=== PATIENT | male | born 1955 | race Caucasian/White ===

== ENCOUNTER 2017-03-30 01:50 | Emergency (ER) | payer OTHER ==
[~2017-03-30] VITALS: Ht 175.3 cm; Wt 88.0 kg
[2017-03-30] VITALS (7 sets, daily range): BP systolic 188–231; BP diastolic 98–131; PULSE 62–83; RESP 16–19; TEMP 98.5–99.1; O2SAT 95–99
[~2017-03-30 01:50] MED LIST: CLON.1 PO; DIVA250T PO; GLIP1TAB18 PO; GLUCTES27 XX; HYDR-3580 PO; HYDRA25 PO; LISI40TA PO; Z.0.WALKERFOLD
[2017-03-30] MEDS ORDERED: HYDR-3799 PO (02:14)
[2017-03-30] MEDS ORDERED: DIVA250T PO (02:14)
[2017-03-30] MEDS ORDERED: GLIP5TAB8 PO (02:14)
[2017-03-30] MEDS ORDERED: CLON0.1T PO (02:14)
[2017-03-30] MEDS ORDERED: LOSA100T PO (02:14)
[2017-03-30] MEDS ORDERED: METF850T PO (02:14)
[2017-03-30] MEDS ORDERED: SODIUM CHLORIDE 0.9% FLUSH 10 ML FLUSH IVF PRN (02:15)
[2017-03-30] MEDS ORDERED: PROCHLORPERAZINE INJ 10 MG/2 ML VIAL IVP ONE (02:15)
[2017-03-30] MEDS ORDERED: diphenhydrAMINE HCL 50 MG/ML VIAL IVP ONE (02:15)
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
[2017-03-30] MEDS ORDERED: KETOROLAC TROMETHAMINE 30 MG/ML (IVP) VIAL IVP ONE (03:45)
[2017-03-30] MEDS: METOPROLOL TARTRATE 5 MG/5 ML VIAL IV PUSH PRN ×2 (03:53→04:09)
[2017-03-30 04:07] LABS: AUTOMATED NEUTROPHIL # 5.3 TH/MM3 (1.8-7.7); BASOPHIL % 0.5 % (0.0-2.0); EOSINOPHIL # 0.6 TH/MM3 (0-0.4); EOSINOPHIL % 7.2 % (0.0-4.0); HEMATOCRIT 32.4 % (39.0-51.0); HEMO FLAGS DIFF FINAL; LYMPH % 18.2 % (9.0-44.0); LYMPHOCYTE # 1.4 TH/MM3 (1.0-4.8); MEAN CELL VOLUME 87.9 FL (80.0-100.0); MEAN CORPUSCULAR HEMOGLOBIN 29.5 PG (27.0-34.0); MEAN CORPUSCULAR HGB CONC 33.6 % (32.0-36.0); NEUT % 66.1 % (16.0-70.0); PLATELET COUNT 162 TH/MM3 (150-450); RED BLOOD COUNT 3.68 MIL/MM3 (4.50-5.90); RED CELL DISTRIBUTION WIDTH 15.6 % (11.6-17.2)
[2017-03-30 04:11] LABS: BICARBONATE 28.1 MEQ/L (21.0-32.0)
--- NOTE | 2017-03-30 05:25 | RADRPT ---
EXAM DATE/TIME: 03/30/2017 04:47 [place] COMPARISON: No previous studies available for comparison. INDICATIONS : Headaches with high blood pressure. RADIATION DOSE: 38.02 CTDIvol (mGy) MEDICAL HISTORY : Hypertension. Diabetes mellitus type 2. SURGICAL HISTORY : Nephrectomy, right. ENCOUNTER: Initial ACUITY: 1 day PAIN SCALE: 8/10 LOCATION: Bilateral cranial TECHNIQUE: Multiple contiguous axial images were obtained of the head. Using automated exposure control and adj ustment of the mA and/or kV according to patient size, radiation dose was kept as low as reasonably a chievable to obtain optimal diagnostic quality images. DICOM format image data is available electro nically for review and comparison. FINDINGS: There is a 1.6 cm low-attenuation lesion left parietal lobe with calcification similar to prior CT fr om March 06, 2016. No mass effect or shift. No hydrocephalus. No new brain lesions identified. Sinus es are clear.. CONCLUSION: 1. Stable 1.6 cm lesion left parietal lobe with calcification. This was previously evaluated on MRI. No new findings. Wilmar Velazco MD on March 30, 2017 at 5:20 Board Certified Radiologist. This report was verified electronically.
--- NOTE | 2017-03-30 14:00 | EKG ---
Date Performed: 03/30/2017 Time Performed: 03:58:44 PTAGE: 61 years EKG: Sinus rhythm RIGHT BUNDLE BRANCH BLOCK Compared to prior tracing no significant change ABNORMAL ECG PREVIOUS TRACING : 06/03/2016 16.43 DOCTOR: Ellen Lanza Interpretating Date/Time 03/30/2017 13:55:35
== END 2017-03-30 06:05 | disposition home or self-care (01) ==
LOC: NEPC 01:50
DX: G44.209 Tension-type headache, unspecified, not intractable (principal); I10 Essential (primary) hypertension; E11.9 Type 2 diabetes mellitus without complications; Z79.84 Long term (current) use of oral hypoglycemic drugs; I45.10 Unspecified right bundle-branch block; R07.9 Chest pain, unspecified
CPT/HCPCS: 70450; 80048; 84484; 85025; 93005; 96374; 96375; 99285; J0780; J1200; J1885

== ENCOUNTER 2017-04-01 20:37 | Emergency (ER) | payer OTHER ==
[~2017-04-01] VITALS: Ht 175.3 cm; Wt 91.5 kg
[~2017-04-01 20:37] MED LIST changes: -CLON.1 PO; +CLON0.1T PO; -GLIP1TAB18 PO; +GLIP5TAB8 PO; -GLUCTES27 XX; -HYDR-3580 PO; +HYDR-3799 PO; -HYDRA25 PO; -LISI40TA PO; +LOSA100T PO; +METF850T PO; -Z.0.WALKERFOLD
[2017-04-01 20:39] VITALS: BP 249/122; PULSE 83; RESP 18; TEMP 97.6; O2SAT 98
[2017-04-01 20:40] VITALS: BP 244/120
[2017-04-01] MEDS ORDERED: KETOROLAC TROMETHAMINE 30 MG/ML (IVP) VIAL IVP ONE (21:30)
[2017-04-01] MEDS ORDERED: diphenhydrAMINE HCL 50 MG/ML VIAL IVP ONE (21:30)
[2017-04-01] MEDS ORDERED: PROCHLORPERAZINE INJ 10 MG/2 ML VIAL IVP ONE (21:30)
[2017-04-01 22:09] VITALS: BP 225/114; PULSE 78; RESP 16; O2SAT 97
--- NOTE | 2017-04-02 05:57 | PD ---
Data Data Last Documented VS Vital Signs Date Time Temp Pulse Resp B/P (MAP) Pulse Ox O2 Delivery O2 Flow Rate FiO2 04/01/17 22:09 78 16 225/114 (151) 97 Room Air 04/01/17 20:39 97.6 Orders Orders Iv Access Insert/Monitor (04/01/17 21:21) Ketorolac Inj (Toradol Inj) (04/01/17 21:30) Prochlorperazine Inj (Compazine Inj) (04/01/17 21:30) Diphenhydramine Inj (Benadryl Inj) (04/01/17 21:30) MDM Supervised Visit with EMMA: Yes Narrative Course Patient care assumed from Heather [facility] at 2300. This is a 61 male presents emergency department for the second time this week for evaluation of headache. Patient is feeling better after medications administered, his blood pressure is elevated but she did have a CAT scan of his head and basic lab work already this week. No focalized weakness. I did discuss the risks benefits competitions and alternatives have a lumbar puncture to exclude subarachnoid hemorrhage and discussed risks of missing a subarachnoid hemorrhage. Patient verbalized understanding and wishes to forego lumbar puncture at this time except and risks of missed subarachnoid hemorrhage. At this point I discussed with him management of long-term blood pressure need follow-up with his primary care physician Dr. Almaguer. At this time there is no indication to acutely lower his blood pressure he is not apparently having any and organ failure from his blood pressure at this time. Diagnosis Primary Impression: Headache Disposition: 01 DISCHARGE HOME Condition: Stable Cruz Feliciano MD Apr 02, 2017 05:57
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
== END 2017-04-02 05:57 | disposition home or self-care (01) ==
LOC: NEPC 20:37
DX: R51 Headache (principal); R42 Dizziness and giddiness; E11.9 Type 2 diabetes mellitus without complications; I10 Essential (primary) hypertension; R56.9 Unspecified convulsions; Z87.820 Personal history of traumatic brain injury; Z86.73 Personal history of transient ischemic attack (TIA), and cerebral infarction without residual deficits; Z79.899 Other long term (current) drug therapy; Z88.0 Allergy status to penicillin
CPT/HCPCS: 96374; 96375; 99284; J0780; J1200; J1885

== ENCOUNTER 2017-08-16 22:05 | Inpatient (IN) | payer OTHER ==
[~2017-08-16] VITALS: Ht 175.3 cm; Wt 83.3 kg
[2017-08-16 22:06] VITALS: BP 220/110; PULSE 80; RESP 16; TEMP 98.6; O2SAT 98
[2017-08-17] VITALS (16 sets, daily range): BP systolic 161–204; BP diastolic 88–101; PULSE 72–90; RESP 16–20; TEMP 96–97.9; O2SAT 97–100
[2017-08-17] MEDS ORDERED: hydrALAZINE HCL 20 MG/ML VIAL IV PUSH ONE ×2 (00:30→02:15)
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
[2017-08-17 00:56] LABS: AUTOMATED NEUTROPHIL # 5.8 TH/MM3 (1.8-7.7); BASOPHIL # 0.1 TH/MM3 (0-0.2); BASOPHIL % 0.8 % (0.0-2.0); EOSINOPHIL # 0.4 TH/MM3 (0-0.4); EOSINOPHIL % 4.1 % (0.0-4.0); HEMATOCRIT 33.7 % (39.0-51.0); HEMOGLOBIN 11.6 GM/DL (13.0-17.0); LYMPH % 22.4 % (9.0-44.0); LYMPHOCYTE # 2.1 TH/MM3 (1.0-4.8); MEAN CELL VOLUME 85.9 FL (80.0-100.0); MEAN CORPUSCULAR HEMOGLOBIN 29.6 PG (27.0-34.0); MEAN CORPUSCULAR HGB CONC 34.4 % (32.0-36.0); MEAN PLATELET VOLUME 8.3 FL (7.0-11.0); MONO % 8.8 % (0.0-8.0); MONOCYTE # 0.8 TH/MM3 (0-0.9); NEUT % 63.9 % (16.0-70.0); PLATELET COUNT 161 TH/MM3 (150-450); RED BLOOD COUNT 3.93 MIL/MM3 (4.50-5.90); RED CELL DISTRIBUTION WIDTH 14.9 % (11.6-17.2); WHITE BLOOD COUNT 9.2 TH/MM3 (4.0-11.0)
[2017-08-17 01:07] LABS: PROTHROMBIN TIME - PATIENT 10.1 SEC (9.8-11.6)
--- NOTE | 2017-08-17 01:14 | RADRPT ---
EXAM DATE/TIME: 08/17/2017 00:49 [facility] COMPARISON: CHEST SINGLE AP, March 25, 2015, 0:03. INDICATIONS : Short of breath, chest pain. MEDICAL HISTORY : None. SURGICAL HISTORY : None. ENCOUNTER: Initial ACUITY: 1 day PAIN SCORE: 4/10 LOCATION: Bilateral chest FINDINGS: A single view of the chest demonstrates no focal consolidation or effusion. No pneumothorax. Heart si ze within normal limits and mildly tortuous aorta. CONCLUSION: 1. No active disease. Wilmar Velazco MD on August 17, 2017 at 1:11 Board Certified Radiologist. This report was verified electronically.
--- NOTE | 2017-08-17 01:39 | RADRPT ---
EXAM DATE/TIME: 08/17/2017 01:00 [facility] COMPARISON: MRI BRAIN W/O CONTRAST, March 06, 2016, 17:19. INDICATIONS : Cephalgia. RADIATION DOSE: 38.83 CTDIvol (mGy) MEDICAL HISTORY : Seizures. Cardiovascular disease TBI SURGICAL HISTORY : None. ENCOUNTER: Initial ACUITY: 1 day PAIN SCALE: 5/10 LOCATION: cranial TECHNIQUE: Multiple contiguous axial images were obtained of the head. Using automated exposure control and adj ustment of the mA and/or kV according to patient size, radiation dose was kept as low as reasonably a chievable to obtain optimal diagnostic quality images. DICOM format image data is available electro nically for review and comparison. FINDINGS: There is a focal area of low attenuation left parietal lobe with a patient, no significant change fro m February 2016. Prior MRI brain reveal an area of gliosis. No new mass or shift. No hydrocephalus. No evidence for recent infarction. No acute bony abnormalities. CONCLUSION: 1. Stable area of presumed gliosis and calcification in the left parietal lobe compared with multiple prior CTs. No acute intracranial abnormalities. Wilmar Velazco MD on August 17, 2017 at 1:33 Board Certified Radiologist. This report was verified electronically.
[2017-08-17 02:16] LABS: BICARBONATE 29.9 MEQ/L (21.0-32.0); BLOOD UREA NITROGEN 39 MG/DL (7-18); CALCIUM 8.9 MG/DL (8.5-10.1); CHLORIDE 101 MEQ/L (98-107); CREATININE 2.01 MG/DL (0.60-1.30); GLOMERULAR FILTRATION RATE 34 ML/MIN (>89); GLUCOSE,RANDOM 188 MG/DL (74-106); MAGNESIUM 2.2 MG/DL (1.5-2.5); SODIUM (NA) 136 MEQ/L (136-145)
[2017-08-17 02:19] LABS: TROPONIN I LESS THAN 0.02 NG/ML (0.02-0.05)
[2017-08-17] MEDS ORDERED: ASPIRIN 81 MG CHEW TAB CHEW ONE (02:45)
[2017-08-17] MEDS ORDERED: NITROGLYCERIN 2% OINT 1 GM PACKET TOPICAL ONE (02:45)
[2017-08-17] MEDS: SODIUM CHLORIDE 0.9% FLUSH 10 ML FLUSH IVF PRN ×2 (03:18→21:34)
[2017-08-17] MEDS: cloNIDine HCL 0.1 MG TAB PO PRN ×4 (05:44→22:48)
[2017-08-17] MEDS: DIVALPROEX SODIUM DELAYED RELEASE 250 MG TAB PO SCH ×3 (08:17→17:34)
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
[2017-08-17] MEDS ORDERED: DEXTROSE 50% IN WATER 50 ML VIAL(D50) IV PUSH PRN (10:00)
[2017-08-17] MEDS ORDERED: GLUCAGON 1 MG/ML VIAL OTHER PRN (10:00)
[2017-08-17] MEDS: NIFEdipine 60 MG SUSTAINED RELEASE TAB PO SCH ×2 (10:25→21:34)
[2017-08-17] MEDS ORDERED: ONDANSETRON HCL 4 MG/2 ML VIAL IV PRN (11:45)
[2017-08-17 12:04] LABS: BICARBONATE 31.1 MEQ/L (21.0-32.0); BLOOD UREA NITROGEN 34 MG/DL (7-18); CALCIUM 9.3 MG/DL (8.5-10.1); CHLORIDE 100 MEQ/L (98-107); CREATININE 1.86 MG/DL (0.60-1.30); GLOMERULAR FILTRATION RATE 37 ML/MIN (>89); GLUCOSE,RANDOM 243 MG/DL (74-106); SODIUM (NA) 135 MEQ/L (136-145)
[2017-08-17] MEDS: INSULIN ASPART SUPPLEMENTAL SCALE SQ SCH ×3 (12:21→21:37)
[2017-08-17 16:24] LABS: HEMOGLOBIN A1C 7.5 % (4.3-6.0)
[2017-08-17] MEDS: ACETAMINOPHEN 325 MG TAB PO PRN ×2 (17:41→22:48)
[2017-08-18] VITALS (22 sets, daily range): BP systolic 151–188; BP diastolic 76–92; PULSE 70–99; RESP 18–20; TEMP 98.2–99.1; O2SAT 97–100
--- NOTE | 2017-08-18 00:37 | EKG ---
Date Performed: 08/17/2017 Time Performed: 02:18:24 PTAGE: 61 years EKG: Sinus rhythm RIGHT BUNDLE BRANCH BLOCK ABNORMAL ECG PREVIOUS TRACING : 03/30/2017 03.58 Since the prior tracing, there has been no significant feliz DOCTOR: Farzad Perez Interpretating Date/Time 08/18/2017 00:36:07
[2017-08-18 06:40] LABS: AUTOMATED NEUTROPHIL # 8.3 TH/MM3 (1.8-7.7); BASOPHIL # 0.1 TH/MM3 (0-0.2); BASOPHIL % 0.5 % (0.0-2.0); EOSINOPHIL # 0.3 TH/MM3 (0-0.4); EOSINOPHIL % 2.9 % (0.0-4.0); HEMATOCRIT 40.1 % (39.0-51.0); LYMPH % 14.2 % (9.0-44.0); LYMPHOCYTE # 1.5 TH/MM3 (1.0-4.8); MEAN CELL VOLUME 86.5 FL (80.0-100.0); MEAN CORPUSCULAR HEMOGLOBIN 30.1 PG (27.0-34.0); MEAN CORPUSCULAR HGB CONC 34.8 % (32.0-36.0); MEAN PLATELET VOLUME 8.5 FL (7.0-11.0); MONO % 6.2 % (0.0-8.0); MONOCYTE # 0.7 TH/MM3 (0-0.9); NEUT % 76.2 % (16.0-70.0); PLATELET COUNT 240 TH/MM3 (150-450); RED BLOOD COUNT 4.63 MIL/MM3 (4.50-5.90); RED CELL DISTRIBUTION WIDTH 15.4 % (11.6-17.2); WHITE BLOOD COUNT 10.9 TH/MM3 (4.0-11.0)
[2017-08-18 07:03] LABS: BICARBONATE 24.2 MEQ/L (21.0-32.0); CALCIUM 9.5 MG/DL (8.5-10.1); CREATININE 1.88 MG/DL (0.60-1.30); MAGNESIUM 2.2 MG/DL (1.5-2.5)
[2017-08-18] MEDS: ACETAMINOPHEN 325 MG TAB PO PRN ×3 (08:55→19:51)
[2017-08-18] MEDS: DIVALPROEX SODIUM DELAYED RELEASE 250 MG TAB PO SCH ×3 (08:55→17:17)
[2017-08-18] MEDS: NIFEdipine 60 MG SUSTAINED RELEASE TAB PO SCH ×2 (08:56→19:50)
[2017-08-18] MEDS: ASPIRIN EC 81 MG TABEC PO SCH (08:56)
[2017-08-18] MEDS: cloNIDine HCL 0.1 MG TAB PO PRN ×2 (08:56→23:16)
[2017-08-18] MEDS: INSULIN ASPART SUPPLEMENTAL SCALE SQ SCH ×4 (09:04→19:51)
[2017-08-18] MEDS ORDERED: NIFE60TA8 PO (15:49)
--- NOTE | 2017-08-18 16:20 | ECHRPT ---
Indication: HEART FAILURE CONCLUSIONS Normal left ventricular size. Mild concentric left ventricular hypertrophy. The left ventricular systolic function is hyperdynamic with an estimated ejection fraction in the ra nge of 65- 70%. There is trace tricuspid valve regurgitation. BP: 180 / 101 HR: 86 Rhythm: MEASUREMENTS (Male / Female) Normal Values Technical Quality:Good 2D ECHO LV Diastolic Diameter PLAX 4.3 cm 4.2 - 5.9 / 3.9 - 5.3 cm LV Systolic Diameter PLAX 3.3 cm IVS Diastolic Thickness 1.5 cm 0.6 - 1.0 / 0.6 - 0.9 cm LVPW Diastolic Thickness 1.0 cm 0.6 - 1.0 / 0.6 - 0.9 cm LV Relative Wall Thickness 0.6 RV Internal Dim ED PLAX 2.1 cm LA Systolic Diameter LX 3.8 cm 3.0 - 4.0 / 2.7 - 3.8 cm M-MODE Aortic Root Diameter MM 3.4 cm AV Cusp Separation MM 2.4 cm DOPPLER Mitral E Point Velocity 81.2 cm/s Mitral A Point Velocity 116.0 cm/s Mitral E to A Ratio 0.7 TR Peak Velocity 305.0 cm/s TR Peak Gradient 37.2 mmHg FINDINGS LEFT VENTRICLE Normal left ventricular size. Mild concentric left ventricular hypertrophy. The left ventricular systolic function is hyperdynamic with an estimated ejection fraction in the ra nge of 65- 70%. RIGHT VENTRICLE Normal right ventricular size and systolic function. LEFT ATRIUM The left atrial size is normal. RIGHT ATRIUM The right atrial size is normal. ATRIAL SEPTUM Normal atrial septal thickness without atrial level shunting by limited color doppler interrogation. AORTA The aortic root and proximal ascending aorta are normal in size on limited imaging. MITRAL VALVE Trace mitral valve regurgitation. AORTIC VALVE Trileaflet aortic valve. No aortic valve stenosis or regurgitation. TRICUSPID VALVE There is trace tricuspid valve regurgitation. PULMONARY VALVE The pulmonary valve is not well visualized. VESSELS The inferior vena cava is normal in size. PERICARDIUM No pericardial effusion. Christopher Dallas MD (Electronically Signed) Final Date:18 August 2017 16:19
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
[2017-08-18] MEDS: glipiZIDE 5 MG TAB PO SCH (17:17)
[2017-08-18] MEDS: METOPROLOL TARTRATE 25 MG TAB PO SCH (19:50)
[2017-08-19] VITALS (30 sets, daily range): BP systolic 149–186; BP diastolic 81–100; PULSE 67–94; RESP 16–18; TEMP 97.8–98.8; O2SAT 95–98
[2017-08-19] MEDS: ACETAMINOPHEN 325 MG TAB PO PRN (05:27)
[2017-08-19 06:37] LABS: BICARBONATE 24.6 MEQ/L (21.0-32.0); CALCIUM 9.8 MG/DL (8.5-10.1); CREATININE 2.03 MG/DL (0.60-1.30)
[2017-08-19] MEDS: INSULIN ASPART SUPPLEMENTAL SCALE SQ SCH ×4 (08:00→20:05)
[2017-08-19] MEDS: glipiZIDE 5 MG TAB PO SCH ×2 (08:42→18:14)
[2017-08-19] MEDS: NIFEdipine 60 MG SUSTAINED RELEASE TAB PO SCH ×2 (08:42→20:05)
[2017-08-19] MEDS: ASPIRIN EC 81 MG TABEC PO SCH (08:43)
[2017-08-19] MEDS: METOPROLOL TARTRATE 25 MG TAB PO SCH ×2 (08:43→20:05)
[2017-08-19] MEDS ORDERED: METO25TA3 PO (08:43)
[2017-08-19] MEDS: DIVALPROEX SODIUM DELAYED RELEASE 250 MG TAB PO SCH ×3 (08:43→18:14)
[2017-08-19] MEDS ORDERED: METOPROLOL TARTRATE 25 MG TAB PO ONE (10:15)
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
--- NOTE | 2017-08-19 17:29 | RADRPT ---
EXAM DATE/TIME: 08/19/2017 16:13 [facility] COMPARISON: No previous studies available for comparison. INDICATIONS : Accelerated hypertension. Elevated CK-MB. MEDICAL HISTORY : Hypertension. Seizures. Head trauma. Headaches. Numbness. Diabetes. HEENT problems. Eye problems. H earing problems. TIA. SURGICAL HISTORY : Tonsillectomy. Nephrectomy, right. Appendectomy. Abdominal Exploratory laparotomy. ENCOUNTER: Initial ACUITY: 1 day PAIN SCORE: 0/10 LOCATION: Bilateral flank PEAK FLOW VELOCITIES (cm/sec): aorta PROXIMAL: UTO MID: UTO DISTAL: 100.0 RIGHT RENAL ARTERY: PROXIMAL: UTO MID: UTO DISTAL: UTO RENAL ARTERY RATIO: --- Upper: Mid: Lower: LEFT RENAL ARTERY: PROXIMAL: 151.0 MID: 182.5 DISTAL: 206.2 RENAL ARTERY RATIO: 2.0 ARCUATE ARTERY RESISTIVE INDEX: Upper: 0.8 Mid: 0.7 Lower: 0.7 FINDINGS: Bowel gas obscures the proximal and mid aorta. The patient has undergone prior right nephrectomy. Nor mal low resistance waveform is seen on the left. Left renal vein is patent. Mild pelvocaliectasis wit hout hydronephrosis. CONCLUSION: 1. Prior right nephrectomy. 2. No appreciable renal artery stenosis on the left. 3. Mild pelvocaliectasis on the left without anton hydronephrosis. Remington Brady Jr., MD on August 19, 2017 at 17:17 Board Certified Radiologist. This report was verified electronically.
[2017-08-19] MEDS: traMADol HCL 50 MG TAB PO PRN (18:18)
[2017-08-20] VITALS (20 sets, daily range): BP systolic 145–182; BP diastolic 86–95; PULSE 70–97; RESP 16–18; TEMP 97.7–98.5; O2SAT 95–98
[2017-08-20] MEDS: traMADol HCL 50 MG TAB PO PRN ×2 (02:39→16:47)
[2017-08-20] MEDS: METOPROLOL TARTRATE 25 MG TAB PO SCH ×2 (08:03→21:24)
[2017-08-20] MEDS: DIVALPROEX SODIUM DELAYED RELEASE 250 MG TAB PO SCH ×3 (08:03→16:34)
[2017-08-20] MEDS: INSULIN ASPART SUPPLEMENTAL SCALE SQ SCH ×4 (08:03→21:00)
[2017-08-20] MEDS: NIFEdipine 60 MG SUSTAINED RELEASE TAB PO SCH ×2 (08:04→21:24)
[2017-08-20] MEDS: ASPIRIN EC 81 MG TABEC PO SCH (08:04)
[2017-08-20] MEDS: glipiZIDE 5 MG TAB PO SCH ×2 (08:04→16:34)
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
[2017-08-20 17:12] LABS: BILIRUBIN, URINE NEG (NEG); BLOOD, URINE SMALL (NEG); GLUCOSE,URINE 300 mg/dL (NEG); KETONE, URINE NEG (NEG); NITRITE,URINE NEG (NEG); PH, URINE 6.5 (5.0-8.5); SQUAMOUS EPITHELIAL CELL URINE <1 /hpf (0-5); URINE COLOR YELLOW (YELLW/STRAW); URINE LEUKOCYTE ESTERASE NEG (NEG)
[2017-08-20 20:44] LABS: ALBUMIN 3.3 GM/DL (3.4-5.0); ALKALINE PHOSPHATASE 84 U/L (45-117); ALT (GPT) 40 U/L (12-78); AST (GOT) 21 U/L (15-37); BICARBONATE 27.9 MEQ/L (21.0-32.0); BLOOD UREA NITROGEN 53 MG/DL (7-18); CALCIUM 9.8 MG/DL (8.5-10.1); CHLORIDE 97 MEQ/L (98-107); GLOMERULAR FILTRATION RATE 29 ML/MIN (>89); GLUCOSE,RANDOM 144 MG/DL (74-106); SODIUM (NA) 133 MEQ/L (136-145); TOTAL BILIRUBIN ADULT 0.4 MG/DL (0.2-1.0); TOTAL PROTEIN 8.4 GM/DL (6.4-8.2)
[2017-08-20] MEDS: SODIUM CHLORIDE 0.9% FLUSH 10 ML FLUSH IVF PRN (21:24)
[2017-08-20] MEDS: hydrALAZINE HCL 25 MG TAB PO SCH (21:24)
[2017-08-20] MEDS: LATANOPROST 0.005% OPHT SOLN 2.5 ML BTL EACH EYE SCH (21:25)
[2017-08-20 21:58] LABS: COMPLEMENT C3 135 MG/DL (90-180); COMPLEMENT C4 36 MG/DL (10-40)
[2017-08-21] VITALS (26 sets, daily range): BP systolic 152–192; BP diastolic 81–95; PULSE 62–94; RESP 16–18; TEMP 98–98.3; O2SAT 98–100
[2017-08-21] MEDS: ACETAMINOPHEN 325 MG TAB PO PRN (03:24)
[2017-08-21 07:25] LABS: AUTOMATED NEUTROPHIL # 7.3 TH/MM3 (1.8-7.7); BASOPHIL # 0.1 TH/MM3 (0-0.2); BASOPHIL % 0.5 % (0.0-2.0); EOSINOPHIL # 0.5 TH/MM3 (0-0.4); EOSINOPHIL % 4.9 % (0.0-4.0); HEMATOCRIT 40.4 % (39.0-51.0); HEMOGLOBIN 13.7 GM/DL (13.0-17.0); LYMPH % 17.3 % (9.0-44.0); LYMPHOCYTE # 1.8 TH/MM3 (1.0-4.8); MEAN CELL VOLUME 87.1 FL (80.0-100.0); MEAN CORPUSCULAR HEMOGLOBIN 29.6 PG (27.0-34.0); MONO % 7.3 % (0.0-8.0); MONOCYTE # 0.8 TH/MM3 (0-0.9); PLATELET COUNT 214 TH/MM3 (150-450); RED BLOOD COUNT 4.64 MIL/MM3 (4.50-5.90); RED CELL DISTRIBUTION WIDTH 15.3 % (11.6-17.2); WHITE BLOOD COUNT 10.5 TH/MM3 (4.0-11.0)
[2017-08-21 07:35] LABS: BICARBONATE 25.9 MEQ/L (21.0-32.0); CALCIUM 9.1 MG/DL (8.5-10.1); CREATININE 2.05 MG/DL (0.60-1.30); MAGNESIUM 2.7 MG/DL (1.5-2.5)
[2017-08-21] MEDS: hydrALAZINE HCL 25 MG TAB PO SCH (08:35)
[2017-08-21] MEDS: TIMOLOL MALEATE 0.5% OPHT SOLN 5 ML BTL EACH EYE SCH (08:35)
[2017-08-21] MEDS: NIFEdipine 60 MG SUSTAINED RELEASE TAB PO SCH ×2 (08:35→20:54)
[2017-08-21] MEDS: DIVALPROEX SODIUM DELAYED RELEASE 250 MG TAB PO SCH ×3 (08:35→16:52)
[2017-08-21] MEDS: glipiZIDE 10 MG TAB PO SCH (08:36)
[2017-08-21] MEDS: METOPROLOL TARTRATE 25 MG TAB PO SCH ×2 (08:36→20:54)
[2017-08-21] MEDS: ASPIRIN EC 81 MG TABEC PO SCH (08:36)
[2017-08-21] MEDS: INSULIN ASPART SUPPLEMENTAL SCALE SQ SCH ×4 (08:37→20:55)
[2017-08-21] MEDS ORDERED: SODIUM POLYSTYRENE SULFONATE SUSP 15 GM/60 ML CUP PO ONE (09:15)
[2017-08-21] MEDS ORDERED: GADOBENATE DIM PF 529 MG/ML 10ML VIAL (for RAD MRI) IV ONE (09:37)
--- NOTE | 2017-08-21 09:57 | RADRPT ---
EXAM DATE/TIME: 08/21/2017 09:14 [facility] COMPARISON: US RENAL ART & VEINS DOPPLER, August 19, 2017, 16:13. INDICATIONS : Left renal artery stenosis. CONTRAST: 8 cc Multihance (gadobenate) IV MEDICAL HISTORY : Hypertension. Diabetes mellitus type 2. SURGICAL HISTORY : Nephrectomy, right. ENCOUNTER: Initial ACUITY: 1 day PAIN SCORE: 0/10 LOCATION: Abdomen. TECHNIQUE: Bolus infused MR angiography was performed. The data was postprocessed with a variety of visualizati on algorithms including full-volume maximum-intensity projection, multiplanar sliding thin slab refor mation, and curved planar reformation. FINDINGS: ABDOMINAL AORTA: The lumen is smooth without significant narrowing or aneurysmal dilatation. The proximal celiac and s uperior mesenteric arteries are patent and normal in diameter. RENAL ARTERIES: There is a solitary left renal artery. No evidence of ostial or segmental stenosis. KIDNEYS: There is symmetric renal size. There is homogeneous enhancement in the parenchyma. Right kidney surg ically absent. There are some cysts in the left kidney parapelvic region. BIFURCATION: Normal. RIGHT PELVIS: The right common iliac, internal iliac, and external iliac vessels are patent without luminal irregul arity. LEFT PELVIS: The left common iliac, internal iliac, and external iliac vessels are patent and without luminal irre gularity. RETROPERITONEUM: The adrenal glands are unremarkable. No adenopathy seen. CONCLUSION: 1. Normal appearing left renal artery. 2. Right nephrectomy. 3. Parapelvic left renal cysts. Kee Gregorio MD on August 21, 2017 at 9:50 Board Certified Radiologist. This report was verified electronically.
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
[2017-08-21] MEDS ORDERED: hydrALAZINE HCL 25 MG TAB PO ONE (12:30)
--- NOTE | 2017-08-21 12:32 | HHI.NPPN ---
Subjective History of Present Illness 61 Year old male with Diabetes, HTN and Proteinuria 12 grams Review of Systems General Constitutional: Fatigue Objective Data Data Vital Signs Date Time Temp Pulse Resp B/P (MAP) Pulse Ox O2 Delivery O2 Flow Rate FiO2 08/21/17 11:58 98.0 87 16 174/91 (118) 98 08/21/17 09:00 78 08/21/17 08:00 82 08/21/17 07:44 99 Room Air 08/21/17 07:44 98.0 80 18 163/86 (111) 99 08/21/17 07:00 76 08/21/17 06:00 78 08/21/17 05:00 78 08/21/17 04:00 86 08/21/17 03:24 82 16 162/81 (108) 98 08/21/17 03:00 75 08/21/17 02:00 78 08/21/17 01:00 72 08/21/17 00:00 70 08/20/17 23:36 71 16 145/95 (112) 95 08/20/17 23:00 75 08/20/17 22:00 86 08/20/17 21:00 86 08/20/17 20:00 84 08/20/17 19:45 98 Room Air 08/20/17 19:45 98.5 84 16 182/86 (118) 98 08/20/17 19:00 82 08/20/17 15:52 97.8 83 17 158/87 (110) 98 08/20/17 15:00 80 -: 08/21/17 0638 08/21/17 0638 Physical Exam General Appearance: Well Developed, Well Nourished Eyes Eye Exam: Pupils Equal Neck Neck Exam: Neck Supple Pulmonary Resp Exam: Clear Bilaterally, Breath Sounds Equal Cardiology CV Exam: Regular, Normal Sinus Rhythm, Good Perfusion Gastrointestinal/Abdomen GI Exam: Soft, Non-Tender, Bowel Sounds Present Extremeties Extremities Exam: Moderate Edema Assessment/Plan Problem List: (1) Protein in urine ICD Codes: R80.9 - Proteinuria, unspecified Plan: He could have a hyperfiltration injury like FSGS Other possibility is underlying diabetic kidney disease along with hypertensive nephrosclerosis We'll check SCOTT, C3-C4 ANCA hepatitis screen Discussed Biopsy he has single kidney bleeding associated with biopsy explained, it is rare to develop kidney failure patient on ASA stopped today may need to check platelet function may need to arrange this as out patient (2) Acute renal failure superimposed on stage 3 chronic kidney disease ICD Codes: N17.9 - Acute kidney failure, unspecified; N18.3 - Chronic kidney disease, stage 3 (moderate) Status: Chronic Plan: 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 his urine output is 3.2 L and protein losses 12 g other possibility like diabetic Kidney disease is also consider although duration of diabetes in his only 5 years other Significant findings he has Doppler of abdomen which did not detect any abnormal signals indicating renal artery stenosis however we will get MRA for definite diagnosis Check lipid panel MRA abdomen negative K 5.6 given Kayexalate Biopsy can be done as out patient Continue to monitor (3) Accelerated hypertension ICD Codes: I10 - Essential (primary) hypertension Status: Acute Plan: today he has hyperkalemia BP still labile Immanuel Kapoor MD Aug 21, 2017 12:32
[2017-08-21] MEDS: cloNIDine HCL 0.1 MG TAB PO PRN (16:34)
[2017-08-21] MEDS: glipiZIDE 5 MG TAB PO SCH (16:52)
[2017-08-21] MEDS: hydrALAZINE HCL 50 MG TAB PO SCH (20:54)
[2017-08-21] MEDS: SODIUM CHLORIDE 0.9% FLUSH 10 ML FLUSH IVF PRN (20:55)
[2017-08-21] MEDS: LATANOPROST 0.005% OPHT SOLN 2.5 ML BTL EACH EYE SCH (20:57)
[2017-08-22] VITALS (31 sets, daily range): BP systolic 142–187; BP diastolic 79–102; PULSE 70–98; RESP 16–18; TEMP 98–98.4; O2SAT 77–99
[2017-08-22] MEDS: INSULIN ASPART SUPPLEMENTAL SCALE SQ SCH ×4 (08:00→21:09)
[2017-08-22] MEDS: TIMOLOL MALEATE 0.5% OPHT SOLN 5 ML BTL EACH EYE SCH (08:04)
[2017-08-22] MEDS: glipiZIDE 10 MG TAB PO SCH (08:05)
[2017-08-22] MEDS: DIVALPROEX SODIUM DELAYED RELEASE 250 MG TAB PO SCH ×3 (08:05→17:42)
[2017-08-22] MEDS: NIFEdipine 60 MG SUSTAINED RELEASE TAB PO SCH ×2 (08:05→21:07)
[2017-08-22] MEDS: METOPROLOL TARTRATE 25 MG TAB PO SCH ×2 (08:05→21:07)
[2017-08-22] MEDS: hydrALAZINE HCL 50 MG TAB PO SCH ×3 (08:05→17:43)
[2017-08-22 08:33] LABS: BICARBONATE 28.4 MEQ/L (21.0-32.0); CALCIUM 8.6 MG/DL (8.5-10.1); CREATININE 1.89 MG/DL (0.60-1.30)
[2017-08-22 08:40] LABS: PLATELET FUNCTION TEST/EPI 157 SECONDS (103-176)
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
[2017-08-22 11:41] LABS: PROTHROMBIN TIME - PATIENT 10.1 SEC (9.8-11.6)
--- NOTE | 2017-08-22 12:33 | HHI.NPPN ---
Subjective History of Present Illness 61 Year old male with Diabetes, HTN and Proteinuria 12 grams Review of Systems General Constitutional: Fatigue Objective Data Data Vital Signs Date Time Temp Pulse Resp B/P (MAP) Pulse Ox O2 Delivery O2 Flow Rate FiO2 08/22/17 10:00 74 08/22/17 09:55 76 162/79 (106) 77 08/22/17 09:00 76 08/22/17 08:00 84 08/22/17 07:34 98.4 78 18 187/102 (130) 97 08/22/17 07:34 97 Room Air 08/22/17 07:00 83 08/22/17 06:00 88 08/22/17 05:00 80 08/22/17 04:28 82 16 164/87 (112) 97 08/22/17 04:00 76 08/22/17 03:00 77 08/22/17 02:00 80 08/22/17 01:00 76 08/22/17 00:00 74 08/21/17 23:50 76 16 152/87 (108) 98 08/21/17 23:00 75 08/21/17 22:00 72 08/21/17 21:00 90 08/21/17 20:00 94 08/21/17 19:50 98.3 86 16 159/94 (115) 98 08/21/17 19:50 Room Air 08/21/17 19:00 84 08/21/17 18:02 81 08/21/17 17:54 167/85 (112) 08/21/17 17:00 86 08/21/17 16:24 98.3 89 18 192/95 (127) 100 08/21/17 16:00 88 08/21/17 15:00 87 -: 08/21/17 0638 08/22/17 0730 Physical Exam General Appearance: Well Developed, Well Nourished Eyes Eye Exam: Pupils Equal Neck Neck Exam: Neck Supple Pulmonary Resp Exam: Clear Bilaterally, Breath Sounds Equal Cardiology CV Exam: Regular, Normal Sinus Rhythm, Good Perfusion Gastrointestinal/Abdomen GI Exam: Soft, Non-Tender, Bowel Sounds Present Extremeties Extremities Exam: Moderate Edema Assessment/Plan Problem List: (1) Protein in urine ICD Codes: R80.9 - Proteinuria, unspecified Plan: He could have a hyperfiltration injury like FSGS Other possibility is underlying diabetic kidney disease along with hypertensive nephrosclerosis SCOTT, C3-C4 normal . pending ANCA hepatitis screen check for SPEP Discussed Biopsy he has single kidney bleeding associated with biopsy explained, it is rare to develop kidney failure patient on ASA stopped yesterday Platelet functions normal d/w Dr. Larkin will try for tomorrow (2) Acute renal failure superimposed on stage 3 chronic kidney disease ICD Codes: N17.9 - Acute kidney failure, unspecified; N18.3 - Chronic kidney disease, stage 3 (moderate) Status: Acute Plan: 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 his urine output is 3.2 L and protein losses 12 g other possibility like diabetic Kidney disease is also consider although duration of diabetes in his only 5 years other Significant findings he has Doppler of abdomen which did not detect any abnormal signals indicating renal artery stenosis Check lipid panel MRA abdomen negative Continue to monitor (3) Accelerated hypertension ICD Codes: I10 - Essential (primary) hypertension Status: Acute Plan: today he has hyperkalemia BP still labile Immanuel Kapoor MD Aug 22, 2017 12:33
[2017-08-22] MEDS: traMADol HCL 50 MG TAB PO PRN (15:18)
[2017-08-22] MEDS: glipiZIDE 5 MG TAB PO SCH (17:43)
[2017-08-22] MEDS: LATANOPROST 0.005% OPHT SOLN 2.5 ML BTL EACH EYE SCH (21:00)
[2017-08-22] MEDS: SODIUM CHLORIDE 0.9% FLUSH 10 ML FLUSH IVF PRN (21:09)
[2017-08-23] VITALS (30 sets, daily range): BP systolic 151–195; BP diastolic 75–94; PULSE 62–94; RESP 16–18; TEMP 97.6–99; O2SAT 96–99
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
[2017-08-23] MEDS: INSULIN ASPART SUPPLEMENTAL SCALE SQ SCH ×4 (08:00→20:49)
[2017-08-23] MEDS: glipiZIDE 10 MG TAB PO SCH (08:00)
[2017-08-23 08:06] LABS: AUTOMATED NEUTROPHIL # 6.5 TH/MM3 (1.8-7.7); BASOPHIL # 0.1 TH/MM3 (0-0.2); BASOPHIL % 0.7 % (0.0-2.0); EOSINOPHIL # 0.3 TH/MM3 (0-0.4); EOSINOPHIL % 2.9 % (0.0-4.0); HEMATOCRIT 39.7 % (39.0-51.0); HEMOGLOBIN 13.6 GM/DL (13.0-17.0); LYMPH % 14.2 % (9.0-44.0); LYMPHOCYTE # 1.2 TH/MM3 (1.0-4.8); MEAN CELL VOLUME 87.1 FL (80.0-100.0); MEAN CORPUSCULAR HEMOGLOBIN 29.7 PG (27.0-34.0); MEAN CORPUSCULAR HGB CONC 34.2 % (32.0-36.0); MONO % 6.7 % (0.0-8.0); MONOCYTE # 0.6 TH/MM3 (0-0.9); NEUT % 75.5 % (16.0-70.0); PLATELET COUNT 192 TH/MM3 (150-450); RED BLOOD COUNT 4.56 MIL/MM3 (4.50-5.90); RED CELL DISTRIBUTION WIDTH 15.3 % (11.6-17.2); WHITE BLOOD COUNT 8.6 TH/MM3 (4.0-11.0)
[2017-08-23] MEDS: TIMOLOL MALEATE 0.5% OPHT SOLN 5 ML BTL EACH EYE SCH (08:12)
[2017-08-23] MEDS: NIFEdipine 60 MG SUSTAINED RELEASE TAB PO SCH ×2 (08:12→20:40)
[2017-08-23] MEDS: hydrALAZINE HCL 50 MG TAB PO SCH ×4 (08:13→18:00)
[2017-08-23] MEDS: METOPROLOL TARTRATE 25 MG TAB PO SCH ×2 (08:13→20:39)
[2017-08-23] MEDS: DIVALPROEX SODIUM DELAYED RELEASE 250 MG TAB PO SCH ×5 (08:14→18:50)
[2017-08-23 08:22] LABS: BICARBONATE 30.3 MEQ/L (21.0-32.0); CALCIUM 8.7 MG/DL (8.5-10.1); CREATININE 1.74 MG/DL (0.60-1.30)
[2017-08-23 08:24] LABS: CHOLESTEROL/ HDL RATIO 5.74 RATIO; HDL CHOLESTEROL 36.9 MG/DL (40.0-60.0)
--- NOTE | 2017-08-23 10:29 | HHI.NPPN ---
Subjective History of Present Illness 61 Year old male with Diabetes, HTN and Proteinuria 12 grams Review of Systems General Constitutional: Fatigue Objective Data Data Vital Signs Date Time Temp Pulse Resp B/P (MAP) Pulse Ox O2 Delivery O2 Flow Rate FiO2 08/23/17 09:00 69 08/23/17 08:00 62 08/23/17 07:54 98.2 85 18 176/86 (116) 99 08/23/17 07:54 Room Air 99 08/23/17 07:00 85 08/23/17 06:00 78 08/23/17 05:00 80 08/23/17 04:00 94 08/23/17 03:46 77 16 152/75 (100) 99 08/23/17 03:00 73 08/23/17 02:00 70 08/23/17 01:00 72 08/23/17 00:00 72 08/22/17 23:33 72 16 142/83 (102) 98 08/22/17 23:00 70 08/22/17 22:00 72 08/22/17 21:55 98 Room Air 08/22/17 21:00 88 08/22/17 20:00 86 08/22/17 19:30 98.0 90 16 175/82 (113) 98 08/22/17 19:00 89 08/22/17 18:00 98 08/22/17 17:00 82 08/22/17 16:58 88 08/22/17 16:00 88 08/22/17 15:08 98.2 89 18 174/92 (119) 99 08/22/17 15:00 88 08/22/17 14:00 86 08/22/17 13:00 88 08/22/17 12:00 80 08/22/17 11:00 80 08/22/17 11:00 98.0 82 18 170/86 (114) 98 -: 08/23/17 0645 08/23/17 0645 Physical Exam General Appearance: Well Developed, Well Nourished Eyes Eye Exam: Pupils Equal Neck Neck Exam: Neck Supple Pulmonary Resp Exam: Clear Bilaterally, Breath Sounds Equal Cardiology CV Exam: Regular, Normal Sinus Rhythm, Good Perfusion Gastrointestinal/Abdomen GI Exam: Soft, Non-Tender, Bowel Sounds Present Extremeties Extremities Exam: Moderate Edema Assessment/Plan Problem List: (1) Protein in urine ICD Codes: R80.9 - Proteinuria, unspecified Plan: He could have a hyperfiltration injury like FSGS Other possibility is underlying diabetic kidney disease along with hypertensive nephrosclerosis SCOTT, C3-C4 normal . 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
[2017-08-23] MEDS ORDERED: LIDOCAINE HCL 1% 20 ML VIAL ONE (11:20)
[2017-08-23] MEDS ORDERED: MIDAZOLAM HCL 2 MG/2 ML VIAL ONE (11:37)
[2017-08-23 13:09] LABS: HEMATOCRIT 37.3 % (39.0-51.0)
[2017-08-23 14:18] LABS: AUTOMATED NEUTROPHIL # 7.2 TH/MM3 (1.8-7.7); BASOPHIL # 0.1 TH/MM3 (0-0.2); BASOPHIL % 0.7 % (0.0-2.0); EOSINOPHIL # 0.3 TH/MM3 (0-0.4); EOSINOPHIL % 2.7 % (0.0-4.0); LYMPH % 14.2 % (9.0-44.0); LYMPHOCYTE # 1.3 TH/MM3 (1.0-4.8); MEAN CELL VOLUME 86.7 FL (80.0-100.0); MEAN CORPUSCULAR HEMOGLOBIN 29.9 PG (27.0-34.0); MEAN CORPUSCULAR HGB CONC 34.4 % (32.0-36.0); MEAN PLATELET VOLUME 8.6 FL (7.0-11.0); MONO % 5.9 % (0.0-8.0); MONOCYTE # 0.6 TH/MM3 (0-0.9); NEUT % 76.5 % (16.0-70.0); PLATELET COUNT 215 TH/MM3 (150-450); RED BLOOD COUNT 4.33 MIL/MM3 (4.50-5.90); RED CELL DISTRIBUTION WIDTH 15.2 % (11.6-17.2); WHITE BLOOD COUNT 9.4 TH/MM3 (4.0-11.0)
[2017-08-23 14:19] LABS: HEMATOCRIT 37.3 % (39.0-51.0)
[2017-08-23 14:54] LABS: AUTOMATED NEUTROPHIL # 6.3 TH/MM3 (1.8-7.7); BASOPHIL # 0.1 TH/MM3 (0-0.2); BASOPHIL % 0.7 % (0.0-2.0); EOSINOPHIL # 0.2 TH/MM3 (0-0.4); EOSINOPHIL % 2.6 % (0.0-4.0); HEMATOCRIT 35.9 % (39.0-51.0); HEMOGLOBIN 12.3 GM/DL (13.0-17.0); LYMPH % 14.5 % (9.0-44.0); LYMPHOCYTE # 1.2 TH/MM3 (1.0-4.8); MEAN CELL VOLUME 86.8 FL (80.0-100.0); MEAN CORPUSCULAR HEMOGLOBIN 29.7 PG (27.0-34.0); MEAN CORPUSCULAR HGB CONC 34.2 % (32.0-36.0); MEAN PLATELET VOLUME 8.3 FL (7.0-11.0); MONO % 5.1 % (0.0-8.0); MONOCYTE # 0.4 TH/MM3 (0-0.9); NEUT % 77.1 % (16.0-70.0); PLATELET COUNT 202 TH/MM3 (150-450); RED BLOOD COUNT 4.14 MIL/MM3 (4.50-5.90); RED CELL DISTRIBUTION WIDTH 15.4 % (11.6-17.2); WHITE BLOOD COUNT 8.2 TH/MM3 (4.0-11.0)
[2017-08-23 16:02] LABS: HEPATITIS A AB IGM NEGATIVE (NEGATIVE); HEPATITIS B CORE AB IGM NEGATIVE (NEGATIVE); HEPATITIS B SURFACE ANTIGEN NEGATIVE (NEGATIVE); HEPATITIS C AB IgG NEGATIVE (NEGATIVE)
--- NOTE | 2017-08-23 16:27 | RADRPT ---
EXAM DATE/TIME: 08/23/2017 11:50 [facility] COMPARISON: No previous studies available for comparison. INDICATIONS : Proteinuria. SEDATION TIME: 20 minutes BIOPSY SITE: Left MEDICATION(S): 1.) 2 mg midazolam (Versed) IV 2.) 100 mcg fentanyl (Sublimaze) IV DEVICE(S): 1.) 18 gauge Temno core biopsy needle MEDICAL HISTORY : Hypertension. Diabetes mellitus type 2. SURGICAL HISTORY : None. ENCOUNTER: Initial ACUITY: 1 day PAIN SCORE: 0/10 LOCATION: Left kidney A total of two core specimen(s) were obtained and sent to the laboratory for pathologic evaluation. PROCEDURE: 1. CT guided renal biopsy. 2. Conscious sedation with continuous EKG and oximetry monitoring. 3. EKG and oximetry remained stable throughout the procedure. Prior to the procedure informed consent was obtained. Any appropriate prior imaging studies were rev iewed. Using automated exposure control and adjustment of the mA and/or kV according to patient size, radiat ion dose was kept as low as reasonably achievable to obtain optimal diagnostic quality images. DICOM format image data is available electronically for review and comparison. The site was prepped in a sterile fashion. Full sterile technique was used, including cap, mask, frank rile gloves and gown and a large sterile sheet. Hand hygiene and 2% chlorhexidine and/or betadine/al cohol prep was utilized per protocol for cutaneous antisepsis. The skin and subcutaneous tissues wer e infiltrated with local anesthetic solution. With CT guidance the previously identified target was localized. Biopsy was performed using the presc ribed needle as above. Adequate hemostasis was obtained with compression at the puncture site. Follow-up CT scan reveals no hemorrhage. The patient tolerated the procedure well and there were no complications. The patient was returned to the Radiology Outpatient Unit in stable condition. CONCLUSION: Uncomplicated CT guided biopsy. Cruz Kraft MD on August 23, 2017 at 16:24 Board Certified Radiologist. This report was verified electronically.
[2017-08-23 17:09] LABS: ANA SCREEN NEG (NEG)
[2017-08-23] MEDS: glipiZIDE 5 MG TAB PO SCH (18:48)
[2017-08-23] MEDS: LATANOPROST 0.005% OPHT SOLN 2.5 ML BTL EACH EYE SCH (20:37)
[2017-08-23 21:55] LABS: ALB/GLOB RATIO (SPE) 0.98 (1.39-2.23)
[2017-08-24] VITALS (29 sets, daily range): BP systolic 144–177; BP diastolic 77–94; PULSE 65–94; RESP 16–18; TEMP 97.5–98.7; O2SAT 96–99
[2017-08-24 07:05] LABS: BICARBONATE 23.8 MEQ/L (21.0-32.0); CALCIUM 9.2 MG/DL (8.5-10.1); CREATININE 1.94 MG/DL (0.60-1.30)
[2017-08-24] MEDS: INSULIN ASPART SUPPLEMENTAL SCALE SQ SCH ×4 (08:00→20:22)
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
[2017-08-24] MEDS: TIMOLOL MALEATE 0.5% OPHT SOLN 5 ML BTL EACH EYE SCH (09:00)
[2017-08-24] MEDS: hydrALAZINE HCL 50 MG TAB PO SCH ×3 (09:16→17:30)
[2017-08-24] MEDS: METOPROLOL TARTRATE 25 MG TAB PO SCH ×2 (09:16→20:26)
[2017-08-24] MEDS: NIFEdipine 60 MG SUSTAINED RELEASE TAB PO SCH ×2 (09:16→20:25)
[2017-08-24] MEDS: glipiZIDE 10 MG TAB PO SCH (09:16)
[2017-08-24] MEDS: DIVALPROEX SODIUM DELAYED RELEASE 250 MG TAB PO SCH ×3 (09:16→17:30)
--- NOTE | 2017-08-24 12:35 | HHI.NPPN ---
Subjective History of Present Illness 61 Year old male with Diabetes, HTN and Proteinuria 12 grams Review of Systems General Constitutional: Fatigue Objective Data Data Vital Signs Date Time Temp Pulse Resp B/P (MAP) Pulse Ox O2 Delivery O2 Flow Rate FiO2 08/24/17 08:38 94 08/24/17 08:00 98.4 92 18 170/94 (119) 99 08/24/17 08:00 Room Air 08/24/17 06:00 94 08/24/17 05:01 94 08/24/17 04:57 98.6 91 18 177/90 (119) 97 08/24/17 04:07 88 08/24/17 02:04 84 08/24/17 01:01 80 08/24/17 00:43 98.7 79 16 170/83 (112) 96 08/24/17 00:01 78 08/23/17 23:04 81 08/23/17 22:02 81 08/23/17 21:48 159/85 (109) 08/23/17 21:04 87 08/23/17 20:36 94 184/87 (119) 08/23/17 20:32 99.0 94 18 195/90 (125) 97 08/23/17 20:03 91 08/23/17 19:02 91 08/23/17 19:00 Room Air 08/23/17 15:18 98.4 81 16 164/91 (115) 98 08/23/17 14:50 73 18 163/87 (112) 98 08/23/17 14:20 75 18 167/92 (117) 98 08/23/17 13:50 77 18 151/86 (107) 99 08/23/17 13:20 73 18 157/86 (109) 98 08/23/17 12:50 73 18 163/86 (111) 98 08/23/17 12:35 97.6 71 18 159/88 (111) 98 -: 08/23/17 1430 08/24/17 0557 Physical Exam General Appearance: Well Developed, Well Nourished Eyes Eye Exam: Pupils Equal Neck Neck Exam: Neck Supple Pulmonary Resp Exam: Clear Bilaterally, Breath Sounds Equal Cardiology CV Exam: Regular, Normal Sinus Rhythm, Good Perfusion Gastrointestinal/Abdomen GI Exam: Soft, Non-Tender, Bowel Sounds Present Extremeties Extremities Exam: Moderate Edema Assessment/Plan Problem List: (1) Protein in urine ICD Codes: R80.9 - Proteinuria, unspecified Plan: He could have a hyperfiltration injury like FSGS Other possibility is underlying diabetic kidney disease along with hypertensive nephrosclerosis SCOTT, C3-C4 normal . pending ANCA hepatitis screen check for SPEP Biopsy done he has single kidney await results can be followed as our pt d/w Dr. 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
[2017-08-24] MEDS: cloNIDine HCL 0.2 MG TAB PO SCH ×2 (13:33→22:05)
[2017-08-24 17:27] LABS: METANEPHRINE 24 154 mcg/24 h; METANEPHRINE 24 COLLECTION DUR 24 h; NORMETANEPHRINE 24 819 mcg/24 h; TOTAL METANEPHRINE 973 mcg/24 h; URINE TOTAL VOLUME 3200 mL
[2017-08-24] MEDS: glipiZIDE 5 MG TAB PO SCH (17:30)
[2017-08-24] MEDS: LATANOPROST 0.005% OPHT SOLN 2.5 ML BTL EACH EYE SCH (20:25)
[2017-08-24] MEDS: traMADol HCL 50 MG TAB PO PRN (22:05)
[2017-08-25] VITALS (10 sets, daily range): BP systolic 119–150; BP diastolic 66–80; PULSE 65–79; RESP 16–18; TEMP 97.7–98; O2SAT 95–99
[2017-08-25] MEDS: cloNIDine HCL 0.2 MG TAB PO SCH (05:07)
[2017-08-25] MEDS: INSULIN ASPART SUPPLEMENTAL SCALE SQ SCH (08:00)
[2017-08-25] MEDS: DIVALPROEX SODIUM DELAYED RELEASE 250 MG TAB PO SCH (08:22)
[2017-08-25] MEDS: glipiZIDE 10 MG TAB PO SCH (08:22)
[2017-08-25] MEDS: NIFEdipine 60 MG SUSTAINED RELEASE TAB PO SCH (08:22)
[2017-08-25] MEDS: hydrALAZINE HCL 50 MG TAB PO SCH (08:22)
[2017-08-25] MEDS: METOPROLOL TARTRATE 25 MG TAB PO SCH (08:23)
[2017-08-25] MEDS: TIMOLOL MALEATE 0.5% OPHT SOLN 5 ML BTL EACH EYE SCH (08:23)
[2017-08-25] MEDS ORDERED: CLON.2 PO (08:31)
[2017-08-25] MEDS ORDERED: METO25TA3 PO (08:31)
[2017-08-25] MEDS ORDERED: HYDR-3800 PO (08:31)
--- NOTE | 2017-08-25 08:32 | HHI.DCPOC ---
Discharge Care Plan Diagnosis: (1) Hypertension (2) Acute renal failure superimposed on stage 3 chronic kidney disease (3) Protein in urine Goals to Promote Your Health * To prevent worsening of your condition and complications * To maintain your health at the optimal level Directions to Meet Your Goals Take your medications as prescribed Follow your dietary instruction Follow activity as directed Keep your appointments as scheduled Take your immunizations and boosters as scheduled If your symptoms worsen call your PCP, if no PCP go to Urgent Care Center or Emergency Room Smoking is Dangerous to Your Health. Avoid second hand smoke Call the 24-hour hour crisis hotline for domestic abuse at Lincoln Lopez MD Aug 25, 2017 08:32
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
[2017-08-25 23:51] LABS: ALDOSTERONE URINE 2.6 (2.3-21.0); CREATININE ALDOSTERONE 24HR 1.94 g/24 h (0.63-2.50)
== END 2017-08-25 10:25 | disposition home or self-care (01) | DRG 683 ==
LOC: NEPC 22:05 → NEDA 08-17 03:15 → HCIS 08-17 04:32 → OBSVTOIN 08-19 10:04 → HCIN 08-23 11:15
PROVIDERS: ADMIT Hospitalist; ATTEND Hospitalist
PROC: 0TB43ZX Excision of Left Kidney Pelvis, Percutaneous Approach, Diagnostic (ICD-10-PCS; principal; 2017-08-23)
DX: I12.9 Hypertensive chronic kidney disease with stage 1 through stage 4 chronic kidney disease, or unspecified chronic kidney disease (principal); N17.9 Acute kidney failure, unspecified; E11.21 Type 2 diabetes mellitus with diabetic nephropathy; N18.3 Chronic kidney disease, stage 3 (moderate); E87.5 Hyperkalemia; E11.22 Type 2 diabetes mellitus with diabetic chronic kidney disease; I45.10 Unspecified right bundle-branch block; H40.9 Unspecified glaucoma; G40.909 Epilepsy, unspecified, not intractable, without status epilepticus; E78.5 Hyperlipidemia, unspecified; D63.8 Anemia in other chronic diseases classified elsewhere; Z90.5 Acquired absence of kidney; Z87.820 Personal history of traumatic brain injury
CPT/HCPCS: 50200; 70450; 71045; 77012; 80048; 80053; 80061; 80074; 80164; 81001; 82088; 82384; 82550; 82552; 82948; 83036; 83735; 83835; 84157; 84165; 84244; 84484; 85014; 85018; 85025; 85576; 85610; 85730; 86021; 86038; 86160; 93005; 93306; 93975; 96372; 96374; 99285; A9577; C8900; G0378; G8987-GP; G8988-GP; J0360; J1815; J2250; J3010

== ENCOUNTER 2017-09-15 09:34 | Emergency (ER) | payer OTHER ==
[~2017-09-15] VITALS: Ht 175.3 cm; Wt 90.5 kg
[~2017-09-15 09:34] MED LIST changes: +CLON.2 PO; -CLON0.1T PO; -HYDR-3799 PO; +HYDR-3800 PO; -LOSA100T PO; -METF850T PO; +METO25TA3 PO; +NIFE60TA8 PO
[2017-09-15 09:37] VITALS: BP 164/88; PULSE 73; RESP 18; TEMP 98.6; O2SAT 95
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
[2017-09-15] MEDS ORDERED: TRAM50TA PO (09:57)
[2017-09-15] MEDS ORDERED: CEPH-460 PO (09:57)
[2017-09-15] MEDS ORDERED: MAGICADU2 SWISH-SPIT (09:57)
[2017-09-15] MEDS ORDERED: traMADol HCL 50 MG TAB PO ONE (10:00)
[2017-09-15] MEDS ORDERED: CEPHALEXIN MONOHYDRATE 500 MG CAP PO ONE (10:00)
== END 2017-09-15 10:42 | disposition home or self-care (01) ==
LOC: NEPD 09:34
DX: K04.7 Periapical abscess without sinus (principal); R68.84 Jaw pain; I10 Essential (primary) hypertension; E11.9 Type 2 diabetes mellitus without complications
CPT/HCPCS: 99283

== ENCOUNTER 2017-09-16 22:23 | Inpatient (IN) | payer OTHER ==
[~2017-09-16] VITALS: Ht 175.3 cm; Wt 81.7 kg
[~2017-09-16 22:23] MED LIST changes: +CEPH-460 PO; +MAGICADU2 SWISH-SPIT; +TRAM50TA PO
[2017-09-16 22:30] VITALS: O2SAT 98
[2017-09-16 22:32] VITALS: BP 194/89; PULSE 90; RESP 28; TEMP 99.5; O2SAT 93
[2017-09-16 22:37] VITALS: BP 175/81; PULSE 88; RESP 22; O2SAT 92
[2017-09-16] MEDS ORDERED: FUROSEMIDE 40 MG/4 ML VIAL IV PUSH ONE (22:45)
[2017-09-16] MEDS ORDERED: NITROGLYCERIN-D5W 50 MG/250 ML 250 ML IV PRN ×2 (22:45)
[2017-09-16] MEDS ORDERED: NITROGLYCERIN 0.4 MG SL 25 TABS/BTL SL ONE (22:45)
[2017-09-16 22:53] VITALS: O2SAT 98
[2017-09-16 23:06] LABS: AUTOMATED NEUTROPHIL # 12.7 TH/MM3 (1.8-7.7); BASOPHIL # 0.1 TH/MM3 (0-0.2); BASOPHIL % 0.4 % (0.0-2.0); EOSINOPHIL # 0.1 TH/MM3 (0-0.4); HEMATOCRIT 29.3 % (39.0-51.0); HEMOGLOBIN 9.8 GM/DL (13.0-17.0); LYMPH % 5.9 % (9.0-44.0); LYMPHOCYTE # 0.9 TH/MM3 (1.0-4.8); MEAN CELL VOLUME 86.6 FL (80.0-100.0); MEAN CORPUSCULAR HEMOGLOBIN 29.1 PG (27.0-34.0); MEAN CORPUSCULAR HGB CONC 33.6 % (32.0-36.0); MEAN PLATELET VOLUME 8.4 FL (7.0-11.0); MONOCYTE # 1.2 TH/MM3 (0-0.9); NEUT % 84.7 % (16.0-70.0); PLATELET COUNT 184 TH/MM3 (150-450); RED BLOOD COUNT 3.38 MIL/MM3 (4.50-5.90); RED CELL DISTRIBUTION WIDTH 15.3 % (11.6-17.2); WHITE BLOOD COUNT 14.9 TH/MM3 (4.0-11.0)
[2017-09-16 23:22] LABS: ALBUMIN 2.7 GM/DL (3.4-5.0); AST (GOT) 22 U/L (15-37); BICARBONATE 23.4 MEQ/L (21.0-32.0); BLOOD UREA NITROGEN 37 MG/DL (7-18); CALCIUM 9.4 MG/DL (8.5-10.1); CHLORIDE 101 MEQ/L (98-107); CREATININE 2.24 MG/DL (0.60-1.30); GLOMERULAR FILTRATION RATE 30 ML/MIN (>89); GLUCOSE,RANDOM 270 MG/DL (74-106); SODIUM (NA) 136 MEQ/L (136-145)
[2017-09-16 23:23] LABS: ALT (GPT) 38 U/L (12-78)
[2017-09-16 23:27] LABS: ALKALINE PHOSPHATASE 87 U/L (45-117); TOTAL BILIRUBIN ADULT 0.5 MG/DL (0.2-1.0); TROPONIN I LESS THAN 0.02 NG/ML (0.02-0.05)
--- NOTE | 2017-09-16 23:27 | RADRPT ---
EXAM DATE/TIME: 09/16/2017 23:16 [facility] COMPARISON: CHEST SINGLE AP, August 17, 2017, 0:49. INDICATIONS : Shortness of breath MEDICAL HISTORY : None. SURGICAL HISTORY : None. ENCOUNTER: Initial ACUITY: 1 day PAIN SCORE: 7/10 LOCATION: Bilateral chest FINDINGS: There are patchy infiltrates in the right infrahilar and left lower lung and hazy opacity which obscu res the right costophrenic angle. The heart is normal in size. Moderate tortuosity thoracic aorta s imilar to prior. CONCLUSION: Bilateral partially consolidated lower lung infiltrates and probable right effusion. These findings are new when compared to 08/17/17. Remington Harding MD on September 16, 2017 at 23:26 Board Certified Radiologist. This report was verified electronically.
[2017-09-16] MEDS ORDERED: cefTRIAXone INJ 1,000 MG in SODIUM CHLORIDE 0.9% INJ 100 ML IV ONE (23:45)
[2017-09-16] MEDS ORDERED: LEVOFLOXACIN 750 MG PREMIX INJ 150 ML IV ONE (23:45)
[2017-09-16] MEDS ORDERED: AZITHROMYCIN INJ 500 MG in SODIUM CHLOR 0.9% 250 ML INJ 250 ML IV ONE (23:45)
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
[2017-09-16 23:47] VITALS: BP 169/79; PULSE 84; RESP 18; O2SAT 95
[2017-09-17] VITALS (25 sets, daily range): BP systolic 143–183; BP diastolic 71–90; PULSE 74–97; RESP 18–26; TEMP 98–100; O2SAT 92–100
[2017-09-17] MEDS ORDERED: CLINDAMYCIN 600 MG/NS PREMIX 50 ML IV ONE (00:15)
[2017-09-17] MEDS ORDERED: DEXTROSE 50% IN WATER 50 ML VIAL(D50) IV PUSH PRN (00:30)
[2017-09-17] MEDS ORDERED: traMADol HCL 50 MG TAB PO PRN (00:30)
[2017-09-17] MEDS ORDERED: ENOXAPARIN SODIUM 30 MG/0.3 ML SYRINGE SQ SCH (00:30)
[2017-09-17] MEDS ORDERED: GLUCAGON 1 MG/ML VIAL OTHER PRN (00:30)
[2017-09-17] MEDS: cefTRIAXone INJ 1,000 MG in SODIUM CHLORIDE 0.9% INJ 100 ML IV SCH (02:23)
[2017-09-17 07:32] LABS: AUTOMATED NEUTROPHIL # 7.5 TH/MM3 (1.8-7.7); BASOPHIL % 0.5 % (0.0-2.0); EOSINOPHIL # 0.1 TH/MM3 (0-0.4); EOSINOPHIL % 1.2 % (0.0-4.0); HEMATOCRIT 27.1 % (39.0-51.0); HEMOGLOBIN 9.5 GM/DL (13.0-17.0); LYMPH % 9.7 % (9.0-44.0); LYMPHOCYTE # 0.9 TH/MM3 (1.0-4.8); MEAN CELL VOLUME 86.9 FL (80.0-100.0); MEAN CORPUSCULAR HEMOGLOBIN 30.4 PG (27.0-34.0); MEAN CORPUSCULAR HGB CONC 34.9 % (32.0-36.0); MEAN PLATELET VOLUME 8.5 FL (7.0-11.0); MONO % 10.8 % (0.0-8.0); NEUT % 77.8 % (16.0-70.0); PLATELET COUNT 151 TH/MM3 (150-450); RED BLOOD COUNT 3.12 MIL/MM3 (4.50-5.90); WHITE BLOOD COUNT 9.7 TH/MM3 (4.0-11.0)
[2017-09-17 07:46] LABS: BICARBONATE 26.7 MEQ/L (21.0-32.0); BLOOD UREA NITROGEN 34 MG/DL (7-18); CALCIUM 9.5 MG/DL (8.5-10.1); CHLORIDE 101 MEQ/L (98-107); CREATININE 1.98 MG/DL (0.60-1.30); GLOMERULAR FILTRATION RATE 34 ML/MIN (>89); GLUCOSE,RANDOM 173 MG/DL (74-106); SODIUM (NA) 137 MEQ/L (136-145)
[2017-09-17 07:51] LABS: TROPONIN I LESS THAN 0.02 NG/ML (0.02-0.05)
[2017-09-17] MEDS: METOPROLOL TARTRATE 50 MG TAB PO SCH ×2 (08:26→21:16)
[2017-09-17] MEDS: hydrALAZINE HCL 50 MG TAB PO SCH ×3 (08:26→21:17)
[2017-09-17] MEDS: INSULIN ASPART SUPPLEMENTAL SCALE SQ SCH ×4 (08:38→23:17)
[2017-09-17] MEDS: DIVALPROEX SODIUM DELAYED RELEASE 250 MG TAB PO SCH ×3 (08:57→15:36)
[2017-09-17] MEDS ORDERED: FUROSEMIDE 40 MG/4 ML VIAL IV PUSH SCH ×2 (09:00→18:00)
[2017-09-17] MEDS ORDERED: NIFEdipine 60 MG SUSTAINED RELEASE TAB PO SCH (09:00)
--- NOTE | 2017-09-17 09:33 | RADRPT ---
EXAM DATE/TIME: 09/17/2017 09:11 [facility] COMPARISON: CHEST SINGLE AP, September 16, 2017, 23:16. INDICATIONS : Short of breath. MEDICAL HISTORY : Hypertension. Diabetes mellitus type II. SURGICAL HISTORY : None. ENCOUNTER: Initial ACUITY: 2 days PAIN SCORE: 0/10 LOCATION: Bilateral chest FINDINGS: Improvement in the appearance of the chest with less airspace disease in both lungs. Heart is minima lly enlarged. The vascularity is normal. CONCLUSION: Improvement with less airspace disease. No significant failure. Ryan Goodman MD FACR on September 17, 2017 at 9:32 Board Certified Radiologist. This report was verified electronically.
[2017-09-17] MEDS ORDERED: FUROSEMIDE 100 MG/10 ML VIAL IV PUSH SCH (10:00)
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
[2017-09-17] MEDS: LISINOPRIL 20 MG TAB PO SCH (13:15)
[2017-09-17] MEDS: NIFEdipine 90 MG SUSTAINED RELEASE TAB PO SCH ×2 (13:16→21:16)
[2017-09-17] MEDS ORDERED: cloNIDine HCL 0.2 MG TAB PO SCH (14:00)
--- NOTE | 2017-09-17 14:26 | ECHRPT ---
Indication: HEART FAILURE CONCLUSIONS The left ventricular systolic function is hyperdynamic with an estimated ejection fraction in the ra nge of 65- 70%. Normal left ventricular size. Wall thickness is measured at the upper limits of normal. No regional wall motion abnormalities are present. Trace mitral valve regurgitation. There is trace tricuspid valve regurgitation. The estimated pulmonary arterial pressure is 35.4 mmHg. Trivial pulmonary valve regurgitation. BP: 180 / 79 HR: 63 Rhythm: Sinus MEASUREMENTS (Male / Female) Normal Values Technical Quality:Fair 2D ECHO LV Diastolic Diameter PLAX 4.4 cm 4.2 - 5.9 / 3.9 - 5.3 cm LV Systolic Diameter PLAX 2.9 cm IVS Diastolic Thickness 1.1 cm 0.6 - 1.0 / 0.6 - 0.9 cm LVPW Diastolic Thickness 1.2 cm 0.6 - 1.0 / 0.6 - 0.9 cm LV Relative Wall Thickness 0.5 RV Internal Dim ED PLAX 2.9 cm LVOT Diameter 2.2 cm M-MODE Aortic Root Diameter MM 3.6 cm LA Systolic Diameter MM 3.3 cm LA Ao Ratio MM 0.9 AV Cusp Separation MM 2.1 cm DOPPLER AV Peak Velocity 186.0 cm/s AV Peak Gradient 13.8 mmHg LVOT Peak Velocity 147.0 cm/s LVOT Peak Gradient 8.6 mmHg AV Area Cont Eq pk 3.0 cm MV Area PHT 4.7 cm Mitral E Point Velocity 125.0 cm/s Mitral A Point Velocity 116.0 cm/s Mitral E to A Ratio 1.1 LV E' Lateral Velocity 9.8 cm/s Mitral E to LV E' Lateral Ratio 12.7 LV E' Septal Velocity 6.1 cm/s Mitral E to LV E' Septal Ratio 20.4 TR Peak Velocity 252.0 cm/s TR Peak Gradient 25.4 mmHg Right Atrial Pressure 10.0 mmHg Pulmonary Artery Systolic Pressu 35.4 mmHg Right Ventricular Systolic Press 35.4 mmHg PV Peak Velocity 103.0 cm/s PV Peak Gradient 4.2 mmHg FINDINGS LEFT VENTRICLE The left ventricular systolic function is hyperdynamic with an estimated ejection fraction in the ra nge of 65- 70%. Normal left ventricular size. Wall thickness is measured at the upper limits of normal. No regional wall motion abnormalities are present. RIGHT VENTRICLE Normal right ventricular size and systolic function. LEFT ATRIUM The left atrial size is normal. RIGHT ATRIUM The right atrial size is normal. ATRIAL SEPTUM Normal atrial septal thickness without atrial level shunting by limited color doppler interrogation. AORTA The aortic root and proximal ascending aorta are normal in size on limited imaging. MITRAL VALVE Structurally normal mitral valve. Trace mitral valve regurgitation. AORTIC VALVE Trileaflet aortic valve. No aortic valve stenosis or regurgitation. TRICUSPID VALVE Structurally normal tricuspid valve. There is trace tricuspid valve regurgitation. The estimated pulmonary arterial pressure is 35.4 mmHg. PULMONARY VALVE Trivial pulmonary valve regurgitation. VESSELS The inferior vena cava is normal in size. PERICARDIUM No pericardial effusion. Armaan Gonzalez MD, FACC, FSCAI (Electronically Signed) Final Date:17 September 2017 14:25
[2017-09-17] MEDS ORDERED: FUROSEMIDE 40 MG/4 ML VIAL ONE (15:27)
--- NOTE | 2017-09-17 18:00 | EKG ---
Date Performed: 09/16/2017 Time Performed: 22:31:24 PTAGE: 61 years EKG: Sinus rhythm POSSIBLE LEFT ATRIAL ENLARGEMENT RIGHT BUNDLE BRANCH BLOCK ABNORMAL ECG INTERPRETATION BASED ON A DE FAULT AGE OF 40 YEARS PREVIOUS TRACING : 08/17/2017 02.18 Since the prior tracing, there has been no significan t change DOCTOR: Nereu Shelton Interpretating Date/Time 09/17/2017 17:58:46
[2017-09-17] MEDS: ENOXAPARIN SODIUM 40 MG/0.4 ML SYRINGE SQ SCH (21:18)
[2017-09-18] VITALS (29 sets, daily range): BP systolic 132–173; BP diastolic 63–79; PULSE 74–93; RESP 18–20; TEMP 99.2–101.4; O2SAT 94–96
[2017-09-18] MEDS: cefTRIAXone INJ 1,000 MG in SODIUM CHLORIDE 0.9% INJ 100 ML IV SCH (01:57)
[2017-09-18 07:17] LABS: AUTOMATED NEUTROPHIL # 7.4 TH/MM3 (1.8-7.7); BASOPHIL % 0.5 % (0.0-2.0); EOSINOPHIL # 0.2 TH/MM3 (0-0.4); EOSINOPHIL % 2.3 % (0.0-4.0); HEMATOCRIT 28.2 % (39.0-51.0); HEMOGLOBIN 9.8 GM/DL (13.0-17.0); LYMPHOCYTE # 1.3 TH/MM3 (1.0-4.8); MEAN CELL VOLUME 86.2 FL (80.0-100.0); MEAN CORPUSCULAR HEMOGLOBIN 29.9 PG (27.0-34.0); MEAN CORPUSCULAR HGB CONC 34.7 % (32.0-36.0); MEAN PLATELET VOLUME 8.4 FL (7.0-11.0); MONO % 10.2 % (0.0-8.0); PLATELET COUNT 171 TH/MM3 (150-450); RED BLOOD COUNT 3.27 MIL/MM3 (4.50-5.90)
[2017-09-18 07:40] LABS: BICARBONATE 27.7 MEQ/L (21.0-32.0); CALCIUM 8.9 MG/DL (8.5-10.1); CREATININE 2.05 MG/DL (0.60-1.30)
[2017-09-18] MEDS: INSULIN ASPART SUPPLEMENTAL SCALE SQ SCH ×4 (08:00→21:26)
[2017-09-18] MEDS: hydrALAZINE HCL 50 MG TAB PO SCH ×3 (09:03→21:24)
[2017-09-18] MEDS: METOPROLOL TARTRATE 50 MG TAB PO SCH ×2 (09:03→21:24)
[2017-09-18] MEDS: DIVALPROEX SODIUM DELAYED RELEASE 250 MG TAB PO SCH ×3 (09:03→17:48)
[2017-09-18] MEDS: NIFEdipine 90 MG SUSTAINED RELEASE TAB PO SCH (09:03)
[2017-09-18] MEDS: LISINOPRIL 20 MG TAB PO SCH (09:04)
--- NOTE | 2017-09-18 09:34 | RADRPT ---
EXAM DATE/TIME: 09/18/2017 09:14 [facility] COMPARISON: CHEST SINGLE AP, September 17, 2017, 9:11. INDICATIONS : Shortness of breath. MEDICAL HISTORY : Hypertension. Diabetes mellitus type II. SURGICAL HISTORY : None. ENCOUNTER: Subsequent ACUITY: 3 days PAIN SCORE: 0/10 LOCATION: Bilateral chest FINDINGS: PA and lateral views of the chest demonstrate a small infiltrate the right lung base and blunting of the right costophrenic angle a combination of atelectasis and a small effusion. Difficult to rule out a small right lower lobe pneumonia The cardiomediastinal contours are unremarkable. Osseous structu res are intact. CONCLUSION: Area of consolidation in the right lung base with blunting of the costophrenic angle a possible pleur al effusion and atelectasis or small right lower lobe pneumonia. Diego Castillo MD on September 18, 2017 at 9:32 Board Certified Radiologist. This report was verified electronically.
--- NOTE | 2017-09-18 09:57 | PD.CARD.PN ---
Subjective Subjective Remarks feels better. Dyspnea resolved Objective Medications Current Medications Medications (Trade) Dose Ordered Sig/Jay Route Start Time Stop Time Status Last Admin Ceftriaxone Sodium 1000 mg/ Sodium Chloride 100 ml @ 200 mls/hr Q24H IV 09/17/17 01:00 09/18/17 01:57 (D50w (Vial) Inj) 50 ml UNSCH PRN IV PUSH 09/17/17 00:30 (Glucagon Inj) 1 mg UNSCH PRN OTHER 09/17/17 00:30 (NovoLOG SUPPLEMENTAL SCALE) 1 ACHS SLIDING SCALE SQ 09/17/17 08:00 09/17/17 23:17 (Depak[address] Dr) 250 mg TID PO 09/17/17 09:00 09/18/17 09:03 (Apresoline) 100 mg DAILY@0900,1400,2100 PO 09/17/17 09:00 09/18/17 09:03 (Lopressor) 50 mg Q12HR PO 09/17/17 09:00 09/18/17 09:03 (Ultram) 50 mg Q6H PRN PO 09/17/17 00:30 09/17/17 15:39 (Procardia Xl) 90 mg Q12HR PO 09/17/17 10:00 09/18/17 09:03 (Prinivil) 20 mg DAILY PO 09/17/17 09:00 09/18/17 09:04 (Lasix Inj) 40 mg BID@09,18 IV PUSH 09/17/17 18:00 09/17/17 15:32 (Lovenox Inj) 40 mg Q24H SQ 09/17/17 22:00 09/17/17 21:18 Vital Signs / I&O Vital Signs Date Time Temp Pulse Resp B/P (MAP) Pulse Ox O2 Delivery O2 Flow Rate FiO2 09/18/17 08:54 99.2 93 19 173/76 (108) 95 09/18/17 06:00 83 09/18/17 05:02 82 09/18/17 04:03 83 09/18/17 03:00 94 Nasal Cannula 4.00 09/18/17 03:00 99.9 81 18 132/69 (90) 94 09/18/17 03:00 82 09/18/17 02:04 80 09/18/17 01:00 78 09/18/17 00:00 78 09/17/17 23:22 100.0 78 20 143/71 (95) 94 09/17/17 23:00 94 Nasal Cannula 4.00 09/17/17 23:00 77 09/17/17 22:00 80 09/17/17 21:00 88 09/17/17 20:00 94 09/17/17 19:15 93 Nasal Cannula 4.00 09/17/17 19:00 98.4 92 20 170/83 (112) 95 09/17/17 19:00 90 09/17/17 17:58 170/82 09/17/17 16:39 18 09/17/17 16:09 92 09/17/17 16:00 92 Nasal Cannula 4.00 09/17/17 15:41 98.0 97 20 183/90 (121) 92 09/17/17 13:02 09/17/17 12:59 81 18 165/79 (107) 92 09/17/17 10:54 167/88 (114) I/O 09/17/17 09/17/17 09/17/17 09/18/17 09/18/17 09/18/17 07:00 15:00 23:00 07:00 15:00 23:00 Intake Total 340 ml 480 ml Output Total 851 ml 1675 ml Balance -511 ml -1195 ml Intake Oral 240 ml 480 ml IV Total 100 ml Output Urine Total 850 ml 1675 ml Stool Total 1 ml # Voids 1 Physical Exam RRR no murmur lungs clear Laboratory Laboratory Tests Test 09/17/17 10:12 09/18/17 06:27 Blood Gas Puncture Site RT RADIAL Blood Gas Patient Temperature 98.6 Blood Gas HCO3 27 mmol/L Blood Gas Base Excess 3.0 mmol/L Blood Gas Oxygen Saturation 91 % Arterial Blood pH 7.45 Arterial Blood Partial Pressure CO2 39 mmHg Arterial Blood Partial Pressure O2 69 mmHg Arterial Blood Oxygen Content 15.3 Vol % Arterial Blood Carboxyhemoglobin 1.0 % Arterial Blood Methemoglobin 1.6 % Blood Gas Hemoglobin 12.0 G/DL Oxygen Delivery Device NASAL CANNULA Blood Gas Liter Flow 4 L/M White Blood Count 10.0 TH/MM3 Red Blood Count 3.27 MIL/MM3 Hemoglobin 9.8 GM/DL Hematocrit 28.2 % Mean Corpuscular Volume 86.2 FL Mean Corpuscular Hemoglobin 29.9 PG Mean Corpuscular Hemoglobin Concent 34.7 % Red Cell Distribution Width 15.0 % Platelet Count 171 TH/MM3 Mean Platelet Volume 8.4 FL Neutrophils (%) (Auto) 74.0 % Lymphocytes (%) (Auto) 13.0 % Monocytes (%) (Auto) 10.2 % Eosinophils (%) (Auto) 2.3 % Basophils (%) (Auto) 0.5 % Neutrophils # (Auto) 7.4 TH/MM3 Lymphocytes # (Auto) 1.3 TH/MM3 Monocytes # (Auto) 1.0 TH/MM3 Eosinophils # (Auto) 0.2 TH/MM3 Basophils # (Auto) 0.0 TH/MM3 CBC Comment DIFF FINAL Differential Comment Blood Urea Nitrogen 38 MG/DL Creatinine 2.05 MG/DL Random Glucose 147 MG/DL Calcium Level 8.9 MG/DL Magnesium Level 2.0 MG/DL Sodium Level 141 MEQ/L Potassium Level 3.6 MEQ/L Chloride Level 105 MEQ/L Carbon Dioxide Level 27.7 MEQ/L Anion Gap 8 MEQ/L Estimat Glomerular Filtration Rate 33 ML/MIN B-Type Natriuretic Peptide 222 PG/ML Imaging Last 24 hours Impressions Chest X-Ray 09/18/17 0600 Signed Impressions: Service Date/Time: Monday, September 18, 2017 09:14 - CONCLUSION: Area of consolidation in the right lung base with blunting of the costophrenic angle a possible pleural effusion and atelectasis or small right lower lobe pneumonia. Diego Castillo MD Assessment and Plan Assessment and Plan Will decrease lasix. BMP in AM. Increase activity Joaquim Mckeon MD Sep 18, 2017 09:57
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
[2017-09-18] MEDS: ACETAMINOPHEN 325 MG TAB PO PRN (17:48)
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
[2017-09-18] MEDS: DILTIAZEM-CD 240 MG CAP ER PO SCH (21:24)
[2017-09-18] MEDS: ENOXAPARIN SODIUM 40 MG/0.4 ML SYRINGE SQ SCH (21:26)
[2017-09-19] VITALS (31 sets, daily range): BP systolic 138–168; BP diastolic 68–77; PULSE 71–100; RESP 16–19; TEMP 98.5–99.9; O2SAT 92–93
[2017-09-19 00:52] LABS: BACTERIA, URINE OCC /hpf; BILIRUBIN, URINE NEG (NEG); BLOOD, URINE TRACE (NEG); GLUCOSE,URINE 1000 mg/dL (NEG); HYALINE CAST, URINE 3 /lpf (RARE); KETONE, URINE NEG (NEG); NITRITE,URINE NEG (NEG); SQUAMOUS EPITHELIAL CELL URINE <1 /hpf (0-5); URINE COLOR YELLOW (YELLW/STRAW); URINE LEUKOCYTE ESTERASE NEG (NEG)
[2017-09-19] MEDS: cefTRIAXone INJ 1,000 MG in SODIUM CHLORIDE 0.9% INJ 100 ML IV SCH (01:07)
[2017-09-19] MEDS: ACETAMINOPHEN 325 MG TAB PO PRN ×2 (04:02→17:47)
--- NOTE | 2017-09-19 08:40 | HHI.NPPN ---
Subjective Interval History Renal function is pending. Medication changes were noted. Non oliguric. Review of Systems General Constitutional: Fatigue Cardiovascular Cardiac: Edema Objective Data Data Vital Signs Date Time Temp Pulse Resp B/P (MAP) Pulse Ox O2 Delivery O2 Flow Rate FiO2 09/19/17 07:54 98.9 89 19 168/75 (106) 93 09/19/17 06:00 82 09/19/17 05:00 82 09/19/17 04:00 84 09/19/17 03:56 99.1 72 16 147/68 (94) 93 09/19/17 03:56 93 Nasal Cannula 3.00 09/19/17 03:00 83 09/19/17 02:00 80 09/19/17 01:00 76 09/19/17 00:05 98.5 78 16 144/77 (99) 93 09/19/17 00:05 93 Nasal Cannula 3.00 09/19/17 00:00 78 09/18/17 23:00 80 09/18/17 22:00 86 09/18/17 21:00 88 09/18/17 20:03 21 09/18/17 20:00 92 09/18/17 19:30 94 Nasal Cannula 4.00 09/18/17 19:30 99.5 90 20 143/63 (89) 94 09/18/17 19:00 91 09/18/17 17:26 101.4 09/18/17 17:07 92 09/18/17 16:00 92 09/18/17 15:40 94 Room Air 09/18/17 15:38 100.5 92 19 166/78 (107) 94 09/18/17 15:00 90 09/18/17 14:33 169/76 (107) 09/18/17 14:30 93 Room Air 09/18/17 14:00 86 09/18/17 13:00 84 09/18/17 12:15 Nasal Cannula 2.00 09/18/17 12:00 74 09/18/17 11:30 99.2 75 19 157/79 (105) 96 09/18/17 11:00 82 09/18/17 10:00 80 09/18/17 09:00 90 09/18/17 08:54 99.2 93 19 173/76 (108) 95 09/18/17 08:45 96 4.00 -: 3/3/18 0627 09/18/17 06 Physical Exam General Appearance: Well Developed, No Acute Distress Pulmonary Resp Exam: Crackles, Rhonchi Cardiology CV Exam: Regular Gastrointestinal/Abdomen GI Exam: Soft, Non-Tender, Bowel Sounds Present Musculoskeletal MS Exam: Joints Intact Extremeties Extremities Exam: Moderate Edema, Pitting Edema Neurologic Neuro Exam: Alert, Awake, Moving All Extremities Assessment/Plan Problem List: (1) Acute renal failure superimposed on stage 3 chronic kidney disease ICD Codes: N17.9 - Acute kidney failure, unspecified; N18.3 - Chronic kidney disease, stage 3 (moderate) Status: Acute Plan: He has biopsy proven diabetic nephropathy. No further workup is necessary. He should be on WENDY inhibitor/ARB. He is already on Lisinopril, but reports that it causes cough. Changed to ARB now on Losartan. If renal function is stable, increase the dose. Continue Lasix. (2) CHF (congestive heart failure) ICD Codes: I50.9 - Heart failure, unspecified Status: Acute Plan: Cardiology following. Likely has diastolic heart failure. (3) Diabetes mellitus ICD Codes: E11.9 - Diabetes mellitus Status: Chronic Plan: continue insulin coverage. (4) Hypertension ICD Codes: I10 - Hypertension Status: Chronic Plan: Increase dose of Losartan as tolerated. Problem Qualifiers (1) CHF (congestive heart failure): Qualified Codes: I50.9 - Heart failure, unspecified Frank Mandujano MD Sep 19, 2017 08:40
[2017-09-19] MEDS: DIVALPROEX SODIUM DELAYED RELEASE 250 MG TAB PO SCH ×3 (08:48→17:48)
[2017-09-19] MEDS: METOPROLOL TARTRATE 50 MG TAB PO SCH ×2 (08:48→21:26)
[2017-09-19] MEDS: DILTIAZEM-CD 240 MG CAP ER PO SCH ×2 (08:48→21:25)
[2017-09-19] MEDS: INSULIN ASPART SUPPLEMENTAL SCALE SQ SCH ×4 (08:49→21:31)
[2017-09-19] MEDS: hydrALAZINE HCL 50 MG TAB PO SCH ×3 (08:53→21:30)
[2017-09-19 08:58] LABS: BICARBONATE 25.3 MEQ/L (21.0-32.0); CREATININE 2.5 MG/DL (0.60-1.30)
[2017-09-19] MEDS ORDERED: LOSARTAN 50 MG TAB PO SCH (09:00)
[2017-09-19] MEDS ORDERED: FUROSEMIDE 40 MG TAB PO SCH (09:00)
--- NOTE | 2017-09-19 09:27 | PD.CARD.PN ---
Subjective Subjective Remarks feels better. Dyspnea resolved Objective Medications Current Medications Medications (Trade) Dose Ordered Sig/Jay Route Start Time Stop Time Status Last Admin Ceftriaxone Sodium 1000 mg/ Sodium Chloride 100 ml @ 200 mls/hr Q24H IV 09/17/17 01:00 09/19/17 01:07 (D50w (Vial) Inj) 50 ml UNSCH PRN IV PUSH 09/17/17 00:30 (Glucagon Inj) 1 mg UNSCH PRN OTHER 09/17/17 00:30 (NovoLOG SUPPLEMENTAL SCALE) 1 ACHS SLIDING SCALE SQ 09/17/17 08:00 09/19/17 08:49 (Depakote Dr) 250 mg TID PO 09/17/17 09:00 09/19/17 08:48 (Apresoline) 100 mg DAILY@0900,1400,2100 PO 09/17/17 09:00 09/19/17 08:53 (Lopressor) 50 mg Q12HR PO 09/17/17 09:00 09/19/17 08:48 (Ultram) 50 mg Q6H PRN PO 09/17/17 00:30 09/17/17 15:39 (Lovenox Inj) 40 mg Q24H SQ 09/17/17 22:00 09/18/17 21:26 (Lasix) 40 mg DAILY PO 09/19/17 09:00 09/19/17 08:48 (Tylenol) 650 mg Q4H PRN PO 09/18/17 17:30 09/19/17 04:02 (Cardizem Cd) 240 mg BID PO 09/18/17 21:00 09/19/17 08:48 (Cozaar) 50 mg DAILY PO 09/19/17 09:00 09/19/17 08:49 Vital Signs / I&O Vital Signs Date Time Temp Pulse Resp B/P (MAP) Pulse Ox O2 Delivery O2 Flow Rate FiO2 09/19/17 07:54 98.9 89 19 168/75 (106) 93 09/19/17 06:00 82 09/19/17 05:00 82 09/19/17 04:00 84 09/19/17 03:56 99.1 72 16 147/68 (94) 93 09/19/17 03:56 93 Nasal Cannula 3.00 09/19/17 03:00 83 09/19/17 02:00 80 3/4/18 01:00 76 09/19/17 00:05 98.5 78 16 144/77 (99) 93 09/19/17 00:05 93 Nasal Cannula 3.00 09/19/17 00:00 78 09/18/17 23:00 80 09/18/17 22:00 86 09/18/17 21:00 88 09/18/17 20:03 21 09/18/17 20:00 92 09/18/17 19:30 94 Nasal Cannula 4.00 09/18/17 19:30 99.5 90 20 143/63 (89) 94 09/18/17 19:00 91 09/18/17 17:26 101.4 09/18/17 17:07 92 09/18/17 16:00 92 09/18/17 15:40 94 Room Air 09/18/17 15:38 100.5 92 19 166/78 (107) 94 09/18/17 15:00 90 09/18/17 14:33 169/76 (107) 09/18/17 14:30 93 Room Air 09/18/17 14:00 86 09/18/17 13:00 84 09/18/17 12:15 Nasal Cannula 2.00 09/18/17 12:00 74 09/18/17 11:30 99.2 75 19 157/79 (105) 96 09/18/17 11:00 82 09/18/17 10:00 80 I/O 09/18/17 09/18/17 09/18/17 09/19/17 09/19/17 09/19/17 07:00 15:00 23:00 07:00 15:00 23:00 Intake Total 480 ml 721 ml 240 ml Output Total 1675 ml 650 ml 400 ml Balance -1195 ml 71 ml -160 ml Intake Oral 480 ml 721 ml 240 ml Output Urine Total 1675 ml 650 ml 400 ml # Bowel Movements 1 0 Physical Exam RRR no murmur lungs clear Laboratory Laboratory Tests Test 09/18/17 23:00 09/19/17 07:23 Urine Color YELLOW Urine Turbidity CLEAR Urine pH 6.0 Urine Specific [place] 1.015 Urine Protein 300 mg/dL Urine Glucose (UA) 1000 mg/dL Urine Ketones NEG mg/dL Urine Occult Blood TRACE Urine Nitrite NEG Urine Bilirubin NEG Urine Urobilinogen LESS THAN 2.0 MG/DL Urine Leukocyte Esterase NEG Urine RBC 3 /hpf Urine WBC 1 /hpf Urine Squamous Epithelial Cells <1 /hpf Urine Bacteria OCC /hpf Urine Hyaline Casts 3 /lpf Microscopic Urinalysis Comment CULT NOT INDICATED Blood Urea Nitrogen 48 MG/DL Creatinine 2.50 MG/DL Random Glucose 247 MG/DL Calcium Level 9.0 MG/DL Sodium Level 140 MEQ/L Potassium Level 4.1 MEQ/L Chloride Level 103 MEQ/L Carbon Dioxide Level 25.3 MEQ/L Anion Gap 12 MEQ/L Estimat Glomerular Filtration Rate 26 ML/MIN Assessment and Plan Assessment and Plan Will decrease lasix. BMP in AM. Increase activity Joaquim Mckeon MD Sep 19, 2017 09:27
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
[2017-09-19] MEDS ORDERED: glipiZIDE 5 MG TAB PO ONE (12:15)
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
[2017-09-19] MEDS: DOXYCYCLINE HYCLATE 100 MG TAB PO SCH ×2 (13:03→21:29)
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
[2017-09-19] MEDS: glipiZIDE 5 MG TAB PO SCH (21:26)
[2017-09-19] MEDS: ENOXAPARIN SODIUM 40 MG/0.4 ML SYRINGE SQ SCH (21:31)
[2017-09-20] VITALS (21 sets, daily range): BP systolic 145–170; BP diastolic 70–76; PULSE 68–90; RESP 16–20; TEMP 98.1–99.3; O2SAT 92–93
[2017-09-20] MEDS: cefTRIAXone INJ 1,000 MG in SODIUM CHLORIDE 0.9% INJ 100 ML IV SCH (00:50)
[2017-09-20 07:57] LABS: BICARBONATE 23.7 MEQ/L (21.0-32.0); CALCIUM 9.1 MG/DL (8.5-10.1); CREATININE 2.71 MG/DL (0.60-1.30)
[2017-09-20] MEDS: INSULIN ASPART SUPPLEMENTAL SCALE SQ SCH ×4 (08:00→21:00)
[2017-09-20] MEDS: LOSARTAN 50 MG TAB PO SCH (08:19)
[2017-09-20] MEDS: METOPROLOL TARTRATE 50 MG TAB PO SCH ×2 (08:19→21:21)
[2017-09-20] MEDS: DILTIAZEM-CD 240 MG CAP ER PO SCH ×2 (08:19→21:21)
[2017-09-20] MEDS: glipiZIDE 5 MG TAB PO SCH (08:19)
[2017-09-20] MEDS: FUROSEMIDE 20 MG TAB PO SCH (08:19)
[2017-09-20] MEDS: DOXYCYCLINE HYCLATE 100 MG TAB PO SCH ×2 (08:19→21:21)
[2017-09-20] MEDS: DIVALPROEX SODIUM DELAYED RELEASE 250 MG TAB PO SCH ×3 (08:44→17:23)
[2017-09-20] MEDS: hydrALAZINE HCL 50 MG TAB PO SCH ×3 (08:44→21:23)
--- NOTE | 2017-09-20 08:49 | PD.CARD.PN ---
Subjective Subjective Remarks No chest pain, shortness of breath, palpitations. Leg swelling is improving. Has been diuresing well. Objective Medications Current Medications Medications (Trade) Dose Ordered Sig/Jay Route Start Time Stop Time Status Last Admin Ceftriaxone Sodium 1000 mg/ Sodium Chloride 100 ml @ 200 mls/hr Q24H IV 09/17/17 01:00 09/20/17 00:50 (D50w (Vial) Inj) 50 ml UNSCH PRN IV PUSH 09/17/17 00:30 (Glucagon Inj) 1 mg UNSCH PRN OTHER 09/17/17 00:30 (NovoLOG SUPPLEMENTAL SCALE) 1 ACHS SLIDING SCALE SQ 09/17/17 08:00 09/20/17 08:00 (Depakote Dr) 250 mg TID PO 09/17/17 09:00 09/19/17 17:48 (Apresoline) 100 mg DAILY@0900,1400,2100 PO 09/17/17 09:00 09/19/17 21:30 (Lopressor) 50 mg Q12HR PO 09/17/17 09:00 09/20/17 08:19 (Ultram) 50 mg Q6H PRN PO 09/17/17 00:30 09/17/17 15:39 (Lovenox Inj) 40 mg Q24H SQ 09/17/17 22:00 09/19/17 21:31 (Tylenol) 650 mg Q4H PRN PO 09/18/17 17:30 09/19/17 17:47 (Cardizem Cd) 240 mg BID PO 09/18/17 21:00 09/20/17 08:19 (Lasix) 20 mg DAILY PO 09/20/17 09:00 09/20/17 08:19 (Cozaar) 100 mg DAILY PO 09/20/17 09:00 09/20/17 08:19 (Vibratab) 100 mg Q12HR PO 09/19/17 10:15 09/20/17 08:19 (Glucotrol) 5 mg BID PO 09/19/17 21:00 09/20/17 08:19 Vital Signs / I&O Vital Signs Date Time Temp Pulse Resp B/P (MAP) Pulse Ox O2 Delivery O2 Flow Rate FiO2 09/20/17 04:56 99.0 76 20 145/70 (95) 93 09/20/17 04:56 93 Nasal Cannula 4.00 09/20/17 03:00 71 09/20/17 02:00 72 09/20/17 01:00 68 09/20/17 00:00 68 09/19/17 23:25 92 Nasal Cannula 3.00 09/19/17 23:25 99.9 71 16 138/69 (92) 92 09/19/17 23:00 72 09/19/17 22:00 82 09/19/17 21:00 100 09/19/17 20:00 86 09/19/17 19:25 98.5 88 16 163/72 (102) 93 09/19/17 19:25 93 Nasal Cannula 3.00 09/19/17 19:00 89 09/19/17 18:00 90 09/19/17 17:00 88 09/19/17 16:05 93 Room Air 09/19/17 16:00 91 09/19/17 15:21 99.2 83 19 150/70 (96) 93 09/19/17 15:00 80 09/19/17 14:00 78 09/19/17 13:00 78 09/19/17 12:05 99.4 78 19 164/77 (106) 92 09/19/17 12:00 92 Room Air 09/19/17 12:00 74 09/19/17 11:00 77 09/19/17 10:00 80 09/19/17 09:00 90 I/O 09/19/17 09/19/17 09/19/17 09/20/17 09/20/17 09/20/17 07:00 15:00 23:00 07:00 15:00 23:00 Intake Total 240 ml 1200 ml 240 ml Output Total 400 ml 1000 ml Balance -160 ml 200 ml 240 ml Intake Oral 240 ml 1200 ml 240 ml Output Urine Total 400 ml 1000 ml # Voids 3 # Bowel Movements 0 0 2 Physical Exam GENERAL: Well-developed well-nourished. In no acute distress. NECK: No carotid bruits. No JVD. CARDIOVASCULAR: Regular rate and rhythm. No murmur appreciated. RESPIRATORY: No accessory muscle use. Clear to auscultation. Mild expiratory wheeze. No crackles. MUSCULOSKELETAL: No clubbing or cyanosis. Trace edema. NEUROLOGICAL: Awake and alert. Normal speech. Laboratory Laboratory Tests Test 09/19/17 13:27 09/20/17 06:28 Procalcitonin 0.43 ng/mL Blood Urea Nitrogen 56 MG/DL Creatinine 2.71 MG/DL Random Glucose 256 MG/DL Calcium Level 9.1 MG/DL Sodium Level 139 MEQ/L Potassium Level 4.0 MEQ/L Chloride Level 102 MEQ/L Carbon Dioxide Level 23.7 MEQ/L Anion Gap 13 MEQ/L Estimat Glomerular Filtration Rate 24 ML/MIN Imaging Last Impressions Lower Extremity Ultrasound 09/19/17 0000 Signed Impressions: Service Date/Time: Tuesday, September 19, 2017 16:06 - CONCLUSION: Normal examination. Juan Calix MD Chest X-Ray 09/18/17 0600 Signed Impressions: Service Date/Time: Monday, September 18, 2017 09:14 - CONCLUSION: Area of consolidation in the right lung base with blunting of the costophrenic angle a possible pleural effusion and atelectasis or small right lower lobe pneumonia. Diego Castillo MD Assessment and Plan Assessment and Plan 61-year-old male with a past medical history of hypertension and type 2 diabetes who presented for shortness of breath and evidence of congestive failure CHF: Diastolic. Echocardiogram with hyperdynamic systolic function, EF 65-70 % , mild valve disease. Creatinine trending up, Lasix decreased to 20 mg daily. Pneumonia/COPD exacerbation, management per primary team. Lewis Love Sep 20, 2017 08:49
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
--- NOTE | 2017-09-20 14:53 | HHI.NPPN ---
Subjective History of Present Illness Mr. Dixon has solitary kidney. He has heavy, nephrotic range proteinuria ( estimated at 12 grams in August). On 08/23/17 he had a renal biopsy which revealed nodular diabetic glomerulopathy, severe interstitial fibrosis and tubular fibrosis. Review of Systems General Constitutional: Fatigue Cardiovascular Cardiac: Edema Objective Data Data Vital Signs Date Time Temp Pulse Resp B/P (MAP) Pulse Ox O2 Delivery O2 Flow Rate FiO2 09/20/17 14:18 70 09/20/17 13:03 72 09/20/17 11:23 95 Room Air 09/20/17 11:23 98.1 75 18 152/76 (101) 09/20/17 11:23 75 09/20/17 10:03 77 09/20/17 09:59 73 09/20/17 08:25 78 09/20/17 07:36 98.9 84 18 153/70 (97) 09/20/17 07:36 82 09/20/17 07:36 94 Room Air 09/20/17 04:56 99.0 76 20 145/70 (95) 93 09/20/17 04:56 93 Nasal Cannula 4.00 09/20/17 03:00 71 09/20/17 02:00 72 09/20/17 01:00 68 09/20/17 00:00 68 09/19/17 23:25 92 Nasal Cannula 3.00 09/19/17 23:25 99.9 71 16 138/69 (92) 92 09/19/17 23:00 72 09/19/17 22:00 82 09/19/17 21:00 100 09/19/17 20:00 86 09/19/17 19:25 98.5 88 16 163/72 (102) 93 09/19/17 19:25 93 Nasal Cannula 3.00 09/19/17 19:00 89 09/19/17 18:00 90 09/19/17 17:00 88 09/19/17 16:05 93 Room Air 09/19/17 16:00 91 09/19/17 15:21 99.2 83 19 150/70 (96) 93 09/19/17 15:00 80 -: 09/18/17 0627 09/20/17 0628 Physical Exam General Appearance: Well Developed, No Acute Distress Pulmonary Resp Exam: Clear Bilaterally Cardiology CV Exam: Regular Gastrointestinal/Abdomen GI Exam: Soft, Non-Tender, Bowel Sounds Present Musculoskeletal MS Exam: Joints Intact Extremeties Extremities Exam: Moderate Edema, Pitting Edema Neurologic Neuro Exam: Alert, Awake, Moving All Extremities Assessment/Plan Problem List: (1) Acute renal failure superimposed on stage 3 chronic kidney disease ICD Codes: N17.9 - Acute kidney failure, unspecified; N18.3 - Chronic kidney disease, stage 3 (moderate) Status: Acute Plan: He has biopsy proven diabetic nephropathy. No further workup is necessary. Cr 2.71 Lasix 20 mg daily follow BMP He is on ARB now on Losartan. If renal function is stable Continue Lasix. (2) CHF (congestive heart failure) ICD Codes: I50.9 - Heart failure, unspecified Status: Acute Plan: Cardiology following. Likely has diastolic heart failure. (3) Diabetes mellitus ICD Codes: E11.9 - Diabetes mellitus Status: Chronic Plan: continue insulin coverage. (4) Hypertension ICD Codes: I10 - Hypertension Status: Chronic Plan: on Losartan as tolerated. Problem Qualifiers (1) CHF (congestive heart failure): Qualified Codes: I50.9 - Heart failure, unspecified Immanuel Kapoor MD Sep 20, 2017 14:53
[2017-09-20] MEDS: glipiZIDE 10 MG TAB PO SCH (17:23)
[2017-09-20] MEDS: ENOXAPARIN SODIUM 30 MG/0.3 ML SYRINGE SQ SCH (21:24)
[2017-09-21] VITALS (22 sets, daily range): BP systolic 143–187; BP diastolic 71–91; PULSE 70–100; RESP 16–20; TEMP 98.4–99.5; O2SAT 92–95
[2017-09-21] MEDS: cefTRIAXone INJ 1,000 MG in SODIUM CHLORIDE 0.9% INJ 100 ML IV SCH (01:08)
[2017-09-21] MEDS ORDERED: methylPREDNISolone SOD SUCC 40 MG/1 ML VIAL IV PUSH SCH (05:00)
[2017-09-21] MEDS ORDERED: RESP: ALBUTEROL 2.5 MG/IPRATROPIUM 0.5 MG NEB (PRN) NEB (05:00)
[2017-09-21 07:09] LABS: BICARBONATE 25.7 MEQ/L (21.0-32.0); CALCIUM 8.8 MG/DL (8.5-10.1); CREATININE 2.34 MG/DL (0.60-1.30)
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
[2017-09-21] MEDS: glipiZIDE 10 MG TAB PO SCH ×2 (08:12→17:40)
[2017-09-21] MEDS: FUROSEMIDE 20 MG TAB PO SCH (08:12)
[2017-09-21] MEDS: DOXYCYCLINE HYCLATE 100 MG TAB PO SCH ×2 (08:12→20:24)
[2017-09-21] MEDS: DILTIAZEM-CD 240 MG CAP ER PO SCH ×2 (08:12→20:24)
[2017-09-21] MEDS: DIVALPROEX SODIUM DELAYED RELEASE 250 MG TAB PO SCH ×3 (08:12→17:40)
[2017-09-21] MEDS: LOSARTAN 50 MG TAB PO SCH (08:13)
[2017-09-21] MEDS: METOPROLOL TARTRATE 50 MG TAB PO SCH ×2 (08:13→20:24)
[2017-09-21] MEDS: INSULIN ASPART SUPPLEMENTAL SCALE SQ SCH ×4 (08:14→21:00)
[2017-09-21] MEDS: hydrALAZINE HCL 50 MG TAB PO SCH ×3 (08:17→20:24)
[2017-09-21] MEDS: RESP: ALBUTEROL 2.5 MG/IPRATROPIUM 0.5 MG NEB (SCH) NEB ×4 (09:40→19:48)
--- NOTE | 2017-09-21 12:02 | HHI.NPPN ---
Subjective History of Present Illness Mr. Dixon has solitary kidney. He has heavy, nephrotic range proteinuria ( estimated at 12 grams in August). On 08/23/17 he had a renal biopsy which revealed nodular diabetic glomerulopathy, severe interstitial fibrosis and tubular fibrosis. Review of Systems General Constitutional: Fatigue Cardiovascular Cardiac: Edema Objective Data Data Vital Signs Date Time Temp Pulse Resp B/P (MAP) Pulse Ox O2 Delivery O2 Flow Rate FiO2 09/21/17 09:35 93 21 09/21/17 08:00 98.8 89 18 169/85 (113) 93 09/21/17 08:00 93 Nasal Cannula 4.00 09/21/17 06:00 85 09/21/17 05:26 95 Nasal Cannula 4.00 09/21/17 05:00 81 09/21/17 04:00 78 09/21/17 03:00 74 09/21/17 03:00 92 Nasal Cannula 4.00 09/21/17 03:00 98.7 74 16 160/77 (104) 92 09/21/17 02:00 77 09/21/17 01:00 75 09/21/17 00:00 70 09/21/17 00:00 99.5 72 16 143/71 (95) 93 09/21/17 00:00 93 Nasal Cannula 3.00 09/20/17 23:00 74 09/20/17 22:00 76 09/20/17 21:00 90 09/20/17 20:00 99.3 88 16 170/74 (106) 92 09/20/17 20:00 86 09/20/17 20:00 92 Room Air 09/20/17 19:00 84 09/20/17 18:23 85 09/20/17 17:13 75 09/20/17 16:00 78 09/20/17 15:59 98.6 79 18 164/76 (105) 09/20/17 15:59 95 Room Air 09/20/17 15:59 79 09/20/17 14:18 70 09/20/17 13:03 72 -: 09/18/17 0627 09/21/17 0511 Physical Exam General Appearance: Well Developed, No Acute Distress Pulmonary Resp Exam: Clear Bilaterally Cardiology CV Exam: Regular Gastrointestinal/Abdomen GI Exam: Soft, Non-Tender, Bowel Sounds Present Musculoskeletal MS Exam: Joints Intact Extremeties Extremities Exam: Moderate Edema, Pitting Edema Neurologic Neuro Exam: Alert, Awake, Moving All Extremities Assessment/Plan Problem List: (1) Acute renal failure superimposed on stage 3 chronic kidney disease ICD Codes: N17.9 - Acute kidney failure, unspecified; N18.3 - Chronic kidney disease, stage 3 (moderate) Status: Acute Plan: He has biopsy proven diabetic nephropathy. No further workup is necessary. Cr 2.34 Lasix 20 mg daily follow BMP He is on ARB now on Losartan. If renal function is stable Continue Lasix. stable (2) CHF (congestive heart failure) ICD Codes: I50.9 - Heart failure, unspecified Status: Acute Plan: Cardiology following. Likely has diastolic heart failure. (3) Diabetes mellitus ICD Codes: E11.9 - Diabetes mellitus Status: Chronic Plan: continue insulin coverage. (4) Hypertension ICD Codes: I10 - Hypertension Status: Chronic Plan: on Losartan as tolerated. Problem Qualifiers (1) CHF (congestive heart failure): Qualified Codes: I50.9 - Heart failure, unspecified Immanuel Kapoor MD Sep 21, 2017 12:01
[2017-09-21] MEDS ORDERED: INSULIN DETEMIR 100 UNITS/ML VIAL SQ SCH (21:00)
[2017-09-21] MEDS: ENOXAPARIN SODIUM 30 MG/0.3 ML SYRINGE SQ SCH (22:00)
[2017-09-22] VITALS (29 sets, daily range): BP systolic 154–188; BP diastolic 76–106; PULSE 58–94; RESP 16–18; TEMP 98.4–99.4; O2SAT 94–96
[2017-09-22] MEDS: cefTRIAXone INJ 1,000 MG in SODIUM CHLORIDE 0.9% INJ 100 ML IV SCH (01:05)
[2017-09-22] MEDS: RESP: ALBUTEROL 2.5 MG/IPRATROPIUM 0.5 MG NEB (SCH) NEB ×4 (07:17→20:32)
[2017-09-22] MEDS: INSULIN ASPART SUPPLEMENTAL SCALE SQ SCH ×4 (08:00→20:50)
[2017-09-22] MEDS: glipiZIDE 10 MG TAB PO SCH ×2 (09:01→15:02)
[2017-09-22] MEDS: FUROSEMIDE 20 MG TAB PO SCH (09:01)
[2017-09-22] MEDS: DOXYCYCLINE HYCLATE 100 MG TAB PO SCH ×2 (09:01→20:50)
[2017-09-22] MEDS: METOPROLOL TARTRATE 50 MG TAB PO SCH ×2 (09:02→20:50)
[2017-09-22] MEDS: DIVALPROEX SODIUM DELAYED RELEASE 250 MG TAB PO SCH ×3 (09:02→17:30)
[2017-09-22] MEDS: DILTIAZEM-CD 240 MG CAP ER PO SCH ×2 (09:02→20:50)
[2017-09-22] MEDS: LOSARTAN 50 MG TAB PO SCH (09:02)
[2017-09-22] MEDS: hydrALAZINE HCL 50 MG TAB PO SCH ×3 (09:09→20:56)
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
[2017-09-22] MEDS: cloNIDine HCL 0.1 MG TAB PO PRN ×2 (11:50)
[2017-09-22 12:11] LABS: BICARBONATE 27.8 MEQ/L (21.0-32.0); BLOOD UREA NITROGEN 47 MG/DL (7-18); CALCIUM 9.2 MG/DL (8.5-10.1); CHLORIDE 105 MEQ/L (98-107); CREATININE 1.88 MG/DL (0.60-1.30); GLOMERULAR FILTRATION RATE 37 ML/MIN (>89); GLUCOSE,RANDOM 138 MG/DL (74-106); SODIUM (NA) 141 MEQ/L (136-145)
--- NOTE | 2017-09-22 14:12 | HHI.NPPN ---
Subjective History of Present Illness Mr. Dixon has solitary kidney. He has heavy, nephrotic range proteinuria ( estimated at 12 grams in August). On 08/23/17 he had a renal biopsy which revealed nodular diabetic glomerulopathy, severe interstitial fibrosis and tubular fibrosis. Review of Systems General Constitutional: Fatigue Cardiovascular Cardiac: Edema Objective Data Data Vital Signs Date Time Temp Pulse Resp B/P (MAP) Pulse Ox O2 Delivery O2 Flow Rate FiO2 09/22/17 13:11 72 09/22/17 13:05 72 09/22/17 12:31 58 09/22/17 11:54 75 09/22/17 11:53 98.5 75 16 174/95 (121) 94 09/22/17 11:53 94 Room Air 09/22/17 10:00 74 09/22/17 08:23 94 Room Air 09/22/17 08:02 84 09/22/17 08:00 98.5 82 16 188/106 (133) 94 09/22/17 07:43 94 09/22/17 07:17 96 21 09/22/17 06:00 71 09/22/17 05:00 70 09/22/17 04:00 72 09/22/17 03:30 98.9 72 16 154/76 (102) 95 09/22/17 03:30 95 Room Air 09/22/17 03:00 72 09/22/17 02:00 69 09/22/17 01:00 77 09/22/17 00:50 154/82 (106) 09/22/17 00:00 99.4 83 16 173/81 (111) 94 09/22/17 00:00 94 Room Air 09/22/17 00:00 81 09/21/17 23:00 84 09/21/17 22:00 84 09/21/17 21:00 90 09/21/17 20:00 99.0 94 16 187/91 (123) 95 09/21/17 20:00 100 09/21/17 20:00 95 Room Air 09/21/17 19:50 94 21 09/21/17 19:00 86 09/21/17 18:00 92 09/21/17 17:59 100 09/21/17 16:00 98.6 100 20 181/81 (114) 94 09/21/17 15:00 90 09/21/17 15:00 95 Nasal Cannula 4.00 -: 09/18/17 0627 09/22/17 1123 Physical Exam General Appearance: Well Developed, No Acute Distress Pulmonary Resp Exam: Clear Bilaterally Cardiology CV Exam: Regular Gastrointestinal/Abdomen GI Exam: Soft, Non-Tender, Bowel Sounds Present Musculoskeletal MS Exam: Joints Intact Extremeties Extremities Exam: Moderate Edema, Pitting Edema Neurologic Neuro Exam: Alert, Awake, Moving All Extremities Assessment/Plan Problem List: (1) Acute renal failure superimposed on stage 3 chronic kidney disease ICD Codes: N17.9 - Acute kidney failure, unspecified; N18.3 - Chronic kidney disease, stage 3 (moderate) Status: Acute Plan: He has biopsy proven diabetic nephropathy. No further workup is necessary. Cr 2.34 Lasix 20 mg daily follow BMP He is on ARB now on Losartan. his renal function is stable Continue Lasix. stable BP high on Diltiazem 240 bid clonidine 0.1 mg tid Losartan 100 mg daily Metoprolol 50 mg bid (2) CHF (congestive heart failure) ICD Codes: I50.9 - Heart failure, unspecified Status: Acute Plan: Cardiology following. Likely has diastolic heart failure. (3) Diabetes mellitus ICD Codes: E11.9 - Diabetes mellitus Status: Chronic Plan: continue insulin coverage. (4) Hypertension ICD Codes: I10 - Hypertension Status: Chronic Plan: on Losartan as tolerated. Problem Qualifiers (1) CHF (congestive heart failure): Qualified Codes: I50.9 - Heart failure, unspecified Immanuel Kapoor MD Sep 22, 2017 14:12
[2017-09-22] MEDS: cloNIDine HCL 0.1 MG TAB PO SCH ×2 (15:03→20:49)
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
[2017-09-22 16:37] LABS: HEMOGLOBIN A1C 7.3 % (4.3-6.0)
[2017-09-22] MEDS: ENOXAPARIN SODIUM 30 MG/0.3 ML SYRINGE SQ SCH (20:49)
[2017-09-23] VITALS (13 sets, daily range): BP systolic 139–153; BP diastolic 76–83; PULSE 53–68; RESP 18–20; TEMP 98.2–98.6; O2SAT 95–97
[2017-09-23] MEDS: cefTRIAXone INJ 1,000 MG in SODIUM CHLORIDE 0.9% INJ 100 ML IV SCH (00:19)
[2017-09-23] MEDS: cloNIDine HCL 0.1 MG TAB PO SCH (06:05)
[2017-09-23] MEDS: glipiZIDE 10 MG TAB PO SCH (06:05)
[2017-09-23] MEDS: INSULIN ASPART SUPPLEMENTAL SCALE SQ SCH (08:00)
[2017-09-23] MEDS: RESP: ALBUTEROL 2.5 MG/IPRATROPIUM 0.5 MG NEB (SCH) NEB (08:14)
[2017-09-23] MEDS: DILTIAZEM-CD 240 MG CAP ER PO SCH (09:03)
[2017-09-23] MEDS: METOPROLOL TARTRATE 50 MG TAB PO SCH (09:03)
[2017-09-23] MEDS: LOSARTAN 50 MG TAB PO SCH (09:04)
[2017-09-23] MEDS: DIVALPROEX SODIUM DELAYED RELEASE 250 MG TAB PO SCH (09:04)
[2017-09-23] MEDS: FUROSEMIDE 20 MG TAB PO SCH (09:04)
[2017-09-23] MEDS: hydrALAZINE HCL 50 MG TAB PO SCH (09:07)
[2017-09-23] MEDS ORDERED: COZA50TA PO (09:10)
[2017-09-23] MEDS ORDERED: CEPH-460 PO (09:10)
[2017-09-23] MEDS ORDERED: DOXY100C PO (09:10)
[2017-09-23] MEDS ORDERED: CLON.1 PO (09:10)
[2017-09-23] MEDS ORDERED: FURO20TA PO (09:10)
[2017-09-23] MEDS ORDERED: DILT240C44 PO (09:10)
--- NOTE | 2017-09-23 09:11 | HHI.DCPOC ---
Discharge Care Plan Diagnosis: (1) CHF (congestive heart failure) (2) Hypertension (3) PNA (pneumonia) (4) Acute renal failure superimposed on stage 3 chronic kidney disease Goals to Promote Your Health * To prevent worsening of your condition and complications * To maintain your health at the optimal level Directions to Meet Your Goals Take your medications as prescribed Follow your dietary instruction Follow activity as directed Keep your appointments as scheduled Take your immunizations and boosters as scheduled If your symptoms worsen call your PCP, if no PCP go to Urgent Care Center or Emergency Room Smoking is Dangerous to Your Health. Avoid second hand smoke Call the 24-hour hour crisis hotline for domestic abuse at Lincoln Lopez MD Sep 23, 2017 09:11
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
[2017-09-23] MEDS ORDERED: VENTAER INH (09:19)
--- NOTE | 2017-09-23 11:12 | HHI.PR ---
Addendum to Inpatient Note Addendum Reason: Additional Documentation Additional Information CXR reviewed no infiltrate Procalcitonin improved No other ID needs DC antibiotics. alida Carter. Will sign off please call back if any change in clinical condition or questions. Jeny Perez MD Sep 23, 2017 11:12
== END 2017-09-23 11:36 | disposition home or self-care (01) | DRG 291 ==
LOC: NEPC 22:23 → NEDA 09-17 00:15 → HCIS 09-17 01:11
PROVIDERS: ADMIT Hospitalist; ATTEND Hospitalist
PROC: 5A09357 Assistance with Respiratory Ventilation, Less than 24 Consecutive Hours, Continuous Positive Airway Pressure (ICD-10-PCS; principal; 2017-09-16)
DX: I13.0 Hypertensive heart and chronic kidney disease with heart failure and stage 1 through stage 4 chronic kidney disease, or unspecified chronic kidney disease (principal); J18.9 Pneumonia, unspecified organism; N17.9 Acute kidney failure, unspecified; N18.3 Chronic kidney disease, stage 3 (moderate); I50.33 Acute on chronic diastolic (congestive) heart failure; E11.40 Type 2 diabetes mellitus with diabetic neuropathy, unspecified; E11.21 Type 2 diabetes mellitus with diabetic nephropathy; E11.22 Type 2 diabetes mellitus with diabetic chronic kidney disease; E11.65 Type 2 diabetes mellitus with hyperglycemia; Z79.84 Long term (current) use of oral hypoglycemic drugs; I16.0 Hypertensive urgency; Z90.5 Acquired absence of kidney; R09.02 Hypoxemia; Z88.1 Allergy status to other antibiotic agents; G31.84 Mild cognitive impairment of uncertain or unknown etiology; D63.8 Anemia in other chronic diseases classified elsewhere; G40.909 Epilepsy, unspecified, not intractable, without status epilepticus
CPT/HCPCS: 36600; 71045; 71046; 80048; 80053; 81001; 82805; 82948; 83036; 83605; 83735; 83880; 84145; 84484; 85025; 87040; 87449; 87804; 93005; 93306; 93970; 94002; 94618; 94640; 94664; 96365; 96375; J0696; J1650; J1815; J1940; J2920

== ENCOUNTER 2018-04-19 16:50 | Inpatient (IN) ==
[2018-04-19] MEDS ORDERED: Sod Chloride 0.9% Inj 1,000 ML IV.CONT SCH (17:15)
--- NOTE | 2018-04-19 17:23 | ED ---
HPI General Chief Complaint: Arrhythmia / Palpitations Stated Complaint: Cardiac Time Seen by Provider: 04/19/18 16:59 History of Present Illness HPI narrative: Patient 62-year-old male with history of high blood pressure, intracranial hemorrhage(?), CHF(?), operated shoulder melanoma 1 week ago brought to the hospital by ambulance. Patient was feeling weak earlier today called the ambulance, heart rate was 24, systolic blood pressure 90. Patient was very weak responsive. Patient did not respond to atropine, was placed on external pacemaker. In the emergency room she is on the external pacemaker, underlying systolic bradycardia at rate 29. Patient denies dyspnea, fever, significant pain. [facility] Dr. Nick Moss called. Related Data Home Medications Medication Instructions Recorded Confirmed albuterol sulfate [Ventolin HFA] 1 puff INHALATION Q4-6H PRN 04/11/18 04/20/18 cholecalciferol (vitamin D3) 5,000 unit PO DAILY 04/11/18 04/20/18 [Vitamin D3] clonidine HCl 0.1 mg PO BID 04/11/18 04/20/18 diltiazem HCl 480 mg PO DAILY 04/11/18 04/20/18 divalproex 250 mg PO TID 04/11/18 04/20/18 furosemide 20 mg PO DAILY 04/11/18 04/20/18 glipizide 10 mg PO BID 04/11/18 04/20/18 hydralazine 100 mg PO TID 04/11/18 04/20/18 latanoprost 1 drp RIGHT EYE QPM 04/11/18 04/20/18 losartan 100 mg PO DAILY 04/11/18 04/20/18 metoprolol succinate 100 mg PO DAILY 04/11/18 04/20/18 timolol maleate 1 drp EACH EYE DAILY 04/11/18 04/20/18 Allergies Allergy/AdvReac Type Severity Reaction Status Date / Time levofloxacin Allergy Severe Rash Verified 04/12/18 09:36 penicillin G Allergy Severe blistery Verified 04/12/18 09:36 rash metformin Allergy Intermediate Diarrhea Verified 04/12/18 09:36 azithromycin Allergy Mild Itching Verified 04/12/18 09:36 all antibiotics except keflex Allergy Severe Hives Uncoded 04/12/18 09:36 Review of Systems ROS: all other systems reviewed are negative Cardiovascular Comments: Symptomatic bradycardia PMFSH Social History Social History Substance History: No History of Abuse Second Hand Smoke Exposure: No Smoking Status: Never smoker How Often Do You Have a Drink Containing Alcohol: Never Recent Travel in [facility] within the Last 8 Weeks: No Recent Out of Country Travel within the Last 8 Weeks: No Immunization History Tetanus Immunization: >5 Years Exam Narrative Exam Narrative: GENERAL: [-62-year-old male, sedated, weak.] SKIN: Focused skin assessment warm/dry. HEAD: Atraumatic. Normocephalic. EYES: Pupils equal and round. No scleral icterus. No injection or drainage. ENT: No nasal bleeding or discharge. Mucous membranes pink and moist. NECK: Trachea midline. No JVD. CARDIOVASCULAR: Slow heart rate. No murmur appreciated. RESPIRATORY: No accessory muscle use. Clear to auscultation. Breath sounds equal bilaterally. GASTROINTESTINAL: Abdomen soft, non-tender, nondistended. Hepatic and splenic margins not palpable. MUSCULOSKELETAL: No obvious deformities. No clubbing. No cyanosis. No edema. NEUROLOGICAL: Awake and alert. No obvious cranial nerve deficits. Motor grossly within normal limits. Normal speech. PSYCHIATRIC: Appropriate mood and affect; insight and judgment normal. Course Initial Documented Vital Signs Temperature 97.8 F 04/19/18 17:05 Pulse Rate 59 L 04/19/18 17:05 Respiratory Rate 24 04/19/18 17:05 Blood Pressure 103/58 L 04/19/18 17:05 Pulse Oximetry 96 04/19/18 17:05 Last Documented Vital Signs Temperature 97.4 F L 04/20/18 15:00 Pulse Rate 97 H 04/20/18 16:03 Respiratory Rate 17 04/20/18 16:03 Blood Pressure 152/73 H 04/20/18 15:00 Pulse Oximetry 98 04/20/18 15:00 Critical Care Time Critical Care Time: Yes Total Critical Care Time: 60 Attestation: Patient has severe symptomatic bradyarrhythmia, treated with pacemaker fluids and dopamine drip Acute hyperkalemia, treated with multiple medications. Patient was taken to [facility] Operator for pacemaker placement. Case discussed with cotton bag clipper, ICU physician, direct marketing executive. Medical Decision Making MDM Narrative Medical decision making narrative: 62-year-old male with severe symptomatic bradyarrhythmia placed on external pacemaker. Blood work ordered, patient will need permanent pacemaker placement. 1730: [facility] at bedside evaluated the patient. 0: Patient is stabilized on external pacemaker. Dopamin started as per cotton bag clipper order. Hyperkalemia 6.8 treated, first set of troponin is negative. As per Dr. Moss patient needs emergently internal pacemaker placed, patient was was transferred to the [facility], and will be admitted to ICU. ICU attending phone call is pending. 2029: Case discussed with Dr. Gruber direct marketing executive for possible emergent hemodialysis of the patient. 2024: I was unable to reach Dr. Fregoso direct marketing executive personally. I was told that he already discussed the case with ICU attending. 1919: Case discussed with Dr. Bullock who requested nephrology consult for emergent dialysis. 2023: I was unable to reach Dr. Fregoso direct marketing executive personally. I was told that he already discussed the case with ICU attending. 2024: I spoke with Dr. Gruber., He will be on the case as a direct marketing executive. Medical Screen Exam Complete: Yes Emergency Medical Condition: Yes Differential Diagnosis Differential Diagnosis: Symptomatic bradycardia Rule out SD Lab Data Result diagrams: 04/20/18 04:07 04/20/18 04:07 Lab Results 04/19/18 04/19/18 04/19/18 Range/Units 17:08 17:08 17:08 WBC 9.4 (4.0-11.0) th/mm3 RBC 3.35 L (4.50-5.90) mil/mm3 Hgb 10.2 L (13.0-17.0) gm/dL POC Hgb (Calc) Hct 30.7 L (39.0-51.0) % POC Hct MCV 91.5 (80.0-100.0) fL MCH 30.6 (27.0-34.0) pg MCHC 33.4 (32.0-36.0) % RDW 15.7 (11.6-17.2) % Plt Count 192 (150-450) th/mm3 MPV 8.3 (7.0-11.0) fL Neut % (Auto) 72.8 H (16.0-70.0) % Lymph % (Auto) 13.2 (9.0-44.0) % [place] % (Auto) 9.0 H (0.0-8.0) % Eos % (Auto) 4.2 H (0.0-4.0) % Baso % (Auto) 0.8 (0.0-2.0) % Neut # (Auto) 6.9 (1.8-7.7) th/mm3 Lymph # (Auto) 1.2 (1.0-4.8) th/mm3 [place] # (Auto) 0.8 (0.0-0.9) th/mm3 Eos # (Auto) 0.4 (0.0-0.4) th/mm3 Baso # (Auto) 0.1 (0.0-0.2) th/mm3 WBC Differential . Differential Comment Auto diff final PT (9.8-11.6) sec INR Ratio APTT (24.3-30.1) sec Puncture Site Patient Temperature O2 Saturation (90-100) % ABG pH (7.380-7.420) ABG pCO2 (38-42) mmHg ABG pO2 (61-120) mmHG ABG HCO3 (22-26) mmol/L ABG O2 Content (12.0-20.0) Vol % ABG Base Excess (-2-2) mmol/L ABG Methemoglobin (0-2) % Alan Test Hemoglobin (12.0-16.0) G/DL Carboxyhemoglobin (0-4) % O2 Delivery Device Liter Flow L/M Critical Value POC Sodium Sodium 137 (136-145) meq/L POC Potassium Potassium 6.8 H* (3.5-5.1) meq/L POC Chloride Chloride 106 (98-107) meq/L Carbon Dioxide 20.3 L (21.0-32.0) meq/L Anion Gap 11 (5-15) meq/L POC BUN BUN 52 H (7-18) mg/dL Creatinine 2.86 H (0.60-1.30) mg/dL POC Creatinine Estimated GFR 22 L (>89) mL/min POC Glucose Random Glucose 398 H (74-106) mg/dL Calcium 7.7 L (8.5-10.1) mg/dL Total Bilirubin 0.3 (0.2-1.0) mg/dL AST 27 (15-37) U/L ALT 37 (12-78) U/L Alkaline Phosphatase 68 (45-117) U/L Troponin I Less than 0.02 L (0.02-0.05) ng/mL B-Natriuretic Peptide 121 H (0-100) pg/mL Total Protein 6.0 L (6.4-8.2) g/dL Albumin 2.4 L (3.4-5.0) g/dL Nasal Screen MRSA (PCR) (Negative) Valproic Acid (50-100) mcg/mL 04/19/18 04/19/18 04/19/18 Range/Units 17:08 19:17 20:21 WBC (4.0-11.0) th/mm3 RBC (4.50-5.90) mil/mm3 Hgb (13.0-17.0) gm/dL POC Hgb (Calc) Cancelled Hct (39.0-51.0) % POC Hct Cancelled MCV (80.0-100.0) fL MCH (27.0-34.0) pg MCHC (32.0-36.0) % RDW (11.6-17.2) % Plt Count (150-450) th/mm3 MPV (7.0-11.0) fL Neut % (Auto) (16.0-70.0) % Lymph % (Auto) (9.0-44.0) % [place] % (Auto) (0.0-8.0) % Eos % (Auto) (0.0-4.0) % Baso % (Auto) (0.0-2.0) % Neut # (Auto) (1.8-7.7) th/mm3 Lymph # (Auto) (1.0-4.8) th/mm3 [place] # (Auto) (0.0-0.9) th/mm3 Eos # (Auto) (0.0-0.4) th/mm3 Baso # (Auto) (0.0-0.2) th/mm3 WBC Differential Differential Comment PT 10.4 (9.8-11.6) sec INR 1.0 Ratio APTT 24.7 (24.3-30.1) sec Puncture Site Patient Temperature O2 Saturation (90-100) % ABG pH (7.380-7.420) ABG pCO2 (38-42) mmHg ABG pO2 (61-120) mmHG ABG HCO3 (22-26) mmol/L ABG O2 Content (12.0-20.0) Vol % ABG Base Excess (-2-2) mmol/L ABG Methemoglobin (0-2) % Alan Test Hemoglobin (12.0-16.0) G/DL Carboxyhemoglobin (0-4) % O2 Delivery Device Liter Flow L/M Critical Value POC Sodium Cancelled Sodium 137 (136-145) meq/L POC Potassium Cancelled Potassium 5.9 H D (3.5-5.1) meq/L POC Chloride Cancelled Chloride 106 (98-107) meq/L Carbon Dioxide 20.6 L (21.0-32.0) meq/L Anion Gap 10 (5-15) meq/L POC BUN Cancelled BUN 51 H (7-18) mg/dL Creatinine 3.11 H (0.60-1.30) mg/dL POC Creatinine Cancelled Estimated GFR 20 L (>89) mL/min POC Glucose Cancelled Random Glucose 405 H (74-106) mg/dL Calcium 8.1 L (8.5-10.1) mg/dL Total Bilirubin 0.4 (0.2-1.0) mg/dL AST 59 H (15-37) U/L ALT 73 (12-78) U/L Alkaline Phosphatase 78 (45-117) U/L Troponin I (0.02-0.05) ng/mL B-Natriuretic Peptide (0-100) pg/mL Total Protein 6.3 L (6.4-8.2) g/dL Albumin 2.5 L (3.4-5.0) g/dL Nasal Screen MRSA (PCR) (Negative) Valproic Acid (50-100) mcg/mL 04/19/18 04/19/18 04/19/18 Range/Units 21:08 21:15 22:02 WBC (4.0-11.0) th/mm3 RBC (4.50-5.90) mil/mm3 Hgb (13.0-17.0) gm/dL POC Hgb (Calc) Hct (39.0-51.0) % POC Hct MCV (80.0-100.0) fL MCH (27.0-34.0) pg MCHC (32.0-36.0) % RDW (11.6-17.2) % Plt Count (150-450) th/mm3 MPV (7.0-11.0) fL Neut % (Auto) (16.0-70.0) % Lymph % (Auto) (9.0-44.0) % [place] % (Auto) (0.0-8.0) % Eos % (Auto) (0.0-4.0) % Baso % (Auto) (0.0-2.0) % Neut # (Auto) (1.8-7.7) th/mm3 Lymph # (Auto) (1.0-4.8) th/mm3 [place] # (Auto) (0.0-0.9) th/mm3 Eos # (Auto) (0.0-0.4) th/mm3 Baso # (Auto) (0.0-0.2) th/mm3 WBC Differential Differential Comment PT (9.8-11.6) sec INR Ratio APTT (24.3-30.1) sec Puncture Site Left radial Patient Temperature 98.6 O2 Saturation 87 L* (90-100) % ABG pH 7.33 L (7.380-7.420) ABG pCO2 40 (38-42) mmHg ABG pO2 62 (61-120) mmHG ABG HCO3 20 L (22-26) mmol/L ABG O2 Content 13.8 (12.0-20.0) Vol % ABG Base Excess -4.7 L (-2-2) mmol/L ABG Methemoglobin 1.7 (0-2) % Alan Test Present Hemoglobin 11.3 L (12.0-16.0) G/DL Carboxyhemoglobin 1.0 (0-4) % O2 Delivery Device Non-rebreathing mask Liter Flow 15.00 L/M Critical Value Yes POC Sodium Sodium (136-145) meq/L POC Potassium Potassium (3.5-5.1) meq/L POC Chloride Chloride (98-107) meq/L Carbon Dioxide (21.0-32.0) meq/L Anion Gap (5-15) meq/L POC BUN BUN (7-18) mg/dL Creatinine (0.60-1.30) mg/dL POC Creatinine Estimated GFR (>89) mL/min POC Glucose 412 H 330 H Random Glucose (74-106) mg/dL Calcium (8.5-10.1) mg/dL Total Bilirubin (0.2-1.0) mg/dL AST (15-37) U/L ALT (12-78) U/L Alkaline Phosphatase (45-117) U/L Troponin I (0.02-0.05) ng/mL B-Natriuretic Peptide (0-100) pg/mL Total Protein (6.4-8.2) g/dL Albumin (3.4-5.0) g/dL Nasal Screen MRSA (PCR) (Negative) Valproic Acid (50-100) mcg/mL 04/19/18 04/19/18 04/19/18 Range/Units 23:16 23:50 23:52 WBC (4.0-11.0) th/mm3 RBC (4.50-5.90) mil/mm3 Hgb (13.0-17.0) gm/dL POC Hgb (Calc) Hct (39.0-51.0) % POC Hct MCV (80.0-100.0) fL MCH (27.0-34.0) pg MCHC (32.0-36.0) % RDW (11.6-17.2) % Plt Count (150-450) th/mm3 MPV (7.0-11.0) fL Neut % (Auto) (16.0-70.0) % Lymph % (Auto) (9.0-44.0) % [place] % (Auto) (0.0-8.0) % Eos % (Auto) (0.0-4.0) % Baso % (Auto) (0.0-2.0) % Neut # (Auto) (1.8-7.7) th/mm3 Lymph # (Auto) (1.0-4.8) th/mm3 [place] # (Auto) (0.0-0.9) th/mm3 Eos # (Auto) (0.0-0.4) th/mm3 Baso # (Auto) (0.0-0.2) th/mm3 WBC Differential Differential Comment PT (9.8-11.6) sec INR Ratio APTT (24.3-30.1) sec Puncture Site Patient Temperature O2 Saturation (90-100) % ABG pH (7.380-7.420) ABG pCO2 (38-42) mmHg ABG pO2 (61-120) mmHG ABG HCO3 (22-26) mmol/L ABG O2 Content (12.0-20.0) Vol % ABG Base Excess (-2-2) mmol/L ABG Methemoglobin (0-2) % Alan Test Hemoglobin (12.0-16.0) G/DL Carboxyhemoglobin (0-4) % O2 Delivery Device Liter Flow L/M Critical Value POC Sodium Sodium (136-145) meq/L POC Potassium Potassium 5.2 H (3.5-5.1) meq/L POC Chloride Chloride (98-107) meq/L Carbon Dioxide (21.0-32.0) meq/L Anion Gap (5-15) meq/L POC BUN BUN (7-18) mg/dL Creatinine (0.60-1.30) mg/dL POC Creatinine Estimated GFR (>89) mL/min POC Glucose 268 H 256 H Random Glucose (74-106) mg/dL Calcium (8.5-10.1) mg/dL Total Bilirubin (0.2-1.0) mg/dL AST (15-37) U/L ALT (12-78) U/L Alkaline Phosphatase (45-117) U/L Troponin I (0.02-0.05) ng/mL B-Natriuretic Peptide (0-100) pg/mL Total Protein (6.4-8.2) g/dL Albumin (3.4-5.0) g/dL Nasal Screen MRSA (PCR) (Negative) Valproic Acid (50-100) mcg/mL 04/19/18 04/20/18 04/20/18 Range/Units 23:52 01:06 02:14 WBC (4.0-11.0) th/mm3 RBC (4.50-5.90) mil/mm3 Hgb (13.0-17.0) gm/dL POC Hgb (Calc) Hct (39.0-51.0) % POC Hct MCV (80.0-100.0) fL MCH (27.0-34.0) pg MCHC (32.0-36.0) % RDW (11.6-17.2) % Plt Count (150-450) th/mm3 MPV (7.0-11.0) fL Neut % (Auto) (16.0-70.0) % Lymph % (Auto) (9.0-44.0) % [place] % (Auto) (0.0-8.0) % Eos % (Auto) (0.0-4.0) % Baso % (Auto) (0.0-2.0) % Neut # (Auto) (1.8-7.7) th/mm3 Lymph # (Auto) (1.0-4.8) th/mm3 [place] # (Auto) (0.0-0.9) th/mm3 Eos # (Auto) (0.0-0.4) th/mm3 Baso # (Auto) (0.0-0.2) th/mm3 WBC Differential Differential Comment PT (9.8-11.6) sec INR Ratio APTT (24.3-30.1) sec Puncture Site Patient Temperature O2 Saturation (90-100) % ABG pH (7.380-7.420) ABG pCO2 (38-42) mmHg ABG pO2 (61-120) mmHG ABG HCO3 (22-26) mmol/L ABG O2 Content (12.0-20.0) Vol % ABG Base Excess (-2-2) mmol/L ABG Methemoglobin (0-2) % Alan Test Hemoglobin (12.0-16.0) G/DL Carboxyhemoglobin (0-4) % O2 Delivery Device Liter Flow L/M Critical Value POC Sodium Sodium (136-145) meq/L POC Potassium Potassium (3.5-5.1) meq/L POC Chloride Chloride (98-107) meq/L Carbon Dioxide (21.0-32.0) meq/L Anion Gap (5-15) meq/L POC BUN BUN (7-18) mg/dL Creatinine (0.60-1.30) mg/dL POC Creatinine Estimated GFR (>89) mL/min POC Glucose 210 H 175 H Random Glucose (74-106) mg/dL Calcium (8.5-10.1) mg/dL Total Bilirubin (0.2-1.0) mg/dL AST (15-37) U/L ALT (12-78) U/L Alkaline Phosphatase (45-117) U/L Troponin I (0.02-0.05) ng/mL B-Natriuretic Peptide (0-100) pg/mL Total Protein (6.4-8.2) g/dL Albumin (3.4-5.0) g/dL Nasal Screen MRSA (PCR) Not detected (Negative) Valproic Acid (50-100) mcg/mL 04/20/18 04/20/18 04/20/18 Range/Units 04:07 04:07 06:21 WBC 9.9 (4.0-11.0) th/mm3 RBC 3.82 L (4.50-5.90) mil/mm3 Hgb 11.4 L (13.0-17.0) gm/dL POC Hgb (Calc) Hct 34.1 L (39.0-51.0) % POC Hct MCV 89.4 (80.0-100.0) fL MCH 29.9 (27.0-34.0) pg MCHC 33.4 (32.0-36.0) % RDW 15.6 (11.6-17.2) % Plt Count 170 (150-450) th/mm3 MPV 7.8 (7.0-11.0) fL Neut % (Auto) 80.9 H (16.0-70.0) % Lymph % (Auto) 9.5 (9.0-44.0) % [place] % (Auto) 8.4 H (0.0-8.0) % Eos % (Auto) 0.4 (0.0-4.0) % Baso % (Auto) 0.8 (0.0-2.0) % Neut # (Auto) 8.0 H (1.8-7.7) th/mm3 Lymph # (Auto) 0.9 L (1.0-4.8) th/mm3 [place] # (Auto) 0.8 (0.0-0.9) th/mm3 Eos # (Auto) 0.0 (0.0-0.4) th/mm3 Baso # (Auto) 0.1 (0.0-0.2) th/mm3 WBC Differential . Differential Comment Auto diff final PT (9.8-11.6) sec INR Ratio APTT (24.3-30.1) sec Puncture Site Patient Temperature O2 Saturation (90-100) % ABG pH (7.380-7.420) ABG pCO2 (38-42) mmHg ABG pO2 (61-120) mmHG ABG HCO3 (22-26) mmol/L ABG O2 Content (12.0-20.0) Vol % ABG Base Excess (-2-2) mmol/L ABG Methemoglobin (0-2) % Alan Test Hemoglobin (12.0-16.0) G/DL Carboxyhemoglobin (0-4) % O2 Delivery Device Liter Flow L/M Critical Value POC Sodium Sodium 146 H (136-145) meq/L POC Potassium Potassium 4.9 (3.5-5.1) meq/L POC Chloride Chloride 108 H (98-107) meq/L Carbon Dioxide 28.4 (21.0-32.0) meq/L Anion Gap 10 (5-15) meq/L POC BUN BUN 49 H (7-18) mg/dL Creatinine 3.07 H (0.60-1.30) mg/dL POC Creatinine Estimated GFR 21 L (>89) mL/min POC Glucose 121 H Random Glucose 163 H D (74-106) mg/dL Calcium 8.4 L (8.5-10.1) mg/dL Total Bilirubin 0.2 (0.2-1.0) mg/dL AST 50 H (15-37) U/L ALT 82 H (12-78) U/L Alkaline Phosphatase 84 (45-117) U/L Troponin I (0.02-0.05) ng/mL B-Natriuretic Peptide (0-100) pg/mL Total Protein 6.8 (6.4-8.2) g/dL Albumin 2.7 L (3.4-5.0) g/dL Nasal Screen MRSA (PCR) (Negative) Valproic Acid 27 L (50-100) mcg/mL 04/20/18 04/20/18 04/20/18 Range/Units 08:58 11:26 17:02 WBC (4.0-11.0) th/mm3 RBC (4.50-5.90) mil/mm3 Hgb (13.0-17.0) gm/dL POC Hgb (Calc) Hct (39.0-51.0) % POC Hct MCV (80.0-100.0) fL MCH (27.0-34.0) pg MCHC (32.0-36.0) % RDW (11.6-17.2) % Plt Count (150-450) th/mm3 MPV (7.0-11.0) fL Neut % (Auto) (16.0-70.0) % Lymph % (Auto) (9.0-44.0) % [place] % (Auto) (0.0-8.0) % Eos % (Auto) (0.0-4.0) % Baso % (Auto) (0.0-2.0) % Neut # (Auto) (1.8-7.7) th/mm3 Lymph # (Auto) (1.0-4.8) th/mm3 [place] # (Auto) (0.0-0.9) th/mm3 Eos # (Auto) (0.0-0.4) th/mm3 Baso # (Auto) (0.0-0.2) th/mm3 WBC Differential Differential Comment PT (9.8-11.6) sec INR Ratio APTT (24.3-30.1) sec Puncture Site Patient Temperature O2 Saturation (90-100) % ABG pH (7.380-7.420) ABG pCO2 (38-42) mmHg ABG pO2 (61-120) mmHG ABG HCO3 (22-26) mmol/L ABG O2 Content (12.0-20.0) Vol % ABG Base Excess (-2-2) mmol/L ABG Methemoglobin (0-2) % Alan Test Hemoglobin (12.0-16.0) G/DL Carboxyhemoglobin (0-4) % O2 Delivery Device Liter Flow L/M Critical Value POC Sodium Sodium (136-145) meq/L POC Potassium Potassium (3.5-5.1) meq/L POC Chloride Chloride (98-107) meq/L Carbon Dioxide (21.0-32.0) meq/L Anion Gap (5-15) meq/L POC BUN BUN (7-18) mg/dL Creatinine (0.60-1.30) mg/dL POC Creatinine Estimated GFR (>89) mL/min POC Glucose 85 146 H 164 H Random Glucose (74-106) mg/dL Calcium (8.5-10.1) mg/dL Total Bilirubin (0.2-1.0) mg/dL AST (15-37) U/L ALT (12-78) U/L Alkaline Phosphatase (45-117) U/L Troponin I (0.02-0.05) ng/mL B-Natriuretic Peptide (0-100) pg/mL Total Protein (6.4-8.2) g/dL Albumin (3.4-5.0) g/dL Nasal Screen MRSA (PCR) (Negative) Valproic Acid (50-100) mcg/mL Imaging Data Radiologist's impression: Chest X-Ray 04/19/18 17:03 CONCLUSION: No acute cardiopulmonary disease. ECG Data EKG Prior to Arrival: Yes Attestation: I personally reviewed and interpreted this ECG as follows: Prior ECG tracings: available for review Interpretation: Externally paced rhythm, underlying systolic bradycardia at rate 29. No ST elevation Discharge Plan Discharge Disposition Patient Disposition: 30 Still Patient Discharge Condition Condition: Critical Discharge Details Discharge Comment: Patient is in critical condition. Symptomatic bradyarrhythmia due to renal failure and hyperkalemia, hyperglycemia. Will be admitted to ICU Diagnosis: Bradyarrhythmia, Acute hyperkalemia, Acute renal failure, Acute hyperglycemia Physicians Team ED Provider: Bruno Wright Primary Care Provider: Miladys Almaguer Attending Provider: Zander Merritt Other Providers: Zander Merritt ; Nandini Gruber ; Lincoln Lopez Status ED Status: Left Department Discharge Information Discharge Date/Time: 04/19/18 19:30
--- NOTE | 2018-04-19 17:24 | XR ---
EXAM DATE: 04/19/2018 5:03 PM EDT AGE/SEX: 62 years / Male INDICATIONS: Chest pain, irregular heart rhythm. CLINICAL DATA: This is the patient's initial encounter. Patient reports that signs and symptoms have been present for 1 day and indicates a pain score of 10/10. MEDICAL/SURGICAL HISTORY: None. None. COMPARISON: [facility], CHEST SINGLE AP, 09/22/2017. . FINDINGS: A single AP view of the chest demonstrates the lungs to be symmetrically aerated without evidence of mass, infiltrate or effusion. Atherosclerotic calcifications are again noted in the aorta. The cardi omediastinal contours are unremarkable. Osseous structures are intact. Multiple overlying electroca rdiogram leads. CONCLUSION: No acute cardiopulmonary disease. Electronically signed by: Jeremías Tam MD 04/19/2018 5:23 PM EDT
[2018-04-19 17:42] LABS: Baso # (Auto) 0.1 th/mm3 (0.0-0.2); Baso % (Auto) 0.8 % (0.0-2.0); Eos # (Auto) 0.4 th/mm3 (0.0-0.4); Eos % (Auto) 4.2 % (0.0-4.0); Hematocrit 30.7 % (39.0-51.0); Hemoglobin 10.2 gm/dL (13.0-17.0); Lymph # (Auto) 1.2 th/mm3 (1.0-4.8); Lymph % (Auto) 13.2 % (9.0-44.0); Mean Corpuscular HGB Conc 33.4 % (32.0-36.0); Mean Corpuscular Hemoglobin 30.6 pg (27.0-34.0); Mean Corpuscular Volume 91.5 fL (80.0-100.0); Mean Platelet Volume 8.3 fL (7.0-11.0); Mono # (Auto) 0.8 th/mm3 (0.0-0.9); Neut # (Auto) 6.9 th/mm3 (1.8-7.7); Neut % (Auto) 72.8 % (16.0-70.0); Platelet Count 192 th/mm3 (150-450); Red Blood Count 3.35 mil/mm3 (4.50-5.90); Red Cell Distribution Width 15.7 % (11.6-17.2); White Blood Count 9.4 th/mm3 (4.0-11.0)
[2018-04-19 17:57] LABS: Activated Partial Thrombo Time 24.7 sec (24.3-30.1); Prothrombin Time 10.4 sec (9.8-11.6)
[2018-04-19 18:11] LABS: Alanine Aminotransferase 37 U/L (12-78); Albumin 2.4 g/dL (3.4-5.0); Alkaline Phosphatase 68 U/L (45-117); Anion Gap 11 meq/L (5-15); Aspartate Aminotransferase 27 U/L (15-37); Blood Urea Nitrogen 52 mg/dL (7-18); Calcium 7.7 mg/dL (8.5-10.1); Carbon Dioxide 20.3 meq/L (21.0-32.0); Chloride 106 meq/L (98-107); Glomerular Filtration Rate 22 mL/min (>89); Glucose,Random 398 mg/dL (74-106); Sodium 137 meq/L (136-145)
[2018-04-19] MEDS ORDERED: DOPamine 400 MG/250 ML Premix 400 MG/250 ML BAG IV.CONT ONE (18:39)
[2018-04-19 18:53] LABS: Potassium 6.8 meq/L (3.5-5.1)
[2018-04-19] MEDS ORDERED: Dextrose 50% in Water 50 ML Vial IV.PUSH ONE (18:53)
[2018-04-19] MEDS ORDERED: Calcium Gluconate Inj 1 GM in Sodium Chlor 0.9% Inj 100 ML IV.SIG ONE ×2 (18:53→22:00)
[2018-04-19] MEDS ORDERED: Bisacodyl 10 MG Supp RECTAL PRN (19:32)
[2018-04-19] MEDS ORDERED: fentaNYL Citrate Inj 100 MCG/2 ML Ampul ONE (19:42)
[2018-04-19] MEDS ORDERED: Heparin/NS PF Inj 1,000 ML ONE (19:42)
[2018-04-19] MEDS ORDERED: Dextrose 50% in Water 50 ML Vial IV.PUSH PRN ×2 (20:02→22:00)
--- NOTE | 2018-04-19 20:37 | CATHPROC ---
[facility] HIS Report Study Information Study Number Admission Scheduled Start Study Start [id number] Apr 19 2018 4:50PM 04/19/2018 Apr 19 2018 7:32PM [place] [facility] Cardiac Pacer/ICD Admit Source Facility Department Emergency department [facility] - Pound Attendant Physician and Clinical Staff Initial Elizabeth Kim Farmworker Cranberry Paco Enriquez,RN Additional Nick Stacy Farmworker [employer] Juana Lombardi,EMMA Recorder Kellen Bain,RT(R) Dominique Logan RT(R) (BS) Procedures Performed Procedure Location (Site) Vessel Name Pacemaker Temp Jugular Vein (right) Jugular Equipment Time Serging Machine Operator Description Size Mfg Part Number Used/Scraped [id number] 20:31 ARGON/MAXXIM DRAPE, BRACHIAL REINFORCED * Used *[id number] 19:59 ROACH PRIETO PACING CATHETER J CURVE FR 5 Used *[id number] INTRODUCER SET, 20:00 [employer] FR 5 [id number] *[id number] Used MICROPUNCTURE STIFF DRESSING, BIOPATCH 1" 4MM DISK MARINE POLYMER 20:10 PATCH, SYVEK EXCEL (PACER) 400-16-05 Used TECHNOLOGIES [id number] 19:51 [employer] BLANKET,WARM AIR CCL * Used *[id number] 19:51 [employer] PACK, CCL CUSTOM * Used *[id number] PROBE COVER, STERILE [id number] 19:53 [facility] * Used ULTRASOUND W/ GEL *[id number] History: Allergies Allergy Reaction azithromycin Itching penicillin G blistery rash levofloxacin Rash all antibiotics except keflex Hives metformin Diarrhea Labs Hgb (g/dl) Hct (%) WBC (l/cumm) Platelets (thousands) 11.60-17.00 35.00-51.00 4.00-11.00 150.00-450.00 10.2 30.7 9.4 192 Glucose (mg/dl) BUN (mg/dl) Creatinine (mg/dl) BUN:Creatinine (1:x) 74.00-106.00 7.00-18.00 0.50-1.30 10.00-20.00 398 52 2.8 18.6 Na (meq/l) K (meq/l) 136.00-145.00 3.50-5.10 137 6.8 INR (PTT:PT) 0.90-1.10 1 Troponin I (ng/ml) CPK-MB (ng/ML) 0.02-0.05 0.50-3.60 0.02 Not Drawn Medication Medication Total Dose (Bolus/Oral) Medication Total Dosage/Unit 1% XYLOCAINE 5 mL ZOFRAN 4 mg Medications (Bolus/Oral) Medication Time Given Dosage/Unit Administered By Reason ZOFRAN 04/19/2018 7:52:59 PM 4 mg Paco Enriquez 4 mg ZOFRAN given in lab by Paco Enriquez RN in Left Antecubital via Central IV. Ordered by Omkar Romero. 1% XYLOCAINE 04/19/2018 8:00:20 PM 5 mL Elizabeth Romero 5 mL 1% XYLOCAINE given in lab by Elizabeth Romero via right side neck Subcutaneous. Medication (Drip) Medication Time Given Dosage/Unit Concentration/Unit Diluent (ml) Solution DOPAMINE DRIP 04/19/2018 8:16:50 PM 16.1 units/hr 50 100 STOPPED 16.1 units/hr DOPAMINE DRIP STOPPED given in lab by Juana Lombardi RN in Right Antecubital via Delmi pheral IV. Pump/Drip Flow = 32.2 ml/hr using [Solution Name] with a concentration of 50 in 100 ml. DOPAMINE HCL 04/19/2018 7:45:59 PM 0 mcg/kg/min 800 mg 500 D5W Patient arrived on 0 mcg/kg/min DOPAMINE HCL in Right Antecubital via Peripheral IV. Pump/Drip Flow = 32.2 ml/hr using D5W with a concentration of 800 mg in 500 ml. IV Solutions 04/19/2018 7:46:00 PM 50 mL (IV) NaCl .9 Patient arrived on IV Solutions in Right Antecubital via Peripheral IV. Pump/Drip Flow using NaCl .9. Initial Case Assessment Cardiovascular Skin color Skin Normal Warm Dry Circulatory - Right Pulses Dorsalis Pedis Femoral 2 3 Scale (0,1,2,3,4,d) Scale (0,1,2,3,4,d) Neurological State Drowsy Respiration - General O2 (lpm) 6 Chronological Log Time Study Chronological Log 19:28:46 Patient arrived via Bed. 19:43:58 Patient Name, D.O.B, / Armband Verified By R.N. 19:43:59 Consent signed by the physician and the patient and verified by the Pound Attendant staff. 19:44:11 Presedation assessment performed by Pound Attendant RN. 19:44:23 Patient has been NPO for Less than 6Hrs. 19:45:56 Patient Warmer Placed on the Table. 19:45:57 Disposable Defibrillator Pads Placed On Patient. 19:45:57 Shonda Prominences Protected 19:45:58 A # 18 IV was noted in the Antecubital (left). Grade = 0 19:45:58 A # 20 IV was noted in the Antecubital (right). Grade = 0 Patient arrived on 0 mcg/kg/min DOPAMINE HCL in Right Antecubital via Peripheral IV. Pump/Drip Flow = 32.2 ml/hr 19:45:59 using D5W with a concentration of 800 mg in 500 ml. 19:46:00 Patient arrived on IV Solutions in Right Antecubital via Peripheral IV. Pump/Drip Flow usi ng NaCl .9. Assessment: Initial Case, Color=Normal, Skin = Warm, Dry Right Pulses: Cabrera Ped=2, Femoral=3 19:46:05 Neurological: State=Drowsy Respiration: O2=6 lpm Vitals capture started with the following parameters, Patient=Adult, Interval=5 min, Initial P gpnzycs=685 mmHg, 19:50:18 Deflation Rate=5 mmHg, Cuff placed on Left Arm 19:51:11 HR=55 bpm, PBQZ=599/54 mmhg, SpO2=94.0 %, Resp=27 B/min 19:51:58 Dr Romero is aware of creatinine and potassium levels and wishes to continue 19:52:59 4 mg ZOFRAN given in lab by Paco Enriquez RN in Left Antecubital via Central IV. Ordered b Elizabeth Tobin. 19:53:45 Reference ECG taken 19:56:02 HR=62 bpm, PJLX=017/52 mmhg, SpO2=96.0 %, Resp=26 B/min Time Out. Correct patient, correct procedure, correct physician, labs, allergies, and equipmen t verified with labor training manager 19:57:56 team present. Fire risk assesment completed (see hard stop sheet for coding). Time Out Con curred by MD and individual staff in procedure. 20:00:17 Case Start 20:00:20 5 mL 1% XYLOCAINE given in lab by Elizabeth Romero via right side neck Subcutaneous. 20:01:01 DQ=886 bpm, DWCT=160/54 mmhg, SpO2=97.0 %, Resp=25 B/min 20:02:05 Access site was right IJ with micropuncture via ultrasound. 20:03:42 A sheath was advanced into the Jugular Vein (right) using the Percutaneous technique. 5 fr IJ kit provided by [facility] 20:06:02 HR=49 bpm, NIBP=99/53 mmhg, SpO2=99.0 %, Resp=26 B/min 20:10:36 A PACING CATHETER J CURVE FR 5 was advanced to the right ventricle. Rate = 80, Output = 10 , MA = 5. 20:11:32 HR=73 bpm, LHNL=811/56 mmhg, SpO2=98.0 %, Resp=26 B/min 20:15:56 HR=79 bpm, DAUF=717/63 mmhg, SpO2=97.0 %, Resp=27 B/min 16.1 units/hr DOPAMINE DRIP STOPPED given in lab by Juana Lombardi RN in Right Antecubital v ia Peripheral IV. 20:16:50 Pump/Drip Flow = 32.2 ml/hr using [Solution Name] with a concentration of 50 in 100 ml. 20:18:42 Temporary pacing catheter sutured in place 20:21:01 HR=79 bpm, HLBJ=540/72 mmhg, SpO2=91.0 %, Resp=31 B/min 20:24:11 In the Jugular Vein (right) the sheath was sutured in place by Elizabeth Romero. 20:24:20 Sterile dressing applied to site 20:24:23 No case complications noted. 20:24:30 Bedside Report will be given. 20:25:20 Case End (Physician broke scrub) 20:26:08 HR=78 bpm, AEWQ=701/49 mmhg, SpO2=90 %, Resp=30 B/min 20:31:28 HR=79 bpm, IINX=032/80 mmhg, SpO2=90 %, Resp=33 B/min 20:33:22 Vitals capture stopped. 20:35:41 Patient moved to bed End Study - Maximum Contrast Load Max Contrast Load (mL) 154.8 End Study - Radiation Exposure Fluoro Time (minutes) 1.0 End Study - Patient Disposition Complications Transferred To Interventional Outcome No Critical Care Bed successful
[2018-04-19 20:42] LABS: Alanine Aminotransferase 73 U/L (12-78); Albumin 2.5 g/dL (3.4-5.0); Alkaline Phosphatase 78 U/L (45-117); Anion Gap 10 meq/L (5-15); Aspartate Aminotransferase 59 U/L (15-37); Blood Urea Nitrogen 51 mg/dL (7-18); Calcium 8.1 mg/dL (8.5-10.1); Carbon Dioxide 20.6 meq/L (21.0-32.0); Chloride 106 meq/L (98-107); Glomerular Filtration Rate 20 mL/min (>89); Glucose,Random 405 mg/dL (74-106); Potassium 5.9 meq/L (3.5-5.1); Sodium 137 meq/L (136-145); Total Protein 6.3 g/dL (6.4-8.2)
--- NOTE | 2018-04-19 21:11 | MB ---
cc: Nick Moss DO DATE: 04/19/2018 REASON FOR CONSULTATION: Symptomatic bradycardia. HISTORY OF PRESENT ILLNESS: This is a 62-year-old gentleman with a history of resistant hypertension, type 2 diabetes, baseline right bundle branch block, diastolic congestive heart failure with an echocardiogram on 09/17/2017 showing an EF of 65% to 70% with trace MR, trace TR,and PAP 35 mmHg, history of closed head injury and seizure disorder with last event around 1977, who presents this afternoon to the [facility] ER with symptomatic bradycardia. Apparently, the patient was feeling in his usual state of health and took his antihypertensive medications, which include clonidine 0.1 mg, diltiazem 240 mg tablet, 2 tablets, hydralazine 100 mg tablet, losartan 100 mg tablet, metoprolol succinate 100 mg tablet, and then later developed lightheadedness and fatigue. EMS was contacted and he was noted to have a heart rate of 24 with a systolic blood pressure of 90 mmHg. The patient was very weak and somewhat confused. He was provided atropine, which did not improve his heart rate. He was placed on a transcutaneous pacing at a heart rate of 60 and his blood pressure increased to 100 mmHg. The patient was evaluated in the ER and denied any recent or current chest pain aside from the transcutaneous pacing being uncomfortable. No dyspnea, palpitations or recent syncope. No lower extremity edema, PND, orthopnea or exercise capacity limitations prior to his event earlier today. The patient was provided 2 liters of normal saline wide open and was just started on a dopamine drip. The patient is conversant. He does note that he did take all of his antihypertensive medications earlier today. CURRENT MEDICATIONS: Include: 1. Clonidine 0.1 mg b.i.d. 2. Diltiazem 240 mg tablet, 2 tablets q.a.m. 3. Hydralazine 100 mg t.i.d. 4. Losartan 100 mg daily. 5. Metoprolol succinate 100 mg daily. 6. Divalproex sodium 250 mg t.i.d. 7. Glipizide 10 mg b.i.d. 8. Albuterol inhaler as needed. LABORATORY DATA: WBC 9.4, hemoglobin 10.2, hematocrit 30.7, platelet count 192. INR 1.0. Sodium 137, potassium 6.8, chloride 106, bicarbonate 20.3, BUN 52, creatinine 2.86, AST 27, ALT 37. Troponin less than 0.02. BNP 121. Albumin 2.4. PAST MEDICAL HISTORY: 1. Hypertension. 2. Diabetes. 3. Closed head injury. 4. Seizure disorder with last episode in 1977. 5. Right bundle branch block. 6. Diastolic congestive heart failure. 7. Chronic renal insufficiency. FAMILY HISTORY: Noncontributory to current presentation. SOCIAL HISTORY: He is retired but fully functioning and ambulatory. He is a lifelong nonsmoker and does not drink alcohol. ALLERGIES: SEE EMR. LISTED TO LEVOFLOXACIN, PENICILLIN G, METFORMIN, AZITHROMYCIN. PHYSICAL EXAMINATION: VITAL SIGNS: Pulse 60 BPM with transcutaneous pacing, BP 98/56, respirations 21, oxygen saturation 95% on 2 liters nasal cannula. GENERAL: A and O x 3, but seems lethargic, but easily arousable. HEENT: Normocephalic, atraumatic. NECK: Supple. No elevation in JVP. CHEST: Clear to auscultation bilaterally anteriorly. CARDIOVASCULAR: Distant heart sounds. Transcutaneous paced with no significant murmurs appreciated. EXTREMITIES: Gurwinder lower extremities with trace bilateral lower extremity edema and venous stasis dermatitis. NEUROLOGIC: A and O x 3. Moves all extremities. ABDOMEN: Soft, nontender. Positive bowel sounds. DIAGNOSTIC STUDIES: Chest x-ray, no acute cardiopulmonary disease. EKG appears to have atrial asystole with a ventricular escape rhythm, heart rate 20s to 30s, right bundle branch block with no significant ST elevation, QTc 410 milliseconds, QRS duration 122 milliseconds. ASSESSMENT: The patient is presenting with symptomatic bradycardia with atrial asystole and a ventricular escape rhythm with borderline hypotension and laboratories initially showing an elevated potassium of 6.8, possibly hyperkalemia versus hemolysis of his blood sample. He also has chronic kidney disease, stage III, with possible mild acute on chronic renal insufficiency with last creatinine of 1.88 on 09/22/2017. RECOMMENDATIONS: Continue transcutaneous pacing and we will activate the cardiac cath lab radiology technologist to place a transvenous pacemaker to treat his underlying potential severe electrolyte abnormality with hyperkalemia and also the multiple AV mike agents that he has been taking including the diltiazem, metoprolol succinate and clonidine. Continue with dopamine drip for now. The patient may require permanent pacemaker placement; however, we will monitor with transvenous pacing over the next day or two. Obtain an echocardiogram to reevaluate LV systolic function. Continue with hydration for possible IVORY. Repeat a stat chemistry. The case was discussed with safe expert, Dr. Germaine Donaldson, and Dr. Elizabeth Romero, who will assist with the transvenous pacemaker placement at this time. DO Sarah Beth Oropeza , 07:03 PM , 07:17 PM
[2018-04-19 21:16] LABS: ABG Base Excess -4.7 mmol/L (-2-2); ABG PCO2 40 mmHg (38-42); ABG PO2 62 mmHG (61-120)
[2018-04-19] MEDS ORDERED: Insulin Regular (For Infusion) 100 UNIT in Sodium Chlor 0.9% Inj 99 ML IV.CONT PRN (21:16)
--- NOTE | 2018-04-19 21:53 | ECG ---
Date Performed: 04/19/2018 Time Performed: 17:56:35 PTAGE: 62 years EKG: ATRIAL FIBRILLATION WITH VERY SLOW VENTRICULAR RESPONSE RIGHT BUNDLE BRANCH BLOCK ABNORMAL ECG PREVIOUS TRACING : 04/19/2018 17.53 Since the previous tracing, no significant change noted DOCTOR: Curtis Joshi Interpretating Date/Time 04/19/2018 21:52:20
--- NOTE | 2018-04-19 21:55 | ECG ---
Date Performed: 04/19/2018 Time Performed: 17:53:36 PTAGE: 62 years EKG: POSSIBLE ATRIAL FIBRILLATION WITH SLOW VENTRICULAR RESPONSE RIGHT BUNDLE BRANCH BLOCK ABNOR MAL ECG PREVIOUS TRACING : 04/19/2018 16.56 Compared to previous tracing, paced beats no longer presen t DOCTOR: Curtis Joshi Interpretating Date/Time 04/19/2018 21:53:34
[2018-04-19] MEDS ORDERED: Sodium Bicarbonate 8.4% Inj 50 MEQ/50 ML Syringe IV.PUSH ONE (22:00)
[2018-04-19] MEDS ORDERED: Sodium Polystyrene Sulfonate/Sorbitol Liq 15 GM/60 ML UDC PO ONE (22:00)
--- NOTE | 2018-04-19 22:00 | ECG ---
Date Performed: 04/19/2018 Time Performed: 16:56:15 PTAGE: 62 years EKG: ATRIAL FIBRILLATION VENTRICULAR PACING PREVIOUS TRACING : 09/16/2017 22.31 Compared to previous tracing, SR no longer present DOCTOR: Curtis Joshi Interpretating Date/Time 04/19/2018 21:58:11
--- NOTE | 2018-04-19 22:17 | MH ---
cc: Zander Merritt MD DATE OF ADMISSION: 04/19/2018 HISTORY OF PRESENT ILLNESS: The patient is a 62-year-old male with a past medical history of hypertension, diabetes mellitus, chronic kidney disease, seizure disorder, diastolic congestive heart failure, right bundle branch block and closed head injury. He was brought in to [facility] ED for generalized weakness and symptomatic bradycardia. The patient had an echocardiogram in September, which showed an EF of 65-70%, trace MR and trace TR. He took his antihypertensive medications, which include diltiazem 240 mg 2 tablets, hydralazine 100 mg, Lopressor 100 mg, losartan 100 mg and clonidine 0.1 mg, and then later developed lightheadedness and fatigue. EMS was contacted and on arrival, he was found bradycardic with a heart rate of 24 and systolic blood pressure of 90. The patient was weak and somewhat confused. He was given atropine, which did not improve his heart rate. The patient was placed on transcutaneous pacing at heart rate of 60. He denies any chest pain, palpitations, orthopnea or PND. His laboratory data is significant for acute renal failure with a potassium 6.8, BUN 52 and creatinine 2.86. He was seen by Dr. Nick Moss from cardiology service and was taken emergently to the photo lab specialist where he underwent transvenous pacemaker placement. He was also treated for hyperkalemia with IV insulin, calcium, and sodium bicarbonate. A repeat BMP showed a potassium of 5.9 from 6.8 and a slight increase in his renal dysfunction with a creatinine of 3.1 from 2.86 on arrival. The patient was transferred to CV ICU and is currently on a nonrebreather mask with saturation of 95% and blood pressure of 165/79. The patient is awake, reports shortness of breath. He was given Lasix 40 mg IV push x1 now. He denies any nausea, vomiting or abdominal pain. In addition, he denies any cough or constitutional symptoms. PAST MEDICAL HISTORY: Significant for hypertension, diabetes mellitus, closed head injury, seizure disorder with last episode in 1977, right bundle branch block, diastolic congestive heart failure, chronic kidney disease. PAST SURGICAL HISTORY: Status post right shoulder surgery for removal of melanoma. FAMILY HISTORY: Noncontributory to current presentation. SOCIAL HISTORY: Nonsmoker. Nondrinker. ALLERGIES: MULTIPLE WHICH INCLUDE LEVAQUIN, PENICILLIN, METFORMIN, AZITHROMYCIN. MEDICATIONS AT HOME: Include: 1. Clonidine. 2. Diltiazem. 3. Glipizide. 4. Hydralazine. 5. Losartan. 6. Metoprolol. REVIEW OF SYSTEMS: As per HPI. The rest of the review of systems is unremarkable. PHYSICAL EXAMINATION: GENERAL: A 62-year-old male lying in bed, in mild respiratory distress. VITAL SIGNS: Temperature 97.8, pulse of 79, blood pressure 165/79, saturation 95% on a nonrebreather. HEENT: Atraumatic, normocephalic. Pupils are equal, round and reactive to light and accommodation. Extraocular muscles are intact. Conjunctivae pink. Nonicteric sclerae. Oral mucosa within normal. NECK: Supple. No JVD, adenopathy or thyromegaly. Trachea in the midline. CARDIOVASCULAR: Regular rate and rhythm. Normal S1, S2. No murmurs, rubs or gallops noted. PULMONARY: Bilateral equal air entry with a few coarse breath sounds and scattered wheezing. ABDOMEN: Soft, obese, nontender. No distention. Positive bowel sounds. EXTREMITIES: No cyanosis or clubbing. 1-2+ edema. NEUROLOGIC: No focal sensory deficit. LABORATORY DATA: Sodium 137, potassium 6.8, chloride 106, CO2 20, BUN 52, creatinine 2.86, glucose of 398. Repeat BMP: Sodium 137, potassium 5.9, chloride 106, CO2 20, BUN 51, creatinine 3.1, glucose 405. WBC 9.4, hemoglobin 10.2, hematocrit 30. RADIOGRAPHIC STUDIES: Chest x-ray showed mild failure. IMPRESSION: 1. Respiratory insufficiency. 2. Symptomatic bradyarrhythmia, multifactorial, likely secondary to hyperkalemia and multiple atrioventricular mike agents. 3. Hyperkalemia. 4. Acute renal failure. 5. Hyperglycemia. 6. History of diabetes mellitus. 7. History of hypertension. 8. Chronic kidney disease. 9. Diastolic congestive heart failure. RECOMMENDATIONS: 1. Monitor neuro status closely and avoid any sedatives. 2. Continue with oxygen and maintain sats above 92%. 3. Bronchodilators in the form of DuoNeb every 4 hours plus every 2 hours p.r.n. for shortness of breath. 4. Check ABG. If there is any worsening in respiratory status or clinical condition, we will proceed with intubation and mechanical ventilation. 5. Monitor heart rate and blood pressure closely and maintain MAP greater than 65 mmHg. The patient is status post transvenous pacemaker placement. Case discussed with Dr. Moss from cardiology. 6. We will obtain 2-D echo to evaluate LV function. Hold off antihypertensive medications. 7. Monitor renal function, I's and O's and avoid nephrotoxins. The patient was treated for hyperkalemia in the ED with repeat potassium 5.9 from 6.8. Will give additional IV regular insulin, bicarbonate, calcium and Kayexalate. 8. We will obtain ultrasound of the kidneys. Case discussed with Dr. Kapoor, the patient's bounty trapper, and we will hold off on hemodialysis at this time. 9. He was given Lasix 40 mg IV x1 earlier today. 10. Keep n.p.o. and placed on Protonix 40 mg daily for gastrointestinal prophylaxis. 11. Monitor for signs of infection, which include fever and WBC. Mora culture if spikes a fever. 12. Will place on insulin drip, log #1, for glycemic control. 13. GI prophylaxis with Protonix 40 mg daily and DVT prophylaxis with SCDs for now. Critical care time 60 minutes, excluding procedures. MD FARIDA Quinonez/neha , 09:34 PM , 09:49 PM
--- NOTE | 2018-04-19 23:25 | MA ---
cc: Elizabeth Romero MD DATE: 04/19/2018 DATE OF PROCEDURE: 04/19/2018. PREOPERATIVE DIAGNOSIS: Complete heart block. POSTOPERATIVE DIAGNOSIS: Successful implantation of a 6-Belizean balloon pacemaker via the right IJ. PROCEDURES PERFORMED: Successful implantation of a temporary balloon tipped pacemaker via the right IJ. ASSISTING PHYSICIAN: Nick Moss. INDICATIONS: In brief, Mr. James Dixon is a 62-year-old gentleman who presented with complete heart block after an ingestion of high dose of diltiazem. He was found to have complete heart block with underlying escape rhythm. Subsequently, decision was made to place a temporary pacemaker. Please see consult note for further details. DESCRIPTION OF PROCEDURE: After discussion of risks, benefits, and alternatives, the patient signed informed consent. He was brought to the catheterization suite in stable fasting nonsedated state. He was sterilely prepped and draped in the usual fashion, sedated with IV fentanyl with 1% lidocaine solution was used for local anesthesia. Using ultrasound guidance, we used a micropuncture needle kit and placed a 6-Belizean sheath into the right IJ using a modified Seldinger technique. We then placed a 6-Belizean balloon tip temporary pacemaker wire and floated into the right ventricle. We ensured that we had adequate capture. Our final settings showed that we had a sensitivity of 10 and 8 milliamps, 5 milliamps at a rate of 80. The patient tolerated the procedure well without any complications. We placed a Biopatch at the termination of the procedure. PROCEDURE SUMMARY: Placement of a temporary pacemaker via the right IJ. PLAN: The patient will be monitored in the ICU setting. We will continue to manage him. Thank you for allowing me to participate in the care of Mr. James Dixon. Please feel free to contact me with any questions regarding his care. Elizabeth Romero MD ADP/te/do , 08:26 PM , 08:32 PM MTDAustin
[2018-04-19] MEDS: RESP: Albuterol Concentrated 2.5 MG/0.5 ML Neb NEB ONE (23:28)
[2018-04-20] MEDS ORDERED: Insulin NovoLIN Regular Correctional Sugar Inj SQ SCH
[2018-04-20] MEDS: Pantoprazole Inj 40 MG Vial IV.PUSH SCH ×2 (00:45→09:01)
[2018-04-20] MEDS ORDERED: Chlorhexidine Gluconate 2% 1 Pack (2 Cloths) TOPICAL PRN (04:00)
[2018-04-20 04:13] LABS: Baso # (Auto) 0.1 th/mm3 (0.0-0.2); Baso % (Auto) 0.8 % (0.0-2.0); Eos % (Auto) 0.4 % (0.0-4.0); Hematocrit 34.1 % (39.0-51.0); Hemoglobin 11.4 gm/dL (13.0-17.0); Lymph # (Auto) 0.9 th/mm3 (1.0-4.8); Lymph % (Auto) 9.5 % (9.0-44.0); Mean Corpuscular HGB Conc 33.4 % (32.0-36.0); Mean Corpuscular Hemoglobin 29.9 pg (27.0-34.0); Mean Corpuscular Volume 89.4 fL (80.0-100.0); Mean Platelet Volume 7.8 fL (7.0-11.0); Mono # (Auto) 0.8 th/mm3 (0.0-0.9); Mono % (Auto) 8.4 % (0.0-8.0); Neut % (Auto) 80.9 % (16.0-70.0); Platelet Count 170 th/mm3 (150-450); Red Blood Count 3.82 mil/mm3 (4.50-5.90); Red Cell Distribution Width 15.6 % (11.6-17.2); White Blood Count 9.9 th/mm3 (4.0-11.0)
[2018-04-20] MEDS: Chlorhexidine Gluconate 2% 1 Pack (2 Cloths) TOPICAL SCH (04:27)
[2018-04-20 04:32] LABS: Alanine Aminotransferase 82 U/L (12-78); Albumin 2.7 g/dL (3.4-5.0); Alkaline Phosphatase 84 U/L (45-117); Anion Gap 10 meq/L (5-15); Aspartate Aminotransferase 50 U/L (15-37); Blood Urea Nitrogen 49 mg/dL (7-18); Calcium 8.4 mg/dL (8.5-10.1); Carbon Dioxide 28.4 meq/L (21.0-32.0); Chloride 108 meq/L (98-107); Glomerular Filtration Rate 21 mL/min (>89); Glucose,Random 163 mg/dL (74-106); Potassium 4.9 meq/L (3.5-5.1); Sodium 146 meq/L (136-145); Total Protein 6.8 g/dL (6.4-8.2); Valproic Acid 27 mcg/mL (50-100)
[2018-04-20] MEDS ORDERED: Dextrose 50% in Water 50 ML Vial IV.PUSH PRN (07:21)
--- NOTE | 2018-04-20 07:23 | P.PNCC ---
Subjective Subjective Remarks/Hospital Course: The patient is a 62-year-old male with a past medical history of hypertension, diabetes mellitus, chronic kidney disease, seizure disorder, diastolic congestive heart failure, right bundle branch block and closed head injury. He was brought in to [facility] ED for generalized weakness and symptomatic bradycardia. The patient had an echocardiogram in September, which showed an EF of 65-70%, trace MR and trace TR. He took his antihypertensive medications, which include diltiazem 240 mg 2 tablets, hydralazine 100 mg, Lopressor 100 mg, losartan 100 mg and clonidine 0.1 mg, and then laterdeveloped lightheadedness and fatigue. EMS was contacted and on arrival, he was found bradycardic with a heart rate of 24 and systolic blood pressure of 90. The patient was weak and somewhat confused. He was given atropine, which did not improve his heart rate. The patient was placed on transcutaneous pacing at heart rate of 60. He denies any chest pain, palpitations, orthopnea or PND. His laboratory data is significant for acute renal failure with a potassium 6.8, BUN 52 and creatinine 2.86. He was seen by Dr. Nick Moss from cardiology service and was taken emergently to the flower shop laborer/designer where he underwent transvenous pacemaker placement. He was also treated for hyperkalemia with IV insulin, calcium, and sodium bicarbonate. A repeat BMP showed a potassium of 5.9 from 6.8 and a slight increase in his renal dysfunction with a creatinine of 3.1 from 2.86 on arrival. The patient was transferred to CV ICU and is currently on a nonrebreather mask with saturation of 95% and blood pressure of 165/79. The patient is awake, reports shortness of breath. He was given Lasix 40 mg IV push x1 now. He denies any nausea, vomiting or abdominal pain. In addition, he denies any cough or constitutional symptoms. SUBJ 04/20: Patient lying in bed appears comfortable currently on nasal cannula. Heart rate is 85-90 not paced. Currently in sinus rhythm. Remains on insulin infusion. Objective Vital Signs / I&O: Vital Signs 04/19/18 17:05 04/19/18 18:44 04/19/18 20:45 Temperature 97.8 F Pulse Rate 59 L 70 Respiratory Rate 24 21 Blood Pressure 103/58 L 98/56 L Pulse Oximetry 96 95 86 L 04/19/18 20:50 04/19/18 21:00 04/19/18 21:02 Temperature Pulse Rate 89 80 79 Respiratory Rate 30 H 18 Blood Pressure 156/66 H Pulse Oximetry 86 L 95 04/19/18 21:30 04/19/18 23:00 04/20/18 00:23 Temperature 97.9 F 98.6 F Pulse Rate 79 78 79 Respiratory Rate 22 18 16 Blood Pressure 151/47 H 163/93 H Pulse Oximetry 86 L 99 04/20/18 03:00 04/20/18 03:49 Temperature 98.7 F Pulse Rate 78 81 Respiratory Rate 18 14 Blood Pressure 138/79 Pulse Oximetry 94 L Intake & Output 04/19/18 04/20/18 04/20/18 18:59 06:59 18:59 Intake Total 490 / 490 Output Total 5900 / 5900 Balance -5410 / -5410 Weight 86.636 kg 86.5 kg Intake: IV 90 / 90 Calcium Gluconate Inj 1 GM In 90 / 90 NS Inj 100 ML @ 110 mls/hr IV. SIG ONCE ONE Rx#:[id number] Oral 400 / 400 Output: Urine Amount (Catheter) 5900 / 5900 Indwelling Urethral Catheter 5900 / 5900 Other: Date of Last Bowel Movement 04/20/18 Result Diagrams: 04/20/18 04:07 04/20/18 04:07 Objective Remarks: GENERAL: A 62-year-old male lying in bed, in mild respiratory distress. Overall appears comfortable HEENT: Atraumatic, normocephalic. Pupils are equal, round and reactive to light and accommodation. Extraocular muscles are intact. Conjunctivae pink. Nonicteric sclerae. Oral mucosa within normal. NECK: Supple. No JVD, adenopathy or thyromegaly. Trachea in the midline. CARDIOVASCULAR: Regular rate and rhythm. Normal S1, S2. No murmurs, rubs or gallops noted. Right IJ introducer and pacer wires in place. Currently not paced. Heart rate 80-90 bpm PULMONARY: Bilateral equal air entry with a few coarse breath sounds and scattered wheezing. ABDOMEN: Soft, obese, nontender. No distention. Positive bowel sounds. EXTREMITIES: No cyanosis or clubbing. 1+ edema. NEUROLOGIC: Alert awake oriented no focal deficits Assessment and Plan - Assessment and Plan Plan: IMPRESSION: Symptomatic bradyarrhythmia, multifactorial, likely secondary to hyperkalemia and multiple atrioventricular mike agents-Resolved Hyperkalemia. Acute renal failure. Respiratory insufficiency. Hyperglycemia. History of diabetes mellitus. History of hypertension. Chronic kidney disease. Diastolic congestive heart failure. RECOMMENDATIONS: 1. Monitor neuro status closely and avoid any sedatives. 2. Continue with oxygen and maintain sats above 92%. 3. Bronchodilators in the form of DuoNeb every 4 hours plus every 2 hours p.r.n. for shortness of breath. 4. Clinically improved and good diuresis with IV Lasix. 5. The patient is status post transvenous pacemaker placement. Case discussed with Dr. Moss from cardiology. Currently not requiring any pacing. May remove temporary pacer defer to cardiology 6. 2-D echo to evaluate LV function. Hold off antihypertensive medications. 7. Monitor renal function, I's and O's and avoid nephrotoxins. The patient was treated for hyperkalemia in the ED with repeat potassium 4.9 from 6.8. Medically treated with IV regular insulin, bicarbonate, calcium and Kayexalate. 8. Case discussed with , the patient's exercise scientist, and we will hold off on hemodialysis at this time. 9. He was given Lasix 40 mg IV x1 yesterday. 10. N.p.o. and placed on Protonix 40 mg daily for gastrointestinal prophylaxis. Start ADA, cardiac diet 11. Monitor for signs of infection, which include fever and WBC. Mora culture if spikes a fever. 12. Currently on on insulin drip, log #1, for glycemic control. DC insulin drip start medium insulin sliding scale, Levemir 5 units every 12 13. GI prophylaxis with Protonix 40 mg daily and DVT prophylaxis with SCDs for now. Level 3 Consult hospitalist to assume care in a.m. If cardiology removed temporary pacemaker, transfer to [facility] with telemetry
[2018-04-20] MEDS: Divalproex 250 MG DR Tablet PO SCH ×3 (09:01→18:27)
--- NOTE | 2018-04-20 09:04 | P.PNCA ---
Subjective Interval history: Patient seen and examined. Feels much better. Back to baseline. No chest pain, dyspnea or lightheadedness. Tele reviewed and patient had return of baseline rhythm, sinus with RBBB, HR 90s at around 0200. Temp pacemaker was turned off. SBP elevated this AM to 170s with home anti-hypertensive agents held. Medications and Allergies Active Medications: Active Medications Albuterol (Duoneb Neb (Prn)) 1 ampul NEB Q2HR NEB PRN PRN Reason: WHEEZING Albuterol (Duoneb Neb (Jay)) 1 ampul NEB Q4HR NEB JAY Last Admin: 04/20/18 07:29 Dose: 1 ampul Bisacodyl (Dulcolax Supp) 10 mg RECTAL DAILY PRN PRN Reason: SEVERE CONSITIPATION Chlorhexidine Gluconate (Chlorhexidine 2% Cloth) 3 pack TOPICAL DAILY@0400 JAY Stop: 04/25/18 03:59 Last Admin: 04/20/18 04:27 Dose: 3 pack Chlorhexidine Gluconate (Chlorhexidine 2% Cloth) 3 pack TOPICAL DAILY@0400 PRN PRN Reason: Extra cloth needed Stop: 04/25/18 03:59 Dextrose (D50w Vial) 50 ml IV.PUSH UNSCH PRN PRN Reason: PER HYPOGLYCEMIA PROTOCOL Dextrose (D50w Vial) 50 ml IV.PUSH UNSCH PRN PRN Reason: PER HYPOGLYCEMIA PROTOCOL Dextrose (D50w Vial) 50 ml IV.PUSH UNSCH PRN PRN Reason: PER HYPOGLYCEMIA PROTOCOL Divalproex Sodium (Depakote Dr) 250 mg PO TID JAY Glucagon (Glucagon Inj) 1 mg OTHER PRN PRN PRN Reason: for Hypoglycemia Protocol Glucagon (Glucagon Inj) 1 mg OTHER PRN PRN PRN Reason: for Hypoglycemia Protocol Insulin Aspart (Novolog Insulin Correctional Sugar Inj) 0 unit SQ Q6HR JAY; Protocol Insulin Detemir (Levemir Inj) 5 unit SQ BID JAY Lactulose (Lactulose Liq) 30 ml PO DAILY PRN PRN Reason: SEVERE CONSITIPATION Pantoprazole Sodium (Protonix Inj) 40 mg IV.PUSH DAILY JAY Last Admin: 04/20/18 00:45 Dose: Not Given Sennosides (Senokot) 17.2 mg PO Q12H PRN PRN Reason: Moderate Constipation Sodium Chloride (Ns Flush) 2 ml IV.FLUSH PRN PRN PRN Reason: FLUSH AFTER USING IV ACCESS Sodium Chloride (Ns Flush) 2 ml IV.FLUSH BID JAY Last Admin: 04/19/18 21:45 Dose: 2 ml Allergies Allergy/AdvReac Type Severity Reaction Status Date / Time levofloxacin Allergy Severe Rash Verified 04/12/18 09:36 penicillin G Allergy Severe blistery Verified 04/12/18 09:36 rash metformin Allergy Intermediate Diarrhea Verified 04/12/18 09:36 azithromycin Allergy Mild Itching Verified 04/12/18 09:36 all antibiotics except keflex Allergy Severe Hives Uncoded 04/12/18 09:36 Home Medications Medication Instructions Recorded Confirmed Type albuterol sulfate [Ventolin HFA] 1 puff INHALATION Q4-6H PRN 04/11/18 04/12/18 History cholecalciferol (vitamin D3) 5,000 unit PO DAILY 04/11/18 04/12/18 History [Vitamin D3] clonidine HCl 0.1 mg PO BID 04/11/18 04/12/18 History diltiazem HCl 480 mg PO DAILY 04/11/18 04/12/18 History divalproex 250 mg PO TID 04/11/18 04/20/18 History furosemide 20 mg PO DAILY 04/11/18 04/12/18 History glipizide 10 mg PO BID 04/11/18 04/12/18 History hydralazine 100 mg PO TID 04/11/18 04/12/18 History latanoprost 1 drp RIGHT EYE QPM 04/11/18 04/12/18 History losartan 100 mg PO DAILY 04/11/18 04/12/18 History metoprolol succinate 100 mg PO DAILY 04/11/18 04/12/18 History timolol maleate 1 drp EACH EYE DAILY 04/11/18 04/12/18 History Physical Exam Vital signs: Vital Signs 04/19/18 17:05 04/19/18 18:44 04/19/18 20:45 Temperature 97.8 F Pulse Rate 59 L 70 Respiratory Rate 24 21 Blood Pressure 103/58 L 98/56 L Pulse Oximetry 96 95 86 L 04/19/18 20:50 04/19/18 21:00 04/19/18 21:02 Temperature Pulse Rate 89 80 79 Respiratory Rate 30 H 18 Blood Pressure 156/66 H Pulse Oximetry 86 L 95 04/19/18 21:30 04/19/18 23:00 04/20/18 00:23 Temperature 97.9 F 98.6 F Pulse Rate 79 78 79 Respiratory Rate 22 18 16 Blood Pressure 151/47 H 163/93 H Pulse Oximetry 86 L 99 04/20/18 03:00 04/20/18 03:49 04/20/18 07:00 Temperature 98.7 F Pulse Rate 78 81 83 Respiratory Rate 18 14 Blood Pressure 138/79 Pulse Oximetry 94 L 04/20/18 07:30 Temperature Pulse Rate 85 Respiratory Rate 16 Blood Pressure Pulse Oximetry 97 Intake & Output 04/19/18 04/20/18 04/20/18 18:59 06:59 18:59 Intake Total 490 / 490 Output Total 5900 / 5900 Balance -5410 / -5410 Weight 86.636 kg 86.5 kg Intake: IV NovoLIN R (IV Infusion) 100 10 / 10 UNIT In NS Inj 99 ML @ Per Protocol IV.CONT TITRATE PRN Rx #:[id number] Calcium Gluconate Inj 1 GM In NS Inj 100 ML @ 110 mls/hr IV. SIG ONCE ONE Rx#:[id number] Oral 400 / 400 Output: Urine Amount (Catheter) 5900 / 5900 Indwelling Urethral Catheter 5900 / 5900 Other: Date of Last Bowel Movement 04/20/18 04/19/18 - Urinary Catheter Management Indwelling Urethral Catheter Cath placed during this visit: yes Reason for continuing: Hourly intake/output Insertion date: 04/19/18 Insertion time: 21:07 Results 04/20/18 04:07 04/20/18 04:07 Cardiac Enzymes 04/19/18 04/19/18 04/19/18 Range/Units 17:08 17:08 20:21 AST 27 59 H (15-37) U/L Troponin I Less than 0.02 L (0.02-0.05) ng/mL B-Natriuretic Peptide 121 H (0-100) pg/mL 04/20/18 Range/Units 04:07 AST 50 H (15-37) U/L Troponin I (0.02-0.05) ng/mL B-Natriuretic Peptide (0-100) pg/mL Coagulation 04/19/18 04/19/18 Range/Units 17:08 17:08 PT 10.4 (9.8-11.6) sec APTT 24.7 (24.3-30.1) sec B-Natriuretic Peptide 121 H (0-100) pg/mL CBC 04/19/18 04/20/18 Range/Units 17:08 04:07 WBC 9.4 9.9 (4.0-11.0) th/mm3 RBC 3.35 L 3.82 L (4.50-5.90) mil/mm3 Hgb 10.2 L 11.4 L (13.0-17.0) gm/dL Hct 30.7 L 34.1 L (39.0-51.0) % Plt Count 192 170 (150-450) th/mm3 Neut # (Auto) 6.9 8.0 H (1.8-7.7) th/mm3 Lymph # (Auto) 1.2 0.9 L (1.0-4.8) th/mm3 [place] # (Auto) 0.8 0.8 (0.0-0.9) th/mm3 Eos # (Auto) 0.4 0.0 (0.0-0.4) th/mm3 Baso # (Auto) 0.1 0.1 (0.0-0.2) th/mm3 Comprehensive Metabolic Panel 04/19/18 04/19/18 04/19/18 Range/Units 17:08 20:21 23:52 Sodium 137 137 (136-145) meq/L Potassium 6.8 H* 5.9 H D 5.2 H (3.5-5.1) meq/L Chloride 106 106 (98-107) meq/L Carbon Dioxide 20.3 L 20.6 L (21.0-32.0) meq/L BUN 52 H 51 H (7-18) mg/dL Creatinine 2.86 H 3.11 H (0.60-1.30) mg/dL Calcium 7.7 L 8.1 L (8.5-10.1) mg/dL AST 27 59 H (15-37) U/L ALT 37 73 (12-78) U/L Alkaline Phosphatase 68 78 (45-117) U/L Total Protein 6.0 L 6.3 L (6.4-8.2) g/dL Albumin 2.4 L 2.5 L (3.4-5.0) g/dL 04/20/18 Range/Units 04:07 Sodium 146 H (136-145) meq/L Potassium 4.9 (3.5-5.1) meq/L Chloride 108 H (98-107) meq/L Carbon Dioxide 28.4 (21.0-32.0) meq/L BUN 49 H (7-18) mg/dL Creatinine 3.07 H (0.60-1.30) mg/dL Calcium 8.4 L (8.5-10.1) mg/dL AST 50 H (15-37) U/L ALT 82 H (12-78) U/L Alkaline Phosphatase 84 (45-117) U/L Total Protein 6.8 (6.4-8.2) g/dL Albumin 2.7 L (3.4-5.0) g/dL Intake and Output 04/19/18 04/20/18 04/20/18 22:59 06:59 14:59 Intake Total 490 / 490 Output Total 1075 / 1075 4825 / 4825 Balance -1075 / -1075 -4335 / -4335 Intake: IV NovoLIN R (IV Infusion) 100 / 10 UNIT In NS Inj 99 ML @ Per Protocol IV.CONT TITRATE PRN Rx #:[id number] Calcium Gluconate Inj 1 GM In NS Inj 100 ML @ 110 mls/hr IV. SIG ONCE ONE Rx#:[id number] Oral 400 / 400 Output: Urine Amount (Catheter) 1075 / 1075 4825 / 4825 Indwelling Urethral Catheter 1075 / 1075 4825 / 4825 Other: Date of Last Bowel Movement 04/20/18 04/19/18 Weight 86.636 kg 86.5 kg - Imaging and Cardiology Imaging: Impressions Chest X-Ray 04/19/18 17:03 CONCLUSION: No acute cardiopulmonary disease.
[2018-04-20] MEDS: Insulin Detemir Inj 1,000 UNIT/10 ML Vial SQ SCH ×2 (09:15→21:05)
[2018-04-20] MEDS: amLODIPine 10 MG Tablet PO SCH (09:35)
[2018-04-20] MEDS: RESP: Albuterol Concentrated 2.5 MG/0.5 ML Neb NEB ONE (11:00)
[2018-04-20] MEDS: Insulin NovoLOG Aspart Correctional Sugar Inj SQ SCH ×2 (11:36→18:27)
[2018-04-20] MEDS: hydrALAZINE HCl Inj 20 MG/ML Vial IV.PUSH PRN ×3 (11:44→20:05)
--- NOTE | 2018-04-20 15:31 | ECHRPT ---
Indication: SOB CONCLUSIONS Normal left ventricular size. Mild concentric left ventricular hypertrophy. The left ventricular systolic function is normal with an estimated ejection fraction in the range of 60-65%. Mitral annular calcification is present. Trace mitral valve regurgitation. Aortic valve sclerosis is present. BP: / HR: Rhythm: MEASUREMENTS (Male / Female) Normal Values Technical Quality: 2D ECHO LV Diastolic Diameter PLAX 4.8 cm 4.2 - 5.9 / 3.9 - 5.3 cm LV Systolic Diameter PLAX 3.4 cm IVS Diastolic Thickness 1.4 cm 0.6 - 1.0 / 0.6 - 0.9 cm LVPW Diastolic Thickness 1.1 cm 0.6 - 1.0 / 0.6 - 0.9 cm LV Relative Wall Thickness 0.5 RV Internal Dim ED PLAX 2.4 cm LA Systolic Diameter LX 3.7 cm 3.0 - 4.0 / 2.7 - 3.8 cm M-MODE Aortic Root Diameter MM 3.2 cm AV Cusp Separation MM 2.0 cm DOPPLER Mitral E Point Velocity 85.1 cm/s Mitral A Point Velocity 128.0 cm/s Mitral E to A Ratio 0.7 TR Peak Velocity 225.0 cm/s TR Peak Gradient 20.3 mmHg Right Atrial Pressure 10.0 mmHg Pulmonary Artery Systolic Pressu 30.3 mmHg Right Ventricular Systolic Press 30.3 mmHg FINDINGS LEFT VENTRICLE Normal left ventricular size. Mild concentric left ventricular hypertrophy. The left ventricular systolic function is normal with an estimated ejection fraction in the range of 60-65%. RIGHT VENTRICLE Normal right ventricular size and systolic function. LEFT ATRIUM The left atrial size is normal. RIGHT ATRIUM The right atrial size is normal. ATRIAL SEPTUM Normal atrial septal thickness without atrial level shunting by limited color doppler interrogation. AORTA The aortic root and proximal ascending aorta are normal in size on limited imaging. MITRAL VALVE Mitral annular calcification is present. Trace mitral valve regurgitation. AORTIC VALVE Aortic valve sclerosis is present. TRICUSPID VALVE Structurally normal tricuspid valve. No tricuspid valve stenosis or regurgitation. PULMONARY VALVE No pulmonary valve regurgitation or stenosis. VESSELS The inferior vena cava is normal in size. PERICARDIUM No pericardial effusion. Armaan Gonzalez MD, FACC, FSCAI (Electronically Signed) Final Date:20 April 2018 15:30
--- NOTE | 2018-04-20 22:58 | P.CONNP ---
History of Present Illness Service: Nephrology Consult date: 04/20/18 Requesting Physician: Zander Merritt Reason for Consult: Acute and chronic kidney disease Primary Care Provider: Miladys Almaguer MD Family Provider: Miladys Almaguer MD History of Present Illness: Patient is a 62-year-old white male with history of chronic kidney disease baseline creatinine around 1.8, hypertension, diabetes he is admitted with weakness tiredness and had severe bradycardia and was in complete heart block after taking 2 pills of diltiazem 240 mg, clonidine and metoprolol, he developed lightheadedness and severe weakness of he called EMS and was brought to the hospital with his pulse was 24 and systolic blood pressure was in 90s, he required temporary pacemaker placement and his blood pressure has improved, urine output improved his creatinine is 3.07 improved from 3.11 admitting creatinine of 2.8 He is passing more urine denies any dysuria or burning. He has excision of right shoulder melanoma recently on 04/12/2018. Review of Systems Constitutional: Reports weakness Eyes: Reports blind spots, Reports loss of vision Ears, Nose, Mouth, and Throat: Reports other Cardiovascular: Reports shortness of breath, Reports slow heart rate Respiratory: Reports shortness of breath Gastrointestinal: Reports other Genitourinary: Reports other Musculoskeletal: Reports muscle weakness Neurologic: Reports weakness PMFSH - History History Provided By: Patient, Family Member - Medical History Medical History: Medical History (Last Reviewed 04/20/18 @ 22:51 by Immanuel Kapoor MD) Blind left eye Brain contusion Chronic kidney disease Diabetes mellitus Epilepsy Heart murmur Hx of head injury without skull fracture Hypertension Malignant melanoma Neuropathy Vertigo - Surgical History Surgical History: Surgical History (Last Updated 04/20/18 @ 23:01 by Immanuel Kapoor MD) History of melanoma excision History of kidney surgery Hx of tonsillectomy - Social History I have reviewed the patient's Social History: Yes - Tobacco History Second Hand Smoke Exposure: No Smoking Status: Never smoker - Alcohol History How Often Do You Have a Drink Containing Alcohol: Never - Substance Use History Substance History: No History of Abuse - Travel History Recent Travel in the [place] Within the Last 8 Weeks: No Recent Travel Out of the Country Within the Last 8 Weeks: No - Immunization History Tetanus Immunization: >5 Years Medications and Allergies Active Medications: Active Medications Albuterol (Duoneb Neb (Prn)) 1 ampul NEB Q2HR NEB PRN PRN Reason: WHEEZING Albuterol (Duoneb Neb (Jay)) 1 ampul NEB Q4HR NEB [facility] Last Admin: 04/20/18 20:19 Dose: 1 ampul Amlodipine Besylate (Norvasc) 10 mg PO DAILY [facility] Last Admin: 04/20/18 09:35 Dose: 10 mg Bisacodyl (Dulcolax Supp) 10 mg RECTAL DAILY PRN PRN Reason: SEVERE CONSITIPATION Chlorhexidine Gluconate (Chlorhexidine 2% Cloth) 3 pack TOPICAL DAILY@0400 JAY Stop: 04/25/18 03:59 Last Admin: 04/20/18 04:27 Dose: 3 pack Chlorhexidine Gluconate (Chlorhexidine 2% Cloth) 3 pack TOPICAL DAILY@0400 PRN PRN Reason: Extra cloth needed Stop: 04/25/18 03:59 Clonidine HCl (Catapres) 0.1 mg PO Q8H [facility] Last Admin: 04/20/18 16:58 Dose: 0.1 mg Clonidine HCl (Catapres) 0.2 mg PO Q6H PRN PRN Reason: SBP >165 Dextrose (D50w Vial) 50 ml IV.PUSH UNSCH PRN PRN Reason: PER HYPOGLYCEMIA PROTOCOL Dextrose (D50w Vial) 50 ml IV.PUSH UNSCH PRN PRN Reason: PER HYPOGLYCEMIA PROTOCOL Dextrose (D50w Vial) 50 ml IV.PUSH UNSCH PRN PRN Reason: PER HYPOGLYCEMIA PROTOCOL Divalproex Sodium (Depakote Dr) 250 mg PO TID [facility] Last Admin: 04/20/18 18:27 Dose: 250 mg Glucagon (Glucagon Inj) 1 mg OTHER PRN PRN PRN Reason: for Hypoglycemia Protocol Glucagon (Glucagon Inj) 1 mg OTHER PRN PRN PRN Reason: for Hypoglycemia Protocol Hydralazine HCl (Apresoline) 100 mg PO TID [facility] Last Admin: 04/20/18 18:27 Dose: 100 mg Hydralazine HCl (Apresoline Inj) 20 mg IV.PUSH Q4H PRN PRN Reason: SBP >160 Last Admin: 04/20/18 20:05 Dose: 20 mg Insulin Aspart (Novolog Insulin Correctional Sugar Inj) 0 unit SQ Q6HR [facility]; Protocol Last Admin: 04/20/18 18:27 Dose: 2 unit Insulin Detemir (Levemir Inj) 5 unit SQ BID [facility] Last Admin: 04/20/18 21:05 Dose: 5 unit Lactulose (Lactulose Liq) 30 ml PO DAILY PRN PRN Reason: SEVERE CONSITIPATION Pantoprazole Sodium (Protonix Inj) 40 mg IV.PUSH DAILY [facility] Last Admin: 04/20/18 09:01 Dose: 40 mg Sennosides (Senokot) 17.2 mg PO Q12H PRN PRN Reason: Moderate Constipation Sodium Chloride (Ns Flush) 2 ml IV.FLUSH PRN PRN PRN Reason: FLUSH AFTER USING IV ACCESS Sodium Chloride (Ns Flush) 2 ml IV.FLUSH BID [facility] Last Admin: 04/20/18 21:06 Dose: 2 ml Allergies Allergy/AdvReac Type Severity Reaction Status Date / Time levofloxacin Allergy Severe Rash Verified 04/12/18 09:36 penicillin G Allergy Severe blistery Verified 04/12/18 09:36 rash metformin Allergy Intermediate Diarrhea Verified 04/12/18 09:36 azithromycin Allergy Mild Itching Verified 04/12/18 09:36 all antibiotics except keflex Allergy Severe Hives Uncoded 04/12/18 09:36 Home Medications Medication Instructions Recorded Confirmed Type albuterol sulfate [Ventolin HFA] 1 puff INHALATION Q4-6H PRN 04/11/18 04/20/18 History cholecalciferol (vitamin D3) 5,000 unit PO DAILY 04/11/18 04/20/18 History [Vitamin D3] clonidine HCl 0.1 mg PO BID 04/11/18 04/20/18 History diltiazem HCl 480 mg PO DAILY 04/11/18 04/20/18 History divalproex 250 mg PO TID 04/11/18 04/20/18 History furosemide 20 mg PO DAILY 04/11/18 04/20/18 History glipizide 10 mg PO BID 04/11/18 04/20/18 History hydralazine 100 mg PO TID 04/11/18 04/20/18 History latanoprost 1 drp RIGHT EYE QPM 04/11/18 04/20/18 History losartan 100 mg PO DAILY 04/11/18 04/20/18 History metoprolol succinate 100 mg PO DAILY 04/11/18 04/20/18 History timolol maleate 1 drp EACH EYE DAILY 04/11/18 04/20/18 History Exam Vital signs: Vital Signs 04/19/18 23:00 04/20/18 00:23 04/20/18 03:00 Temperature 98.6 F 98.7 F Pulse Rate 78 79 78 Respiratory Rate 18 16 18 Blood Pressure 163/93 H 138/79 Pulse Oximetry 99 94 L 04/20/18 03:49 04/20/18 07:00 04/20/18 07:30 Temperature 97.9 F Pulse Rate 81 88 85 Respiratory Rate 14 18 16 Blood Pressure 177/77 H Pulse Oximetry 97 97 04/20/18 08:00 04/20/18 11:00 04/20/18 11:19 Temperature 98.3 F Pulse Rate 92 H 91 H Respiratory Rate 18 18 Blood Pressure 171/91 H Pulse Oximetry 97 99 04/20/18 15:00 04/20/18 16:03 04/20/18 19:30 Temperature 97.4 F L 99.5 F Pulse Rate 97 H 97 H 100 H Respiratory Rate 18 17 18 Blood Pressure 152/73 H 179/83 H Pulse Oximetry 98 97 04/20/18 19:57 04/20/18 20:19 Temperature Pulse Rate 105 H Respiratory Rate 22 Blood Pressure Pulse Oximetry 97 Intake & Output 04/20/18 04/20/18 04/21/18 06:59 18:59 06:59 Intake Total 490 / 490 610 / 610 Output Total 5900 / 5900 2225 / 2225 Balance -5410 / -5410 -1615 / -1615 Weight 86.5 kg Intake: IV 10 NovoLIN R (IV Infusion) 100 10 / 10 UNIT In NS Inj 99 ML @ Per Protocol IV.CONT TITRATE PRN Rx #:[id number] NS Inj 1,000 ML @ 150 mls/hr IV 0 / 0 .CONT .Q6H40M [facility] Rx#:[id number] Calcium Gluconate Inj 1 GM In 90 / 90 NS Inj 100 ML @ 110 mls/hr IV. SIG ONCE ONE Rx#:[id number] Oral 400 / 400 600 / 600 Output: Urine Amount (Catheter) 5900 / 5900 2225 / 2225 Indwelling Urethral Catheter 5900 / 5900 2225 / 2225 Other: Date of Last Bowel Movement 04/20/18 04/20/18 04/20/18 # Bowel Movements 1 Narrative: GENERAL: Well-nourished, well-developed patient. SKIN: Warm and dry. HEAD: Normocephalic. EYES: No scleral icterus. No injection or drainage. NECK: Supple, trachea midline. No JVD or lymphadenopathy. CARDIOVASCULAR: Regular rate rhythm. RESPIRATORY: Breath sounds equal bilaterally. No accessory muscle use. GASTROINTESTINAL: Abdomen soft, non-tender, nondistended. EXTREMITIES: 1+ edema NEUROLOGICAL: Awake, alert, and oriented x 3. Non-focal. Results - Lab Results 04/20/18 04:07 04/20/18 04:07 Most recent lab results ABG pH 7.33 (7.380-7.420) L 04/19/18 21:08 ABG pCO2 40 mmHg (38-42) 04/19/18 21:08 ABG pO2 62 mmHG (61-120) 04/19/18 21:08 ABG HCO3 20 mmol/L (22-26) L 04/19/18 21:08 Calcium 8.4 mg/dL (8.5-10.1) L 04/20/18 04:07 Assessment and Plan - Assessment (1) Hypertension Code(s): I10 - Essential (primary) hypertension Status: Acute Plan: Hydralazine added along with Catapres (2) Bradyarrhythmia Code(s): I49.8 - Other specified cardiac arrhythmias Status: Acute Plan: Resolved diltiazem was discontinued and beta-abena was stopped (3) Acute hyperkalemia Code(s): E87.5 - Hyperkalemia Status: Acute (4) Acute renal failure Code(s): N17.9 - Acute kidney failure, unspecified Status: Acute Plan: Resolving with improvement in heart rate and blood pressure - Plan Patient has improved urine output and he responded well to Lasix, his blood pressure is still labile and hydralazine was added He has returned to his baseline rhythm Potassium has improved Patient is diuresing well renal functions continue to improve He was in cardiogenic shock initially which resolved Continue to observe for further improvement Follow BMP (1) Hypertension Qualifiers: Hypertension type: essential hypertension Qualified Code(s): I10 - Essential (primary) hypertension (4) Acute renal failure Qualifiers: Acute renal failure type: unspecified Qualified Code(s): N17.9 - Acute kidney failure, unspecified
[2018-04-21] MEDS: Insulin NovoLOG Aspart Correctional Sugar Inj SQ SCH ×5 (00:17→23:43)
[2018-04-21] MEDS: Chlorhexidine Gluconate 2% 1 Pack (2 Cloths) TOPICAL SCH (04:22)
[2018-04-21 04:23] LABS: Hematocrit 30.1 % (39.0-51.0); Hemoglobin 10.3 gm/dL (13.0-17.0); Mean Corpuscular HGB Conc 34.2 % (32.0-36.0); Mean Corpuscular Hemoglobin 30.4 pg (27.0-34.0); Mean Corpuscular Volume 88.7 fL (80.0-100.0); Mean Platelet Volume 8.3 fL (7.0-11.0); Platelet Count 151 th/mm3 (150-450); Red Blood Count 3.39 mil/mm3 (4.50-5.90); Red Cell Distribution Width 15.8 % (11.6-17.2); White Blood Count 11.9 th/mm3 (4.0-11.0)
[2018-04-21 04:37] LABS: Albumin 2.4 g/dL (3.4-5.0); Anion Gap 8 meq/L (5-15); Aspartate Aminotransferase 26 U/L (15-37); Blood Urea Nitrogen 47 mg/dL (7-18); Calcium 8.5 mg/dL (8.5-10.1); Chloride 105 meq/L (98-107); Glomerular Filtration Rate 20 mL/min (>89); Glucose,Random 166 mg/dL (74-106); Potassium 4.4 meq/L (3.5-5.1); Sodium 142 meq/L (136-145)
[2018-04-21 04:38] LABS: Alanine Aminotransferase 58 U/L (12-78)
[2018-04-21 04:40] LABS: Alkaline Phosphatase 73 U/L (45-117); Total Protein 6.6 g/dL (6.4-8.2)
--- NOTE | 2018-04-21 04:50 | XR ---
EXAM DATE: 04/21/2018 6:00 AM EDT AGE/SEX: 62 years / Male INDICATIONS: Shortness of breath CLINICAL DATA: This is the patient's subsequent encounter. Patient reports that signs and symptoms h ave been present for 2 days and indicates a pain score of Nonresponsive. MEDICAL/SURGICAL HISTORY: None. None. [place] [facility] [place]. . FINDINGS: Interval placement of right IJ central line with tip apparently projecting over the right ventricle. Improved aeration without significant focal parenchymal abnormality. Cardiomediastinal contours are w ithin normal limits. Remainder of exam is unchanged. CONCLUSION: 1. Right IJ central line apparently projecting over the right ventricle. This can be verified with o blique chest radiograph. 2. Improved lung aeration. Electronically signed by: Robin Manuel MD 04/21/2018 4:49 AM EDT
--- NOTE | 2018-04-21 08:17 | P.PNCA ---
Subjective Interval history: Feeling well today with no chest pain, shortness breath, lightheadedness, dizziness. Telemetry shows NSR. Kidney function remains impaired. BP better controlled but still elevated. Medications and Allergies Allergies Allergy/AdvReac Type Severity Reaction Status Date / Time levofloxacin Allergy Severe Rash Verified 04/12/18 09:36 penicillin G Allergy Severe blistery Verified 04/12/18 09:36 rash metformin Allergy Intermediate Diarrhea Verified 04/12/18 09:36 azithromycin Allergy Mild Itching Verified 04/12/18 09:36 all antibiotics except keflex Allergy Severe Hives Uncoded 04/12/18 09:36 Home Medications Medication Instructions Recorded Confirmed Type albuterol sulfate [Ventolin HFA] 1 puff INHALATION Q4-6H PRN 04/11/18 04/20/18 History cholecalciferol (vitamin D3) 5,000 unit PO DAILY 04/11/18 04/20/18 History [Vitamin D3] clonidine HCl 0.1 mg PO BID 04/11/18 04/20/18 History diltiazem HCl 480 mg PO DAILY 04/11/18 04/20/18 History divalproex 250 mg PO TID 04/11/18 04/20/18 History furosemide 20 mg PO DAILY 04/11/18 04/20/18 History glipizide 10 mg PO BID 04/11/18 04/20/18 History hydralazine 100 mg PO TID 04/11/18 04/20/18 History latanoprost 1 drp RIGHT EYE QPM 04/11/18 04/20/18 History losartan 100 mg PO DAILY 04/11/18 04/20/18 History metoprolol succinate 100 mg PO DAILY 04/11/18 04/20/18 History timolol maleate 1 drp EACH EYE DAILY 04/11/18 04/20/18 History Active Medications: Active Medications Albuterol (Duoneb Neb (Prn)) 1 ampul NEB Q2HR NEB PRN PRN Reason: WHEEZING Albuterol (Duoneb Neb (Jay)) 1 ampul NEB Q4HR NEB [facility] Last Admin: 04/21/18 03:51 Dose: Not Given Amlodipine Besylate (Norvasc) 10 mg PO DAILY [facility] Last Admin: 04/20/18 09:35 Dose: 10 mg Bisacodyl (Dulcolax Supp) 10 mg RECTAL DAILY PRN PRN Reason: SEVERE CONSITIPATION Chlorhexidine Gluconate (Chlorhexidine 2% Cloth) 3 pack TOPICAL DAILY@0400 [facility] Stop: 04/25/18 03:59 Last Admin: 04/21/18 04:22 Dose: 3 pack Chlorhexidine Gluconate (Chlorhexidine 2% Cloth) 3 pack TOPICAL DAILY@0400 PRN PRN Reason: Extra cloth needed Stop: 04/25/18 03:59 Clonidine HCl (Catapres) 0.1 mg PO Q8H [facility] Last Admin: 04/21/18 01:22 Dose: 0.1 mg Clonidine HCl (Catapres) 0.2 mg PO Q6H PRN PRN Reason: SBP >165 Last Admin: 04/20/18 22:46 Dose: 0.2 mg Dextrose (D50w Vial) 50 ml IV.PUSH UNSCH PRN PRN Reason: PER HYPOGLYCEMIA PROTOCOL Dextrose (D50w Vial) 50 ml IV.PUSH UNSCH PRN PRN Reason: PER HYPOGLYCEMIA PROTOCOL Dextrose (D50w Vial) 50 ml IV.PUSH UNSCH PRN PRN Reason: PER HYPOGLYCEMIA PROTOCOL Divalproex Sodium (Depakote Dr) 250 mg PO TID [facility] Last Admin: 04/20/18 18:27 Dose: 250 mg Glucagon (Glucagon Inj) 1 mg OTHER PRN PRN PRN Reason: for Hypoglycemia Protocol Glucagon (Glucagon Inj) 1 mg OTHER PRN PRN PRN Reason: for Hypoglycemia Protocol Hydralazine HCl (Apresoline) 100 mg PO TID [facility] Last Admin: 04/20/18 18:27 Dose: 100 mg Hydralazine HCl (Apresoline Inj) 20 mg IV.PUSH Q4H PRN PRN Reason: SBP >160 Last Admin: 04/20/18 20:05 Dose: 20 mg Insulin Aspart (Novolog Insulin Correctional Sugar Inj) 0 unit SQ Q6HR [facility]; Protocol Last Admin: 04/21/18 07:12 Dose: 2 unit Insulin Detemir (Levemir Inj) 5 unit SQ BID [facility] Last Admin: 04/20/18 21:05 Dose: 5 unit Lactulose (Lactulose Liq) 30 ml PO DAILY PRN PRN Reason: SEVERE CONSITIPATION Pantoprazole Sodium (Protonix Inj) 40 mg IV.PUSH DAILY [facility] Last Admin: 04/20/18 09:01 Dose: 40 mg Sennosides (Senokot) 17.2 mg PO Q12H PRN PRN Reason: Moderate Constipation Sodium Chloride (Ns Flush) 2 ml IV.FLUSH PRN PRN PRN Reason: FLUSH AFTER USING IV ACCESS Sodium Chloride (Ns Flush) 2 ml IV.FLUSH BID [facility] Last Admin: 04/20/18 21:06 Dose: 2 ml Physical Exam Vital signs: Vital Signs 04/20/18 11:00 04/20/18 11:19 04/20/18 15:00 Temperature 98.3 F 97.4 F L Pulse Rate 92 H 91 H 97 H Respiratory Rate 18 18 18 Blood Pressure 171/91 H 152/73 H Pulse Oximetry 99 98 04/20/18 16:03 04/20/18 19:00 04/20/18 19:30 Temperature 99.5 F Pulse Rate 97 H 97 H 100 H Respiratory Rate 17 18 Blood Pressure 179/83 H Pulse Oximetry 97 04/20/18 19:57 04/20/18 20:19 04/20/18 23:00 Temperature 98.9 F Pulse Rate 105 H 106 H Respiratory Rate 22 18 Blood Pressure 172/80 H Pulse Oximetry 97 97 04/21/18 00:00 04/21/18 00:15 04/21/18 03:00 Temperature Pulse Rate 106 H 100 H Respiratory Rate 18 22 Blood Pressure Pulse Oximetry 04/21/18 03:22 04/21/18 04:00 Temperature 100.1 F H Pulse Rate 100 H Respiratory Rate 18 18 Blood Pressure 149/60 H Pulse Oximetry 93 L Intake & Output 04/20/18 04/21/18 04/21/18 18:59 06:59 18:59 Intake Total 610 / 610 720 / 720 Output Total 222 / 2225 1100 / 1100 Balance -1615 / -1615 -380 / -380 Weight 188 lb 7.924 oz Intake: IV 10 / 10 NovoLIN R (IV Infusion) 100 10 / 10 UNIT In NS Inj 99 ML @ Per Protocol IV.CONT TITRATE PRN Rx #:[id number] NS Inj 1,000 ML @ 150 mls/hr IV 0 / 0 .CONT .Q6H40M [facility] Rx#:[id number] Oral 600 / 600 720 / 720 Output: Urine Amount (Catheter) 2224 / 2224 1100 / 1100 Indwelling Urethral Catheter 2225 / 2225 1100 / 1100 Other: Date of Last Bowel Movement 04/20/18 04/20/18 # Bowel Movements 1 Narrative: GENERAL: Well-developed well-nourished. In no acute distress. NECK: No carotid bruits. No JVD. R IJ sheath in place. CARDIOVASCULAR: Regular rate and rhythm. No murmur appreciated. RESPIRATORY: No accessory muscle use. Clear to auscultation. Breath sounds equal bilaterally. MUSCULOSKELETAL: No clubbing or cyanosis. No edema. NEUROLOGICAL: Awake and alert. Normal speech. - Urinary Catheter Management Indwelling Urethral Catheter Cath placed during this visit: yes Reason for continuing: Hourly intake/output Insertion date: 04/19/18 Insertion time: 21:07 Results 04/21/18 03:07 04/21/18 03:07 Cardiac Enzymes 04/19/18 04/19/18 04/19/18 Range/Units 17:08 17:08 20:21 AST 27 59 H (15-37) U/L Troponin I Less than 0.02 L (0.02-0.05) ng/mL B-Natriuretic Peptide 121 H (0-100) pg/mL 04/20/18 04/21/18 Range/Units 04:07 03:07 AST 50 H 26 (15-37) U/L Troponin I (0.02-0.05) ng/mL B-Natriuretic Peptide (0-100) pg/mL Coagulation 04/19/18 04/19/18 Range/Units 17:08 17:08 PT 10.4 (9.8-11.6) sec APTT 24.7 (24.3-30.1) sec B-Natriuretic Peptide 121 H (0-100) pg/mL CBC 04/19/18 04/20/18 04/21/18 Range/Units 17:08 04:07 03:07 WBC 9.4 9.9 11.9 H (4.0-11.0) th/mm3 RBC 3.35 L 3.82 L 3.39 L (4.50-5.90) mil/mm3 Hgb 10.2 L 11.4 L 10.3 L (13.0-17.0) gm/dL Hct 30.7 L 34.1 L 30.1 L (39.0-51.0) % Plt Count 192 170 151 (150-450) th/mm3 Neut # (Auto) 6.9 8.0 H (1.8-7.7) th/mm3 Lymph # (Auto) 1.2 0.9 L (1.0-4.8) th/mm3 George # (Auto) 0.8 0.8 (0.0-0.9) th/mm3 Eos # (Auto) 0.4 0.0 (0.0-0.4) th/mm3 Baso # (Auto) 0.1 0.1 (0.0-0.2) th/mm3 Comprehensive Metabolic Panel 04/19/18 04/19/18 04/19/18 Range/Units 17:08 20:21 23:52 Sodium 137 137 (136-145) meq/L Potassium 6.8 H* 5.9 H D 5.2 H (3.5-5.1) meq/L Chloride 106 106 (98-107) meq/L Carbon Dioxide 20.3 L 20.6 L (21.0-32.0) meq/L BUN 52 H 51 H (7-18) mg/dL Creatinine 2.86 H 3.11 H (0.60-1.30) mg/dL Calcium 7.7 L 8.1 L (8.5-10.1) mg/dL AST 27 59 H (15-37) U/L ALT 37 73 (12-78) U/L Alkaline Phosphatase 68 78 (45-117) U/L Total Protein 6.0 L 6.3 L (6.4-8.2) g/dL Albumin 2.4 L 2.5 L (3.4-5.0) g/dL 04/20/18 04/21/18 Range/Units 04:07 03:07 Sodium 146 H 142 (136-145) meq/L Potassium 4.9 4.4 (3.5-5.1) meq/L Chloride 108 H 105 (98-107) meq/L Carbon Dioxide 28.4 29.0 (21.0-32.0) meq/L BUN 49 H 47 H (7-18) mg/dL Creatinine 3.07 H 3.11 H (0.60-1.30) mg/dL Calcium 8.4 L 8.5 (8.5-10.1) mg/dL AST 50 H 26 (15-37) U/L ALT 82 H 58 (12-78) U/L Alkaline Phosphatase 84 73 (45-117) U/L Total Protein 6.8 6.6 (6.4-8.2) g/dL Albumin 2.7 L 2.4 L (3.4-5.0) g/dL Intake and Output 04/20/18 04/21/18 04/21/18 22:59 06:59 14:59 Intake Total 600 / 600 720 / 720 Output Total 2225 / 2225 1100 / 1100 Balance -1625 / -1625 -380 / -380 Intake: Oral 600 / 600 720 / 720 Output: Urine Amount (Catheter) 2225 / 2225 1100 / 1100 Indwelling Urethral Catheter 222 / 2225 1100 / 1100 Other: Date of Last Bowel Movement 04/20/18 04/20/18 # Bowel Movements 1 Weight 188 lb 7.924 oz - Imaging and Cardiology Imaging: Impressions Chest X-Ray 04/19/18 17:03 CONCLUSION: No acute cardiopulmonary disease. Chest X-Ray 04/21/18 06:00 CONCLUSION: 1. Right IJ central line apparently projecting over the right ventricle. This can be verified with oblique chest radiograph. 2. Improved lung aeration. Assessment and Plan - Plan Assessment: -Symptomatic Bradycardia with atrial asystole and ventricular escape in setting of hyperkalemia and multiple AVN agents, now s/p return of intrinsic sinus rhythm following transvenous pacing. -Hyperkalemia, resolved. likely was due to IVORY on CKD -HTN poorly controlled with home meds held. He will require large change in home regimen clearly with fewer AVN agents -IVORY on CKD, creatinine 3, baseline appears around 2. -mild diastolic CHF, breathing improved with Lasix Recommendations: - Continue hydralazine 100mg tid and amlodipine 10mg daily - Start atenolol 100 mg daily for BP control and if no issues on atenolol, can pull pacing wire later today - transfer to the [facility] - another dose of lasix 40mg iv x 1 today - Nephrology on board - rest per primary team. expected d/c tomorrow Discussed Condition With: Patient, hospitalist, Dr. Moss - Attending Attestation Patient seen and examined. Agree with above.
--- NOTE | 2018-04-21 08:46 | P.PNIM ---
Subjective Interval history: pt feels ok. no complaints eating breakfast. Physical Exam Vital signs: Vital Signs 04/20/18 11:00 04/20/18 11:19 04/20/18 15:00 Temperature 98.3 F 97.4 F L Pulse Rate 92 H 91 H 97 H Respiratory Rate 18 18 18 Blood Pressure 171/91 H 152/73 H Pulse Oximetry 99 98 04/20/18 16:03 04/20/18 19:00 04/20/18 19:30 Temperature 99.5 F Pulse Rate 97 H 97 H 100 H Respiratory Rate 17 18 Blood Pressure 179/83 H Pulse Oximetry 97 04/20/18 19:57 04/20/18 20:19 04/20/18 23:00 Temperature 98.9 F Pulse Rate 105 H 106 H Respiratory Rate 22 18 Blood Pressure 172/80 H Pulse Oximetry 97 97 04/21/18 00:00 04/21/18 00:15 04/21/18 03:00 Temperature Pulse Rate 106 H 100 H Respiratory Rate 18 22 Blood Pressure Pulse Oximetry 04/21/18 03:22 04/21/18 04:00 Temperature 100.1 F H Pulse Rate 100 H Respiratory Rate 18 18 Blood Pressure 149/60 H Pulse Oximetry 93 L Intake & Output 04/20/18 04/21/18 04/21/18 18:59 06:59 18:59 Intake Total 610 / 610 720 / 720 Output Total 2225 / 2225 1100 / 1100 Balance -1615 / -1615 -380 / -380 Weight 85.5 kg Intake: IV 10 / 10 NovoLIN R (IV Infusion) 100 10 / 10 UNIT In NS Inj 99 ML @ Per Protocol IV.CONT TITRATE PRN Rx #:[id number] NS Inj 1,000 ML @ 150 mls/hr IV 0 / 0 .CONT .Q6H40M [facility] Rx#:[id number] Oral 600 / 600 720 / 720 Output: Urine Amount (Catheter) 2225 / 2225 1100 / 1100 Indwelling Urethral Catheter 2225 / 2225 1100 / 1100 Other: Date of Last Bowel Movement 04/20/18 04/20/18 # Bowel Movements 1 heart reg lung good air entry kevin abd s/nt ext no edema right IJ - Urinary Catheter Management Indwelling Urethral Catheter Cath placed during this visit: yes Reason for continuing: Hourly intake/output Insertion date: 04/19/18 Insertion time: 21:07 Results - Labs CBC & Chem 7: 04/21/18 03:07 04/21/18 03:07 Laboratory Results - last 24 hr 04/20/18 04/20/18 04/20/18 08:58 11:26 17:02 WBC RBC Hgb Hct MCV MCH MCHC RDW Plt Count MPV Sodium Potassium Chloride Carbon Dioxide Anion Gap BUN Creatinine Estimated GFR POC Glucose 85 146 H 164 H Random Glucose Calcium Total Bilirubin AST ALT Alkaline Phosphatase Total Protein Albumin 04/21/18 04/21/18 04/21/18 00:08 03:07 03:07 WBC 11.9 H RBC 3.39 L Hgb 10.3 L Hct 30.1 L MCV 88.7 MCH 30.4 MCHC 34.2 RDW 15.8 Plt Count 151 MPV 8.3 Sodium 142 Potassium 4.4 Chloride 105 Carbon Dioxide 29.0 Anion Gap 8 BUN 47 H Creatinine 3.11 H Estimated GFR 20 L POC Glucose 255 H Random Glucose 166 H Calcium 8.5 Total Bilirubin 0.3 AST 26 ALT 58 Alkaline Phosphatase 73 Total Protein 6.6 Albumin 2.4 L 04/21/18 07:03 WBC RBC Hgb Hct MCV MCH MCHC RDW Plt Count MPV Sodium Potassium Chloride Carbon Dioxide Anion Gap BUN Creatinine Estimated GFR POC Glucose 169 H Random Glucose Calcium Total Bilirubin AST ALT Alkaline Phosphatase Total Protein Albumin - Imaging Impressions Chest X-Ray 04/21/18 06:00 CONCLUSION: 1. Right IJ central line apparently projecting over the right ventricle. This can be verified with oblique chest radiograph. 2. Improved lung aeration. Assessment and Plan - Assessment (1) Bradyarrhythmia Code(s): I49.8 - Other specified cardiac arrhythmias Status: Acute Plan: 1. symptomatic bradycardia. atrial asystole/ventricular rhythm. pt with hyperkalemia and on high dose ccb/bb. temporary TVP was placed. Back in sinus rhythm and k corrected cardiology managing htn medications pt currently placed on hydralazine/atenolol/norvasc 2. a/ckd nephrology following 3. dm 2 oha on hold on basal/bolus insulin for now. 4. low grade fever noted observe. would remove right IJ hayley when ok with cardiology. 5. diastolic chf.
[2018-04-21] MEDS: Divalproex 250 MG DR Tablet PO SCH ×3 (09:35→17:26)
[2018-04-21] MEDS: amLODIPine 10 MG Tablet PO SCH (09:35)
[2018-04-21] MEDS: Pantoprazole Inj 40 MG Vial IV.PUSH SCH (09:36)
[2018-04-21] MEDS: Insulin Detemir Inj 1,000 UNIT/10 ML Vial SQ SCH ×2 (09:36→21:15)
[2018-04-21] MEDS: Atenolol 100 MG Tablet PO SCH (09:59)
--- NOTE | 2018-04-21 16:23 | P.PNNP ---
Subjective Interval history: Patient is feeling okay Physical Exam Vital signs: Vital Signs 04/20/18 19:00 04/20/18 19:30 04/20/18 19:57 Temperature 99.5 F Pulse Rate 97 H 100 H Respiratory Rate 18 Blood Pressure 179/83 H Pulse Oximetry 97 97 04/20/18 20:19 04/20/18 23:00 04/21/18 00:00 Temperature 98.9 F Pulse Rate 105 H 106 H Respiratory Rate 22 18 18 Blood Pressure 172/80 H Pulse Oximetry 97 04/21/18 00:15 04/21/18 03:00 04/21/18 03:22 Temperature 100.1 F H Pulse Rate 106 H 100 H 100 H Respiratory Rate 22 18 Blood Pressure 149/60 H Pulse Oximetry 93 L 04/21/18 04:00 04/21/18 07:00 04/21/18 09:02 Temperature 98.5 F Pulse Rate 87 Respiratory Rate 18 20 Blood Pressure 157/78 H Pulse Oximetry 94 L 99 04/21/18 09:04 04/21/18 11:00 04/21/18 13:36 Temperature Pulse Rate 90 73 71 Respiratory Rate 18 21 18 Blood Pressure 122/73 Pulse Oximetry 95 04/21/18 15:00 Temperature 98.3 F Pulse Rate 74 Respiratory Rate 20 Blood Pressure 135/71 Pulse Oximetry 93 L Intake & Output 04/20/18 04/21/18 04/21/18 18:59 06:59 18:59 Intake Total 610 / 610 1370 / 1370 Output Total 2225 / 2225 1800 / 1800 Balance -1615 / -1615 -430 / -430 Weight 85.5 kg Intake: IV 10 / 10 NovoLIN R (IV Infusion) 100 10 / 10 UNIT In NS Inj 99 ML @ Per Protocol IV.CONT TITRATE PRN Rx #:[id number] NS Inj 1,000 ML @ 150 mls/hr IV 0 / 0 .CONT .[id number] [facility] Rx#:[id number] Oral 600 / 600 1370 / 1370 Output: Urine 700 / 700 Urine Amount (Catheter) 2225 / 2225 1100 / 1100 Indwelling Urethral Catheter 2224 / 222 1100 / 1100 Other: Date of Last Bowel Movement 04/20/18 04/20/18 04/20/18 # Bowel Movements 1 Narrative: GENERAL: Well-developed well-nourished. In no acute distress. NECK: No carotid bruits. No JVD. R IJ sheath in place. CARDIOVASCULAR: Regular rate and rhythm. No murmur appreciated. RESPIRATORY: No accessory muscle use. Clear to auscultation. Breath sounds equal bilaterally. MUSCULOSKELETAL: No clubbing or cyanosis. No edema. NEUROLOGICAL: Awake and alert. Normal speech. - Urinary Catheter Management Indwelling Urethral Catheter Cath placed during this visit: yes, but has since been removed by the nurse Reason for continuing: Hourly intake/output Insertion date: 04/19/18 Insertion time: 21:07 Removal date: 04/21/18 Removal time: 10:24 Assessment and Plan - Assessment (1) Hypertension Code(s): I10 - Essential (primary) hypertension Status: Acute Qualifiers: Hypertension type: essential hypertension Qualified Code(s): I10 - Essential (primary) hypertension Plan: Hydralazine added along with Catapres (2) Bradyarrhythmia Code(s): I49.8 - Other specified cardiac arrhythmias Status: Acute Plan: Resolved diltiazem was discontinued and beta-abena was stopped (3) Acute hyperkalemia Code(s): E87.5 - Hyperkalemia Status: Acute (4) Acute renal failure Code(s): N17.9 - Acute kidney failure, unspecified Status: Acute Qualifiers: Acute renal failure type: unspecified Qualified Code(s): N17.9 - Acute kidney failure, unspecified Plan: Resolving with improvement in heart rate and blood pressure - Plan Patient has improved urine output and he responded well to Lasix, his blood pressure is improved and He has returned to his baseline rhythm creatinine again 3.11 Potassium has improved Patient is diuresing well renal functions continue to improve He was in cardiogenic shock initially which resolved Continue to observe for further improvement Follow BMP
[2018-04-22] MEDS: Insulin NovoLOG Aspart Correctional Sugar Inj SQ SCH ×4 (06:28→23:46)
[2018-04-22] MEDS: Chlorhexidine Gluconate 2% 1 Pack (2 Cloths) TOPICAL SCH (06:29)
[2018-04-22] MEDS: Pantoprazole Inj 40 MG Vial IV.PUSH SCH (08:40)
[2018-04-22] MEDS: Insulin Detemir Inj 1,000 UNIT/10 ML Vial SQ SCH ×2 (08:41→20:44)
[2018-04-22] MEDS: amLODIPine 10 MG Tablet PO SCH (08:42)
[2018-04-22] MEDS: Atenolol 100 MG Tablet PO SCH (08:42)
[2018-04-22] MEDS: Divalproex 250 MG DR Tablet PO SCH ×3 (08:42→17:34)
--- NOTE | 2018-04-22 08:58 | P.PNCA ---
Subjective Interval history: Telemetry continues to show sinus rhythm with right bundle branch block, similar to yesterday. BP still high but better controlled than yesterday. Patient denies any chest pain, shortness of breath. He does complain of some dysuria, currently being worked up by primary team. Good urine output after Lasix dose yesterday. Lower extremity swelling improved. Medications and Allergies Allergies Allergy/AdvReac Type Severity Reaction Status Date / Time levofloxacin Allergy Severe Rash Verified 04/12/18 09:36 penicillin G Allergy Severe blistery Verified 04/12/18 09:36 rash metformin Allergy Intermediate Diarrhea Verified 04/12/18 09:36 azithromycin Allergy Mild Itching Verified 04/12/18 09:36 all antibiotics except keflex Allergy Severe Hives Uncoded 04/12/18 09:36 Home Medications Medication Instructions Recorded Confirmed Type albuterol sulfate [Ventolin HFA] 1 puff INHALATION Q4-6H PRN 04/11/18 04/20/18 History cholecalciferol (vitamin D3) 5,000 unit PO DAILY 04/11/18 04/20/18 History [Vitamin D3] clonidine HCl 0.1 mg PO BID 04/11/18 04/20/18 History diltiazem HCl 480 mg PO DAILY 04/11/18 04/20/18 History divalproex 250 mg PO TID 04/11/18 04/20/18 History furosemide 20 mg PO DAILY 04/11/18 04/20/18 History glipizide 10 mg PO BID 04/11/18 04/20/18 History hydralazine 100 mg PO TID 04/11/18 04/20/18 History latanoprost 1 drp RIGHT EYE QPM 04/11/18 04/20/18 History losartan 100 mg PO DAILY 04/11/18 04/20/18 History metoprolol succinate 100 mg PO DAILY 04/11/18 04/20/18 History timolol maleate 1 drp EACH EYE DAILY 04/11/18 04/20/18 History Active Medications: Active Medications Albuterol (Duoneb Neb (Prn)) 1 ampul NEB Q2HR NEB PRN PRN Reason: WHEEZING Albuterol (Duoneb Neb (Jay)) 1 ampul NEB Q4HR NEB JAY Last Admin: 04/22/18 03:34 Dose: 1 ampul Amlodipine Besylate (Norvasc) 10 mg PO DAILY [facility] Last Admin: 04/22/18 08:42 Dose: 10 mg Atenolol (Tenormin) 100 mg PO DAILY [facility] Last Admin: 04/22/18 08:42 Dose: 100 mg Bisacodyl (Dulcolax Supp) 10 mg RECTAL DAILY PRN PRN Reason: SEVERE CONSITIPATION Chlorhexidine Gluconate (Chlorhexidine 2% Cloth) 3 pack TOPICAL DAILY@0400 JAY Stop: 04/25/18 03:59 Last Admin: 04/22/18 06:29 Dose: Not Given Chlorhexidine Gluconate (Chlorhexidine 2% Cloth) 3 pack TOPICAL DAILY@0400 PRN PRN Reason: Extra cloth needed Stop: 04/25/18 03:59 Clonidine HCl (Catapres) 0.2 mg PO Q6H PRN PRN Reason: SBP >165 Last Admin: 04/21/18 21:22 Dose: 0.2 mg Clonidine HCl (Catapres) 0.1 mg PO Q12HR PRN PRN Reason: BLOOD PRESSURE MANAGEMENT Dextrose (D50w Vial) 50 ml IV.PUSH UNSCH PRN PRN Reason: PER HYPOGLYCEMIA PROTOCOL Dextrose (D50w Vial) 50 ml IV.PUSH UNSCH PRN PRN Reason: PER HYPOGLYCEMIA PROTOCOL Dextrose (D50w Vial) 50 ml IV.PUSH UNSCH PRN PRN Reason: PER HYPOGLYCEMIA PROTOCOL Divalproex Sodium (Depakote Dr) 250 mg PO TID [facility] Last Admin: 04/22/18 08:42 Dose: 250 mg Glucagon (Glucagon Inj) 1 mg OTHER PRN PRN PRN Reason: for Hypoglycemia Protocol Glucagon (Glucagon Inj) 1 mg OTHER PRN PRN PRN Reason: for Hypoglycemia Protocol Hydralazine HCl (Apresoline) 100 mg PO TID [facility] Last Admin: 04/22/18 08:42 Dose: 100 mg Hydralazine HCl (Apresoline Inj) 20 mg IV.PUSH Q4H PRN PRN Reason: SBP >160 Last Admin: 04/20/18 20:05 Dose: 20 mg Insulin Aspart (Novolog Insulin Correctional Sugar Inj) 0 unit SQ Q6HR [facility]; Protocol Last Admin: 04/22/18 06:28 Dose: 2 unit Insulin Detemir (Levemir Inj) 5 unit SQ BID [facility] Last Admin: 04/22/18 08:41 Dose: 5 unit Lactulose (Lactulose Liq) 30 ml PO DAILY PRN PRN Reason: SEVERE CONSITIPATION Pantoprazole Sodium (Protonix Inj) 40 mg IV.PUSH DAILY [facility] Last Admin: 04/22/18 08:40 Dose: 40 mg Sennosides (Senokot) 17.2 mg PO Q12H PRN PRN Reason: Moderate Constipation Sodium Chloride (Ns Flush) 2 ml IV.FLUSH PRN PRN PRN Reason: FLUSH AFTER USING IV ACCESS Sodium Chloride (Ns Flush) 2 ml IV.FLUSH BID [facility] Last Admin: 04/22/18 08:42 Dose: 2 ml Physical Exam Vital signs: Vital Signs 04/21/18 09:02 04/21/18 09:04 04/21/18 11:00 Temperature Pulse Rate 90 73 Respiratory Rate 18 21 Blood Pressure 122/73 Pulse Oximetry 99 95 04/21/18 13:36 04/21/18 15:00 04/21/18 16:25 Temperature 98.3 F Pulse Rate 71 74 73 Respiratory Rate 18 20 18 Blood Pressure 135/71 Pulse Oximetry 93 L 04/21/18 19:00 04/21/18 19:30 04/21/18 19:55 Temperature 99.2 F Pulse Rate 77 79 76 Respiratory Rate 18 18 Blood Pressure 162/83 H Pulse Oximetry 97 04/21/18 19:56 04/21/18 20:00 04/21/18 23:00 Temperature Pulse Rate 76 Respiratory Rate Blood Pressure Pulse Oximetry 97 98 04/21/18 23:22 04/21/18 23:40 04/22/18 03:00 Temperature 99.0 F Pulse Rate 73 74 66 Respiratory Rate 15 18 Blood Pressure 153/84 H Pulse Oximetry 94 L 04/22/18 03:28 04/22/18 03:34 Temperature 99.0 F Pulse Rate 69 71 Respiratory Rate 20 15 Blood Pressure 148/69 H Pulse Oximetry 95 Intake & Output 04/21/18 04/22/18 04/22/18 18:59 06:59 18:59 Intake Total 1370 / 1370 600 / 600 Output Total 2200 / 2200 800 / 800 Balance -830 / -830 -200 / -200 Weight 188 lb 7.924 oz Intake: Oral 1370 / 1370 600 / 600 Output: Urine 1100 / 1100 800 / 800 Urine Amount (Catheter) 1100 / 1100 Indwelling Urethral Catheter 1100 / 1100 Other: Date of Last Bowel Movement 04/20/18 04/20/18 Narrative: GENERAL: Well-developed well-nourished. In no acute distress. NECK: No carotid bruits. No JVD. R IJ sheath in place. CARDIOVASCULAR: Regular rate and rhythm. No murmur appreciated. RESPIRATORY: No accessory muscle use. Clear to auscultation. Breath sounds equal bilaterally. MUSCULOSKELETAL: No clubbing or cyanosis. No edema. NEUROLOGICAL: Awake and alert. Normal speech. - Urinary Catheter Management Indwelling Urethral Catheter Cath placed during this visit: yes, but has since been removed by the nurse Reason for continuing: Hourly intake/output Insertion date: 04/19/18 Insertion time: 21:07 Removal date: 04/21/18 Removal time: 10:24 Results 04/21/18 03:07 04/21/18 03:07 Cardiac Enzymes 04/21/18 Range/Units 03:07 AST 26 (15-37) U/L CBC 04/21/18 Range/Units 03:07 WBC 11.9 H (4.0-11.0) th/mm3 RBC 3.39 L (4.50-5.90) mil/mm3 Hgb 10.3 L (13.0-17.0) gm/dL Hct 30.1 L (39.0-51.0) % Plt Count 151 (150-450) th/mm3 Comprehensive Metabolic Panel 04/21/18 Range/Units 03:07 Sodium 142 (136-145) meq/L Potassium 4.4 (3.5-5.1) meq/L Chloride 105 (98-107) meq/L Carbon Dioxide 29.0 (21.0-32.0) meq/L BUN 47 H (7-18) mg/dL Creatinine 3.11 H (0.60-1.30) mg/dL Calcium 8.5 (8.5-10.1) mg/dL AST 26 (15-37) U/L ALT 58 (12-78) U/L Alkaline Phosphatase 73 (45-117) U/L Total Protein 6.6 (6.4-8.2) g/dL Albumin 2.4 L (3.4-5.0) g/dL Intake and Output 04/21/18 04/22/18 04/22/18 22:59 06:59 14:59 Intake Total 650 / 650 600 / 600 Output Total 1100 / 1100 800 / 800 Balance -450 / -450 -200 / -200 Intake: Oral 650 / 650 600 / 600 Output: Urine 1100 / 1100 800 / 800 Other: Date of Last Bowel Movement 04/20/18 04/20/18 Weight 188 lb 7.924 oz - Imaging and Cardiology Imaging: Impressions Chest X-Ray 04/21/18 06:00 CONCLUSION: 1. Right IJ central line apparently projecting over the right ventricle. This can be verified with oblique chest radiograph. 2. Improved lung aeration. Assessment and Plan - Plan Assessment: -Symptomatic Bradycardia with atrial asystole and ventricular escape in setting of hyperkalemia and multiple AVN agents, now s/p return of intrinsic sinus rhythm following transvenous pacing. -Hyperkalemia, resolved. likely was due to IVORY on CKD -HTN poorly controlled with home meds held. He will require large change in home regimen clearly with fewer AVN agents -IVORY on CKD, creatinine 3, at baseline per nephrology -mild diastolic CHF, breathing improved with Lasix Recommendations: - Continue hydralazine 100mg tid, atenolol 100 mg daily, amlodipine 10mg daily - He would like benefit from ARB, would resume when okay with nephrology - Can pull pacing wire later today - transfer to tele - rest per primary team. DC planning Discussed Condition With: Patient, RN, Dr. Weber, Dr. Moss - Attending Attestation agree with above
--- NOTE | 2018-04-22 09:24 | P.PNIM ---
Subjective Interval history: pt c/o dysuria after hubbard removed Physical Exam Vital signs: Vital Signs 04/21/18 11:00 04/21/18 13:36 04/21/18 15:00 Temperature 98.3 F Pulse Rate 73 71 74 Respiratory Rate 21 18 20 Blood Pressure 122/73 135/71 Pulse Oximetry 95 93 L 04/21/18 16:25 04/21/18 19:00 04/21/18 19:30 Temperature 99.2 F Pulse Rate 73 77 79 Respiratory Rate 18 18 Blood Pressure 162/83 H Pulse Oximetry 97 04/21/18 19:55 04/21/18 19:56 04/21/18 20:00 Temperature Pulse Rate 76 Respiratory Rate 18 Blood Pressure Pulse Oximetry 97 98 04/21/18 23:00 04/21/18 23:22 04/21/18 23:40 Temperature 99.0 F Pulse Rate 76 73 74 Respiratory Rate 15 18 Blood Pressure 153/84 H Pulse Oximetry 94 L 04/22/18 03:00 04/22/18 03:28 04/22/18 03:34 Temperature 99.0 F Pulse Rate 66 69 71 Respiratory Rate 20 15 Blood Pressure 148/69 H Pulse Oximetry 95 04/22/18 07:00 Temperature 97.9 F Pulse Rate 83 Respiratory Rate 16 Blood Pressure 173/94 H Pulse Oximetry Intake & Output 04/21/18 04/22/18 04/22/18 18:59 06:59 18:59 Intake Total 1370 / 1370 600 / 600 Output Total 2200 / 2200 800 / 800 Balance -830 / -830 -200 / -200 Weight 85.5 kg Intake: Oral 1370 / 1370 600 / 600 Output: Urine 1100 / 1100 800 / 800 Urine Amount (Catheter) 1100 / 1100 Indwelling Urethral Catheter 1100 / 1100 Other: Date of Last Bowel Movement 04/20/18 04/20/18 04/20/18 heart reg lung cta abd s/nt ext no edema right IJ - Urinary Catheter Management Indwelling Urethral Catheter Cath placed during this visit: yes, but has since been removed by the nurse Reason for continuing: Hourly intake/output Insertion date: 04/19/18 Insertion time: 21:07 Removal date: 04/21/18 Removal time: 10:24 Results - Labs CBC & Chem 7: 04/21/18 03:07 04/21/18 03:07 Laboratory Results - last 24 hr 04/21/18 04/21/18 04/21/18 11:12 16:14 23:39 POC Glucose 240 H 267 H 179 H 04/22/18 06:22 POC Glucose 156 H Assessment and Plan - Assessment (1) Bradyarrhythmia Code(s): I49.8 - Other specified cardiac arrhythmias Status: Acute Plan: 1. symptomatic bradycardia. atrial asystole/ventricular rhythm. pt with hyperkalemia and on high dose ccb/bb. temporary TVP was placed. Back in sinus rhythm and k corrected cardiology managing htn medications pt currently placed on hydralazine/atenolol/norvasc dc when ok with cardiology check u/a for dysuria after hubbard removed 2. a/ckd nephrology following 3. dm 2 oha on hold on basal/bolus insulin for now. 4. low grade fever noted observe. would remove right IJ hayley when ok with cardiology. check u/a 5. diastolic chf.
[2018-04-22 09:34] LABS: Bacteria,Urine Many /hpf; Bilirubin,Urine Negative (Negative); Clarity,Urine Cloudy (Clear); Color,Urine Yellow (Yellw/Straw); Glucose,Urine (UA) 150 mg/dL (Negative); Hyaline Casts,Urine 3 /lpf (0-3); Leukocyte Esterase,Urine Moderate (Negative); Nitrite,Urine Negative (Negative); Specific Gravity,Urine 1.014 (1.002-1.035)
--- NOTE | 2018-04-22 16:03 | P.PNNP ---
Subjective Interval history: Patient c/o dysuria Physical Exam Vital signs: Vital Signs 04/21/18 16:25 04/21/18 19:00 04/21/18 19:30 Temperature 99.2 F Pulse Rate 73 77 79 Respiratory Rate 18 18 Blood Pressure 162/83 H Pulse Oximetry 97 04/21/18 19:55 04/21/18 19:56 04/21/18 20:00 Temperature Pulse Rate 76 Respiratory Rate 18 Blood Pressure Pulse Oximetry 97 98 04/21/18 23:00 04/21/18 23:22 04/21/18 23:40 Temperature 99.0 F Pulse Rate 76 73 74 Respiratory Rate 15 18 Blood Pressure 153/84 H Pulse Oximetry 94 L 04/22/18 03:00 04/22/18 03:28 04/22/18 03:34 Temperature 99.0 F Pulse Rate 66 69 71 Respiratory Rate 20 15 Blood Pressure 148/69 H Pulse Oximetry 95 04/22/18 07:00 04/22/18 09:37 04/22/18 11:00 Temperature 97.9 F 98.3 F Pulse Rate 83 75 72 Respiratory Rate 16 18 16 Blood Pressure 173/94 H 136/73 Pulse Oximetry 04/22/18 13:22 Temperature Pulse Rate 79 Respiratory Rate 18 Blood Pressure Pulse Oximetry Intake & Output 04/21/18 04/22/18 04/22/18 18:59 06:59 18:59 Intake Total 1370 / 1370 600 / 600 100 / 100 Output Total 2200 / 2200 800 / 800 Balance -830 / -830 -200 / -200 100 / 100 Weight 85.5 kg Intake: IV 100 / 100 Rocephin Inj 1,000 MG In NS Inj 100 / 100 100 ML @ 200 mls/hr IV.SIG Q24H [facility] Rx#:[id number] Oral 1370 / 1370 600 / 600 Output: Urine 1100 / 1100 800 / 800 Urine Amount (Catheter) 1100 / 1100 Indwelling Urethral Catheter 1100 / 1100 Other: Date of Last Bowel Movement 04/20/18 04/20/18 04/20/18 Narrative: GENERAL: Well-developed well-nourished. In no acute distress. NECK: No carotid bruits. No JVD. R IJ sheath in place. CARDIOVASCULAR: Regular rate and rhythm. No murmur appreciated. RESPIRATORY: No accessory muscle use. Clear to auscultation. Breath sounds equal bilaterally. MUSCULOSKELETAL: No clubbing or cyanosis. No edema. NEUROLOGICAL: Awake and alert. Normal speech. - Urinary Catheter Management Indwelling Urethral Catheter Cath placed during this visit: yes, but has since been removed by the nurse Reason for continuing: Hourly intake/output Insertion date: 04/19/18 Insertion time: 21:07 Removal date: 04/21/18 Removal time: 10:24 Assessment and Plan - Assessment (1) Hypertension Code(s): I10 - Essential (primary) hypertension Status: Acute Qualifiers: Hypertension type: essential hypertension Qualified Code(s): I10 - Essential (primary) hypertension Plan: Hydralazine added along with Catapres (2) Bradyarrhythmia Code(s): I49.8 - Other specified cardiac arrhythmias Status: Acute Plan: Resolved diltiazem was discontinued and beta-abena was stopped (3) Acute hyperkalemia Code(s): E87.5 - Hyperkalemia Status: Acute (4) Acute renal failure Code(s): N17.9 - Acute kidney failure, unspecified Status: Acute Qualifiers: Acute renal failure type: unspecified Qualified Code(s): N17.9 - Acute kidney failure, unspecified Plan: Resolving with improvement in heart rate and blood pressure - Plan Patient has improved urine output and he responded well to Lasix, his blood pressure is improved and He has returned to his baseline rhythm creatinine yesterday 3.11 Potassium has improved Patient is diuresing well renal functions continue to improve UTI treated with Ceftriaxone. He was in cardiogenic shock initially which resolved Continue to observe for further improvement Follow BMP
[2018-04-22] MEDS: hydrALAZINE HCl Inj 20 MG/ML Vial IV.PUSH PRN (20:45)
[2018-04-23] MEDS: Chlorhexidine Gluconate 2% 1 Pack (2 Cloths) TOPICAL SCH (05:51)
[2018-04-23] MEDS: Insulin NovoLOG Aspart Correctional Sugar Inj SQ SCH ×4 (07:29→23:49)
[2018-04-23 07:34] LABS: Carbon Dioxide 25.7 meq/L (21.0-32.0); Potassium 4.3 meq/L (3.5-5.1)
[2018-04-23] MEDS: Atenolol 100 MG Tablet PO SCH (08:17)
[2018-04-23] MEDS: amLODIPine 10 MG Tablet PO SCH (08:17)
[2018-04-23] MEDS: Insulin Detemir Inj 1,000 UNIT/10 ML Vial SQ SCH ×2 (08:17→20:52)
[2018-04-23] MEDS: Divalproex 250 MG DR Tablet PO SCH ×3 (08:17→17:47)
[2018-04-23] MEDS: Pantoprazole Inj 40 MG Vial IV.PUSH SCH (08:18)
--- NOTE | 2018-04-23 10:10 | P.PNIM ---
Subjective Interval history: still dysuria given prn iv hydralazine and clonidine .2mg yesterday for breakthrough bp Physical Exam Vital signs: Vital Signs 04/22/18 11:00 04/22/18 13:22 04/22/18 15:00 Temperature 98.3 F 99.6 F Pulse Rate 72 79 77 Respiratory Rate 16 18 16 Blood Pressure 136/73 161/78 H Pulse Oximetry 04/22/18 16:57 04/22/18 19:00 04/22/18 20:25 Temperature 100.9 F H Pulse Rate 80 84 86 Respiratory Rate 18 16 16 Blood Pressure 167/80 H Pulse Oximetry 94 L 04/22/18 23:00 04/22/18 23:35 04/23/18 00:00 Temperature 100.3 F H Pulse Rate 81 83 Respiratory Rate 16 18 16 Blood Pressure 135/64 Pulse Oximetry 04/23/18 03:00 04/23/18 04:00 04/23/18 04:05 Temperature 99.9 F H Pulse Rate 71 73 Respiratory Rate 16 16 16 Blood Pressure 145/72 H Pulse Oximetry 04/23/18 07:00 04/23/18 07:28 04/23/18 08:00 Temperature 98.8 F Pulse Rate 79 Respiratory Rate 14 Blood Pressure 141/68 H Pulse Oximetry 95 97 95 Intake & Output 04/22/18 04/23/18 04/23/18 18:59 06:59 18:59 Intake Total 1200 / 1200 480 / 480 Output Total 1225 / 1225 710 / 710 Balance -25 / -25 -230 / -230 Weight 86 kg Intake: IV 100 / 100 Rocephin Inj 1,000 MG In NS Inj 100 / 100 100 ML @ 200 mls/hr IV.SIG Q24H [facility] Rx#:[id number] Oral 1100 / 1100 480 / 480 Output: Urine 1225 / 1225 710 / 710 Other: # Voids 7 2 Date of Last Bowel Movement 04/20/18 04/20/18 04/20/18 heart reg lung cta abd s/nt ext no edema right ij - Urinary Catheter Management Indwelling Urethral Catheter Cath placed during this visit: yes, but has since been removed by the nurse Reason for continuing: Hourly intake/output Insertion date: 04/19/18 Insertion time: 21:07 Removal date: 04/21/18 Removal time: 10:24 Results - Labs CBC & Chem 7: 04/21/18 03:07 04/23/18 05:40 Laboratory Results - last 24 hr 04/22/18 04/22/18 04/22/18 11:32 17:26 20:39 Sodium Potassium Chloride Carbon Dioxide Anion Gap BUN Creatinine Estimated GFR POC Glucose 202 H 195 H 274 H Random Glucose Calcium 04/22/18 04/23/18 04/23/18 23:36 05:40 07:14 Sodium 136 Potassium 4.3 Chloride 98 Carbon Dioxide 25.7 Anion Gap 12 BUN 58 H Creatinine 2.79 H Estimated GFR 23 L POC Glucose 287 H 199 H Random Glucose 125 H Calcium 9.0 Assessment and Plan - Assessment (1) Bradyarrhythmia Code(s): I49.8 - Other specified cardiac arrhythmias Status: Acute Plan: 1. symptomatic bradycardia. atrial asystole/ventricular rhythm. pt with hyperkalemia and on high dose ccb/bb. temporary TVP was placed. Back in sinus rhythm and k corrected cardiology managing htn medications pt currently placed on hydralazine/atenolol/norvasc still requiring iv hydralazine and po clonidine breakthrough... ...I will switch norvasc to procardia and reassess 2. a/ckd nephrology following. impoving 3. dm 2 oha on hold on basal/bolus insulin for now. 4. low grade fever noted uti noted. f/u cx. cont rocephin remove IJ line today 5. diastolic chf.
--- NOTE | 2018-04-23 11:00 | P.PNCA ---
Subjective Interval history: HR in 60-70, SBP 150s No symptoms Medications and Allergies Active Medications: Active Medications Albuterol (Duoneb Neb (Prn)) 1 ampul NEB Q2HR NEB PRN PRN Reason: WHEEZING Albuterol (Duoneb Neb (Jay)) 1 ampul NEB Q4HR NEB [facility] Last Admin: 04/23/18 07:27 Dose: 1 ampul Atenolol (Tenormin) 100 mg PO DAILY [facility] Last Admin: 04/23/18 08:17 Dose: 100 mg Bisacodyl (Dulcolax Supp) 10 mg RECTAL DAILY PRN PRN Reason: SEVERE CONSITIPATION Chlorhexidine Gluconate (Chlorhexidine 2% Cloth) 3 pack TOPICAL DAILY@0400 [facility] Stop: 04/25/18 03:59 Last Admin: 04/23/18 05:51 Dose: Not Given Chlorhexidine Gluconate (Chlorhexidine 2% Cloth) 3 pack TOPICAL DAILY@0400 PRN PRN Reason: Extra cloth needed Stop: 04/25/18 03:59 Clonidine HCl (Catapres) 0.1 mg PO Q12HR PRN PRN Reason: BLOOD PRESSURE MANAGEMENT Dextrose (D50w Vial) 50 ml IV.PUSH UNSCH PRN PRN Reason: PER HYPOGLYCEMIA PROTOCOL Dextrose (D50w Vial) 50 ml IV.PUSH UNSCH PRN PRN Reason: PER HYPOGLYCEMIA PROTOCOL Dextrose (D50w Vial) 50 ml IV.PUSH UNSCH PRN PRN Reason: PER HYPOGLYCEMIA PROTOCOL Divalproex Sodium (Depakote Dr) 250 mg PO TID [facility] Last Admin: 04/23/18 08:17 Dose: 250 mg Glucagon (Glucagon Inj) 1 mg OTHER PRN PRN PRN Reason: for Hypoglycemia Protocol Glucagon (Glucagon Inj) 1 mg OTHER PRN PRN PRN Reason: for Hypoglycemia Protocol Hydralazine HCl (Apresoline) 100 mg PO TID [facility] Last Admin: 04/23/18 08:17 Dose: 100 mg Hydralazine HCl (Apresoline Inj) 20 mg IV.PUSH Q4H PRN PRN Reason: SBP >160 Last Admin: 04/22/18 20:45 Dose: 20 mg Ceftriaxone Sodium 1,000 mg/ (Sodium Chloride) 100 mls @ 200 mls/hr IV.SIG Q24H [facility] Last Infusion: 04/22/18 14:50 Dose: Infused Insulin Aspart (Novolog Insulin Correctional Sugar Inj) 0 unit SQ Q6HR [facility]; Protocol Last Admin: 04/23/18 07:29 Dose: 2 unit Insulin Detemir (Levemir Inj) 5 unit SQ BID [facility] Last Admin: 04/23/18 08:17 Dose: 5 unit Lactulose (Lactulose Liq) 30 ml PO DAILY PRN PRN Reason: SEVERE CONSITIPATION Last Admin: 04/22/18 18:53 Dose: 30 ml Nifedipine (Procardia Xl) 30 mg PO BID [facility] Pantoprazole Sodium (Protonix) 40 mg PO DAILY [facility] Sennosides (Senokot) 17.2 mg PO Q12H PRN PRN Reason: Moderate Constipation Sodium Chloride (Ns Flush) 2 ml IV.FLUSH PRN PRN PRN Reason: FLUSH AFTER USING IV ACCESS Sodium Chloride (Ns Flush) 2 ml IV.FLUSH BID [facility] Last Admin: 04/23/18 08:18 Dose: 2 ml Allergies Allergy/AdvReac Type Severity Reaction Status Date / Time levofloxacin Allergy Severe Rash Verified 04/12/18 09:36 penicillin G Allergy Severe blistery Verified 04/12/18 09:36 rash metformin Allergy Intermediate Diarrhea Verified 04/12/18 09:36 azithromycin Allergy Mild Itching Verified 04/12/18 09:36 all antibiotics except keflex Allergy Severe Hives Uncoded 04/12/18 09:36 Home Medications Medication Instructions Recorded Confirmed Type albuterol sulfate [Ventolin HFA] 1 puff INHALATION Q4-6H PRN 04/11/18 04/20/18 History cholecalciferol (vitamin D3) 5,000 unit PO DAILY 04/11/18 04/20/18 History [Vitamin D3] clonidine HCl 0.1 mg PO BID 04/11/18 04/20/18 History diltiazem HCl 480 mg PO DAILY 04/11/18 04/20/18 History divalproex 250 mg PO TID 04/11/18 04/20/18 History furosemide 20 mg PO DAILY 04/11/18 04/20/18 History glipizide 10 mg PO BID 04/11/18 04/20/18 History hydralazine 100 mg PO TID 04/11/18 04/20/18 History latanoprost 1 drp RIGHT EYE QPM 04/11/18 04/20/18 History losartan 100 mg PO DAILY 04/11/18 04/20/18 History metoprolol succinate 100 mg PO DAILY 04/11/18 04/20/18 History timolol maleate 1 drp EACH EYE DAILY 04/11/18 04/20/18 History Physical Exam Vital signs: Vital Signs 04/22/18 11:00 04/22/18 13:22 04/22/18 15:00 Temperature 98.3 F 99.6 F Pulse Rate 72 79 77 Respiratory Rate 16 18 16 Blood Pressure 136/73 161/78 H Pulse Oximetry 04/22/18 16:57 04/22/18 19:00 04/22/18 20:25 Temperature 100.9 F H Pulse Rate 80 84 86 Respiratory Rate 18 16 16 Blood Pressure 167/80 H Pulse Oximetry 94 L 04/22/18 23:00 04/22/18 23:35 04/23/18 00:00 Temperature 100.3 F H Pulse Rate 81 83 Respiratory Rate 16 18 16 Blood Pressure 135/64 Pulse Oximetry 04/23/18 03:00 04/23/18 04:00 04/23/18 04:05 Temperature 99.9 F H Pulse Rate 71 73 Respiratory Rate 16 16 16 Blood Pressure 145/72 H Pulse Oximetry 04/23/18 07:00 04/23/18 07:28 04/23/18 08:00 Temperature 98.8 F Pulse Rate 79 Respiratory Rate 14 Blood Pressure 141/68 H Pulse Oximetry 95 97 95 Intake & Output 04/22/18 04/23/18 04/23/18 18:59 06:59 18:59 Intake Total 1200 / 1200 480 / 480 Output Total 1225 / 1225 710 / 710 Balance -25 / -25 -230 / -230 Weight 86 kg Intake: IV 100 / 100 Rocephin Inj 1,000 MG In NS Inj 100 / 100 100 ML @ 200 mls/hr IV.SIG Q24H [facility] Rx#:[id number] Oral 1100 / 1100 480 / 480 Output: Urine 1225 / 1225 710 / 710 Other: # Voids 7 2 Date of Last Bowel Movement 04/20/18 04/20/18 04/20/18 - Constitutional no acute distress - Routine HEENT Exam Head: Present: normocephalic, atraumatic - Routine Neck Exam Present: supple, full ROM. Absent: JVD, carotid bruit - Routine Respiratory Exam Present: CTA bilaterally - Routine Abdominal Exam Present: soft, normoactive bowel sounds - Routine Extremities Exam Present: full ROM, normal capillary refill. Absent: edema - Routine Skin Exam Present: intact - Routine Neurological Exam Present: alert, oriented X3 - Urinary Catheter Management Indwelling Urethral Catheter Cath placed during this visit: yes, but has since been removed by the nurse Reason for continuing: Hourly intake/output Insertion date: 04/19/18 Insertion time: 21:07 Removal date: 04/21/18 Removal time: 10:24 Results 04/21/18 03:07 04/23/18 05:40 Comprehensive Metabolic Panel 04/23/18 Range/Units 05:40 Sodium 136 (136-145) meq/L Potassium 4.3 (3.5-5.1) meq/L Chloride 98 (98-107) meq/L Carbon Dioxide 25.7 (21.0-32.0) meq/L BUN 58 H (7-18) mg/dL Creatinine 2.79 H (0.60-1.30) mg/dL Calcium 9.0 (8.5-10.1) mg/dL Intake and Output 04/22/18 04/23/18 04/23/18 22:59 06:59 14:59 Intake Total 1100 / 1100 480 / 480 Output Total 1225 / 1225 710 / 710 Balance -125 / -125 -230 / -230 Intake: Oral 1100 / 1100 480 / 480 Output: Urine 1225 / 1225 710 / 710 Other: # Voids 7 2 Date of Last Bowel Movement 04/20/18 04/20/18 04/20/18 Weight 86 kg Assessment and Plan - Plan Assessment: -Symptomatic Bradycardia with atrial asystole and ventricular escape in setting of hyperkalemia and multiple AVN agents, now s/p return of intrinsic sinus rhythm following transvenous pacing. -Hyperkalemia, resolved. likely was due to IVORY on CKD -HTN poorly controlled with home meds held. He will require large change in home regimen clearly with fewer AVN agents -IVORY on CKD, creatinine 3, at baseline per nephrology -mild diastolic CHF, breathing improved with Lasix Recommendations: - Continue hydralazine 100mg tid, - He would like benefit from ARB, would resume when okay with nephrology - Amlodipine was stopped due to "ineffective", now on Nifedipine. _ I am concerned to Atenolol in patient with significant CKD. Will change to equivalent dose of Metoprolol 100 mg BID. - rest per primary team. I am covering [facility] this weekend.
--- NOTE | 2018-04-23 13:59 | P.PNNP ---
Subjective Interval history: Patient is doing well Physical Exam Vital signs: Vital Signs 04/22/18 15:00 04/22/18 16:57 04/22/18 19:00 Temperature 99.6 F 100.9 F H Pulse Rate 77 80 84 Respiratory Rate 16 18 16 Blood Pressure 161/78 H 167/80 H Pulse Oximetry 04/22/18 20:25 04/22/18 23:00 04/22/18 23:35 Temperature 100.3 F H Pulse Rate 86 81 83 Respiratory Rate 16 16 18 Blood Pressure 135/64 Pulse Oximetry 94 L 04/23/18 00:00 04/23/18 03:00 04/23/18 04:00 Temperature 99.9 F H Pulse Rate 71 Respiratory Rate 16 16 16 Blood Pressure 145/72 H Pulse Oximetry 04/23/18 04:05 04/23/18 07:00 04/23/18 07:28 Temperature 98.8 F Pulse Rate 73 79 Respiratory Rate 16 14 Blood Pressure 141/68 H Pulse Oximetry 95 97 04/23/18 08:00 04/23/18 11:00 04/23/18 11:40 Temperature 98.6 F Pulse Rate 68 70 Respiratory Rate 14 15 Blood Pressure 138/72 Pulse Oximetry 95 97 Intake & Output 04/22/18 04/23/18 04/23/18 18:59 06:59 18:59 Intake Total 1200 / 1200 480 / 480 100 / 100 Output Total 1225 / 1225 710 / 710 Balance -25 / -25 -230 / -230 100 / 100 Weight 86 kg Intake: IV 100 / 100 100 / 100 Rocephin Inj 1,000 MG In NS Inj 100 / 100 100 / 100 100 ML @ 200 mls/hr IV.SIG Q24H [facility] Rx#:[id number] Oral 1100 / 1100 480 / 480 Output: Urine 1225 / 1225 710 / 710 Other: # Voids 7 2 Date of Last Bowel Movement 04/20/18 04/20/18 04/20/18 Narrative: GENERAL: Well-developed well-nourished. In no acute distress. NECK: No carotid bruits. No JVD. R IJ sheath in place. CARDIOVASCULAR: Regular rate and rhythm. No murmur appreciated. RESPIRATORY: No accessory muscle use. Clear to auscultation. Breath sounds equal bilaterally. MUSCULOSKELETAL: No clubbing or cyanosis. No edema. NEUROLOGICAL: Awake and alert. Normal speech. - Urinary Catheter Management Indwelling Urethral Catheter Cath placed during this visit: yes, but has since been removed by the nurse Reason for continuing: Hourly intake/output Insertion date: 04/19/18 Insertion time: 21:07 Removal date: 04/21/18 Removal time: 10:24 Assessment and Plan - Assessment (1) Hypertension Code(s): I10 - Essential (primary) hypertension Status: Acute Qualifiers: Hypertension type: essential hypertension Qualified Code(s): I10 - Essential (primary) hypertension (2) Bradyarrhythmia Code(s): I49.8 - Other specified cardiac arrhythmias Status: Acute Plan: Resolved diltiazem was discontinued and beta-abena was stopped (3) Acute hyperkalemia Code(s): E87.5 - Hyperkalemia Status: Acute (4) Acute renal failure Code(s): N17.9 - Acute kidney failure, unspecified Status: Acute Qualifiers: Acute renal failure type: unspecified Qualified Code(s): N17.9 - Acute kidney failure, unspecified Plan: Resolving with improvement in heart rate and blood pressure - Plan Patient has improved urine output and he responded well to Lasix, his blood pressure is improved and He has returned to his baseline rhythm, creatinine 2.79 Potassium has improved Patient is diuresing well renal functions continue to improve UTI treated with Ceftriaxone. Gram-negative rods in the urine creatinine decline He was in cardiogenic shock initially which resolved Continue to observe for further improvement Follow BMP
[2018-04-23] MEDS: Acetaminophen 325 MG Tablet PO PRN (20:51)
[2018-04-24] MEDS: Acetaminophen 325 MG Tablet PO PRN ×2 (03:21→20:15)
[2018-04-24] MEDS: Chlorhexidine Gluconate 2% 1 Pack (2 Cloths) TOPICAL SCH (05:39)
[2018-04-24] MEDS: Insulin NovoLOG Aspart Correctional Sugar Inj SQ SCH ×3 (06:16→17:10)
[2018-04-24] MEDS: Insulin Detemir Inj 1,000 UNIT/10 ML Vial SQ SCH ×2 (09:09→20:16)
[2018-04-24] MEDS: Metoprolol Tartrate 100 MG Tablet PO SCH ×2 (09:09→20:16)
[2018-04-24] MEDS: Divalproex 250 MG DR Tablet PO SCH ×3 (09:09→17:05)
--- NOTE | 2018-04-24 09:30 | P.PNIM ---
Subjective Interval history: less dysuria still has right IJ Physical Exam Vital signs: Vital Signs 04/23/18 11:00 04/23/18 11:40 04/23/18 15:00 Temperature 98.6 F 98.6 F Pulse Rate 68 70 70 Respiratory Rate 14 15 15 Blood Pressure 138/72 140/73 Pulse Oximetry 97 97 04/23/18 16:05 04/23/18 19:00 04/23/18 20:00 Temperature 98.2 F Pulse Rate 70 77 76 Respiratory Rate 18 24 14 Blood Pressure 154/71 H Pulse Oximetry 95 95 04/23/18 23:00 04/23/18 23:05 04/23/18 23:55 Temperature 98.6 F Pulse Rate 71 72 72 Respiratory Rate 22 14 Blood Pressure 147/71 H Pulse Oximetry 95 04/24/18 03:00 04/24/18 03:47 04/24/18 07:00 Temperature 100.3 F H 97.6 F Pulse Rate 71 68 66 Respiratory Rate 22 14 15 Blood Pressure 145/76 H 137/73 Pulse Oximetry 95 96 04/24/18 07:36 04/24/18 07:45 Temperature Pulse Rate Respiratory Rate Blood Pressure Pulse Oximetry 96 96 Intake & Output 04/23/18 04/24/18 04/24/18 18:59 06:59 18:59 Intake Total 1300 / 1300 720 / 720 Output Total 860 / 860 900 / 900 Balance 440 / 440 -180 / -180 Intake: IV 100 / 100 Rocephin Inj 1,000 MG In NS Inj 100 / 100 100 ML @ 200 mls/hr IV.SIG Q24H [facility] Rx#:[id number] Oral 1200 / 1200 720 / 720 Output: Urine 860 / 860 900 / 900 Other: Date of Last Bowel Movement 04/20/18 04/20/18 right IJ heart reg lung good air entry abd s/nt ext no edema - Urinary Catheter Management Indwelling Urethral Catheter Cath placed during this visit: yes, but has since been removed by the nurse Reason for continuing: Hourly intake/output Insertion date: 04/19/18 Insertion time: 21:07 Removal date: 04/21/18 Removal time: 10:24 Results - Labs CBC & Chem 7: 04/21/18 03:07 04/23/18 05:40 Laboratory Results - last 24 hr 04/22/18 04/23/1818 08:40 11:57 17:41 POC Glucose 237 H 225 H Urine Color Yellow Urine Clarity Cloudy H Urine pH 6.0 Ur Specific [place] 1.014 Urine Protein 500 or greater Urine Glucose (UA) 150 H Urine Ketones Negative Urine Occult Blood Small H Urine Nitrate Negative Urine Bilirubin Negative Urine Urobilinogen Less than 2 Ur Leukocyte Esterase Moderate H Urine RBC 4 H Urine WBC 165 H Urine WBC Clumps Many H Urine Bacteria Many H Hyaline Casts 3 Urine Yeast Moderate H Micro UA Comment Culture indicated Urine Culture Comments Culture indicated 04/23/18 04/24/18 23:46 06:13 POC Glucose 220 H 157 H Urine Color Urine Clarity Urine pH Ur Specific [place] Urine Protein Urine Glucose (UA) Urine Ketones Urine Occult Blood Urine Nitrate Urine Bilirubin Urine Urobilinogen Ur Leukocyte Esterase Urine RBC Urine WBC Urine WBC Clumps Urine Bacteria Hyaline Casts Urine Yeast Micro UA Comment Urine Culture Comments Microbiology 04/22/18 08:40 Clean Catch Urine Urine Culture - Preliminary gram negative rods Assessment and Plan - Assessment (1) Bradyarrhythmia Code(s): I49.8 - Other specified cardiac arrhythmias Status: Acute Plan: 1. symptomatic bradycardia. atrial asystole/ventricular rhythm. pt with hyperkalemia and on high dose ccb/bb. temporary TVP was placed. Back in sinus rhythm and k corrected cardiology was managing htn medications cont hydralazine on 04/23 it was noted still requiring alot of po/iv breakthrough bp meds norvasc changed to procardia and cardiology changed atenolol to metoprolol bp currently stable ...will cont to monitor over next 24hrs and if stable possible dc home tomorrow 2. a/ckd nephrology following. impoving 3. dm 2 oha on hold on basal/bolus insulin for now. 4. low grade fever noted uti noted. f/u cx. cont rocephin and adjust per final cx still awaiting removal of right IJ. discussed with RN remove IJ line today 5. diastolic chf.
--- NOTE | 2018-04-24 11:47 | P.PNNP ---
Subjective Interval history: Had fever 100.3 Patient has some dysuria Physical Exam Vital signs: Vital Signs 04/23/18 15:00 04/23/18 16:05 04/23/18 19:00 Temperature 98.6 F 98.2 F Pulse Rate 70 70 77 Respiratory Rate 15 18 24 Blood Pressure 140/73 154/71 H Pulse Oximetry 97 95 04/23/18 20:00 04/23/18 23:00 04/23/18 23:05 Temperature 98.6 F Pulse Rate 76 71 72 Respiratory Rate 14 22 Blood Pressure 147/71 H Pulse Oximetry 95 95 04/23/18 23:55 04/24/18 03:00 04/24/18 03:47 Temperature 100.3 F H Pulse Rate 72 71 68 Respiratory Rate 14 22 14 Blood Pressure 145/76 H Pulse Oximetry 95 04/24/18 07:00 04/24/18 07:36 04/24/18 07:45 Temperature 97.6 F Pulse Rate 66 Respiratory Rate 15 Blood Pressure 137/73 Pulse Oximetry 96 96 96 04/24/18 11:00 Temperature 97.6 F Pulse Rate 68 Respiratory Rate 14 Blood Pressure 138/73 Pulse Oximetry 95 Intake & Output 04/23/18 04/24/18 04/24/18 18:59 06:59 18:59 Intake Total 1300 / 1300 720 / 720 Output Total 860 / 860 900 / 900 Balance 440 / 440 -180 / -180 Intake: IV 100 / 100 Rocephin Inj 1,000 MG In NS Inj 100 / 100 100 ML @ 200 mls/hr IV.SIG Q24H [facility] Rx#:[id number] Oral 1200 / 1200 720 / 720 Output: Urine 860 / 860 900 / 900 Other: Date of Last Bowel Movement 04/20/18 04/20/18 Narrative: GENERAL: Well-developed well-nourished. In no acute distress. NECK: No carotid bruits. No JVD. R IJ sheath in place. CARDIOVASCULAR: Regular rate and rhythm. No murmur appreciated. RESPIRATORY: No accessory muscle use. Clear to auscultation. Breath sounds equal bilaterally. MUSCULOSKELETAL: No clubbing or cyanosis. No edema. NEUROLOGICAL: Awake and alert. Normal speech. - Urinary Catheter Management Indwelling Urethral Catheter Cath placed during this visit: yes, but has since been removed by the nurse Reason for continuing: Hourly intake/output Insertion date: 04/19/18 Insertion time: 21:07 Removal date: 04/21/18 Removal time: 10:24 Assessment and Plan - Assessment (1) Hypertension Code(s): I10 - Essential (primary) hypertension Status: Acute Qualifiers: Hypertension type: essential hypertension Qualified Code(s): I10 - Essential (primary) hypertension Plan: Hydralazine added along with Catapres (2) Bradyarrhythmia Code(s): I49.8 - Other specified cardiac arrhythmias Status: Acute Plan: Resolved diltiazem was discontinued and beta-abena was stopped (3) Acute hyperkalemia Code(s): E87.5 - Hyperkalemia Status: Acute (4) Acute renal failure Code(s): N17.9 - Acute kidney failure, unspecified Status: Acute Qualifiers: Acute renal failure type: unspecified Qualified Code(s): N17.9 - Acute kidney failure, unspecified Plan: Resolving with improvement in heart rate and blood pressure - Plan Patient last creatinine 2.79, blood pressure was fluctuating with adjustment made by Dr. Whitehead Patient is diuresing well renal functions continue to improve UTI treated with Ceftriaxone. Gram-negative rods in the urine creatinine decline, growing Serratia And will give 1 dose Invanz as organism is more sensitive He was in cardiogenic shock initially which resolved Continue to observe for further improvement Follow BMP
[2018-04-24] MEDS ORDERED: Ertapenem Inj 500 MG in Sodium Chlor 0.9% Inj 100 ML IV.SIG ONE (12:28)
--- NOTE | 2018-04-24 15:52 | P.PNCA ---
Subjective Interval history: Feeling great Discussed with patient and his at bedside Tele showed sinus rhythm in 70s Medications and Allergies Active Medications: Active Medications Acetaminophen (Tylenol) 650 mg PO Q6H PRN PRN Reason: PAIN 1-10 Last Admin: 04/24/18 03:21 Dose: 650 mg Albuterol (Duoneb Neb (Prn)) 1 ampul NEB Q2HR NEB PRN PRN Reason: WHEEZING Albuterol (Duoneb Neb (Jay)) 1 ampul NEB Q4HR NEB JAY Last Admin: 04/24/18 14:08 Dose: Not Given Bisacodyl (Dulcolax Supp) 10 mg RECTAL DAILY PRN PRN Reason: SEVERE CONSITIPATION Chlorhexidine Gluconate (Chlorhexidine 2% Cloth) 3 pack TOPICAL DAILY@0400 JAY Stop: 04/25/18 03:59 Last Admin: 04/24/18 05:39 Dose: Not Given Chlorhexidine Gluconate (Chlorhexidine 2% Cloth) 3 pack TOPICAL DAILY@0400 PRN PRN Reason: Extra cloth needed Stop: 04/25/18 03:59 Clonidine HCl (Catapres) 0.1 mg PO Q12HR PRN PRN Reason: BLOOD PRESSURE MANAGEMENT Dextrose (D50w Vial) 50 ml IV.PUSH UNSCH PRN PRN Reason: PER HYPOGLYCEMIA PROTOCOL Dextrose (D50w Vial) 50 ml IV.PUSH UNSCH PRN PRN Reason: PER HYPOGLYCEMIA PROTOCOL Dextrose (D50w Vial) 50 ml IV.PUSH UNSCH PRN PRN Reason: PER HYPOGLYCEMIA PROTOCOL Divalproex Sodium (Depakote Dr) 250 mg PO TID [facility] Last Admin: 04/24/18 12:02 Dose: 250 mg Glucagon (Glucagon Inj) 1 mg OTHER PRN PRN PRN Reason: for Hypoglycemia Protocol Glucagon (Glucagon Inj) 1 mg OTHER PRN PRN PRN Reason: for Hypoglycemia Protocol Hydralazine HCl (Apresoline) 100 mg PO TID [facility] Last Admin: 04/24/18 12:02 Dose: 100 mg Hydralazine HCl (Apresoline Inj) 20 mg IV.PUSH Q4H PRN PRN Reason: SBP >160 Last Admin: 04/22/18 20:45 Dose: 20 mg Ceftriaxone Sodium 1,000 mg/ (Sodium Chloride) 100 mls @ 200 mls/hr IV.SIG Q24H [facility] Last Infusion: 04/24/18 12:33 Dose: Infused Insulin Aspart (Novolog Insulin Correctional Sugar Inj) 0 unit SQ Q6HR [facility]; Protocol Last Admin: 04/24/18 12:02 Dose: 4 unit Insulin Detemir (Levemir Inj) 5 unit SQ BID [facility] Last Admin: 04/24/18 09:09 Dose: 5 unit Lactulose (Lactulose Liq) 30 ml PO DAILY PRN PRN Reason: SEVERE CONSITIPATION Last Admin: 04/22/18 18:53 Dose: 30 ml Metoprolol Tartrate (Lopressor) 100 mg PO BID [facility] Last Admin: 04/24/18 09:09 Dose: 100 mg Nifedipine (Procardia Xl) 30 mg PO BID [facility] Last Admin: 04/24/18 09:09 Dose: 30 mg Pantoprazole Sodium (Protonix) 40 mg PO DAILY [facility] Last Admin: 04/24/18 09:09 Dose: 40 mg Sennosides (Senokot) 17.2 mg PO Q12H PRN PRN Reason: Moderate Constipation Sodium Chloride (Ns Flush) 2 ml IV.FLUSH PRN PRN PRN Reason: FLUSH AFTER USING IV ACCESS Sodium Chloride (Ns Flush) 2 ml IV.FLUSH BID [facility] Last Admin: 04/24/18 09:11 Dose: 2 ml Allergies Allergy/AdvReac Type Severity Reaction Status Date / Time levofloxacin Allergy Severe Rash Verified 04/12/18 09:36 penicillin G Allergy Severe blistery Verified 04/12/18 09:36 rash metformin Allergy Intermediate Diarrhea Verified 04/12/18 09:36 azithromycin Allergy Mild Itching Verified 04/12/18 09:36 all antibiotics except keflex Allergy Severe Hives Uncoded 04/12/18 09:36 Home Medications Medication Instructions Recorded Confirmed Type albuterol sulfate [Ventolin HFA] 1 puff INHALATION Q4-6H PRN 04/11/18 04/20/18 History cholecalciferol (vitamin D3) 5,000 unit PO DAILY 04/11/18 04/20/18 History [Vitamin D3] clonidine HCl 0.1 mg PO BID 04/11/18 04/20/18 History diltiazem HCl 480 mg PO DAILY 04/11/18 04/20/18 History divalproex 250 mg PO TID 04/11/18 04/20/18 History furosemide 20 mg PO DAILY 04/11/18 04/20/18 History glipizide 10 mg PO BID 04/11/18 04/20/18 History hydralazine 100 mg PO TID 04/11/18 04/20/18 History latanoprost 1 drp RIGHT EYE QPM 04/11/18 04/20/18 History losartan 100 mg PO DAILY 04/11/18 04/20/18 History metoprolol succinate 100 mg PO DAILY 04/11/18 04/20/18 History timolol maleate 1 drp EACH EYE DAILY 04/11/18 04/20/18 History Physical Exam Vital signs: Vital Signs 04/23/18 16:05 04/23/18 19:00 04/23/18 20:00 Temperature 98.2 F Pulse Rate 70 77 76 Respiratory Rate 18 24 14 Blood Pressure 154/71 H Pulse Oximetry 95 95 04/23/18 23:00 04/23/18 23:05 04/23/18 23:55 Temperature 98.6 F Pulse Rate 71 72 72 Respiratory Rate 22 14 Blood Pressure 147/71 H Pulse Oximetry 95 04/24/18 03:00 04/24/18 03:47 04/24/18 07:00 Temperature 100.3 F H 97.6 F Pulse Rate 71 68 66 Respiratory Rate 22 14 15 Blood Pressure 145/76 H 137/73 Pulse Oximetry 95 96 04/24/18 07:36 04/24/18 07:45 04/24/18 11:00 Temperature 97.6 F Pulse Rate 68 Respiratory Rate 14 Blood Pressure 138/73 Pulse Oximetry 96 96 95 04/24/18 15:00 Temperature 99 F Pulse Rate 69 Respiratory Rate 18 Blood Pressure 157/74 H Pulse Oximetry 97 Intake & Output 04/23/18 04/24/18 04/24/18 18:59 06:59 18:59 Intake Total 1300 / 1300 720 / 720 1160 / 1160 Output Total 860 / 860 900 / 900 650 / 650 Balance 440 / 440 -180 / -180 510 / 510 Intake: IV 100 / 100 200 / 200 INVanz Inj 500 MG In NS Inj 100 100 / 100 ML @ 200 mls/hr IV.SIG ONCE ONE Rx#:[id number] Rocephin Inj 1,000 MG In NS Inj 100 / 100 100 / 100 100 ML @ 200 mls/hr IV.SIG Q24H [facility] Rx#:[id number] Oral 1200 / 1200 720 / 720 960 / 960 Output: Urine 860 / 860 900 / 900 650 / 650 Other: Date of Last Bowel Movement 04/20/18 04/20/18 04/20/18 - Constitutional no acute distress - Routine HEENT Exam Head: Present: normocephalic - Routine Neck Exam Present: supple, full ROM. Absent: JVD - Routine Respiratory Exam Present: CTA bilaterally - Routine Cardiovascular Exam Present: RRR, S1, S2. Absent: murmur - Routine Abdominal Exam Present: soft, normoactive bowel sounds - Routine Extremities Exam Present: full ROM, normal capillary refill - Routine Skin Exam Present: intact, dry, warm - Routine Neurological Exam Present: alert, oriented X3, CN II-XII intact - Urinary Catheter Management Indwelling Urethral Catheter Cath placed during this visit: yes, but has since been removed by the nurse Reason for continuing: Hourly intake/output Insertion date: 04/19/18 Insertion time: 21:07 Removal date: 04/21/18 Removal time: 10:24 Results 04/21/18 03:07 04/23/18 05:40 Comprehensive Metabolic Panel 04/23/18 Range/Units 05:40 Sodium 136 (136-145) meq/L Potassium 4.3 (3.5-5.1) meq/L Chloride 98 (98-107) meq/L Carbon Dioxide 25.7 (21.0-32.0) meq/L BUN 58 H (7-18) mg/dL Creatinine 2.79 H (0.60-1.30) mg/dL Calcium 9.0 (8.5-10.1) mg/dL Intake and Output 04/24/18 04/24/18 04/24/18 06:59 14:59 22:59 Intake Total 720 / 720 1160 / 1160 Output Total 900 / 900 650 / 650 Balance -180 / -180 510 / 510 Intake: IV 200 / 200 INVanz Inj 500 MG In NS Inj 100 100 / 100 ML @ 200 mls/hr IV.SIG ONCE ONE Rx#:[id number] Rocephin Inj 1,000 MG In NS Inj 100 / 100 100 ML @ 200 mls/hr IV.SIG Q24H [facility] Rx#:[id number] Oral 720 / 720 960 / 960 Output: Urine 900 / 900 650 / 650 Other: Date of Last Bowel Movement 04/20/18 04/20/18 Assessment and Plan - Assessment (1) Bradyarrhythmia Code(s): I49.8 - Other specified cardiac arrhythmias Status: Acute (2) Acute renal failure Code(s): N17.9 - Acute kidney failure, unspecified Status: Acute (3) Hypertension Code(s): I10 - Essential (primary) hypertension Status: Acute - Plan Assessment: -Symptomatic Bradycardia with atrial asystole and ventricular escape in setting of hyperkalemia and multiple AVN agents, now s/p return of intrinsic sinus rhythm following transvenous pacing. -Hyperkalemia, resolved. likely was due to IVORY on CKD -HTN poorly controlled with home meds held. He will require large change in home regimen clearly with fewer AVN agents -IVORY on CKD, creatinine 3, at baseline per nephrology -mild diastolic CHF, breathing improved with Lasix Recommendations: - BP much better control on current regement Continue hydralazine 100mg tid, - He would like benefit from ARB, would resume when okay with nephrology - Amlodipine was stopped due to "ineffective", now on Nifedipine. _ Stopped Atenolol due to CKD. Replaced with Metoprolol 100 mg BID. HR well controlled - rest per primary team. I am covering [facility] Cardiology this weekend. (2) Acute renal failure Qualifiers: Acute renal failure type: unspecified Qualified Code(s): N17.9 - Acute kidney failure, unspecified (3) Hypertension Qualifiers: Hypertension type: essential hypertension Qualified Code(s): I10 - Essential (primary) hypertension
[2018-04-25] MEDS: Insulin NovoLOG Aspart Correctional Sugar Inj SQ SCH ×4 (00:34→17:56)
[2018-04-25] MEDS: Acetaminophen 325 MG Tablet PO PRN ×2 (03:54→17:17)
[2018-04-25 06:16] LABS: Calcium 9.3 mg/dL (8.5-10.1); Carbon Dioxide 24.9 meq/L (21.0-32.0); Potassium 4.4 meq/L (3.5-5.1)
--- NOTE | 2018-04-25 08:03 | P.PNCA ---
Subjective Interval history: Feeling well today. No shortness of breath. Telemetry continues to show NSR with bundle branch block. IJ sheath removed. Medications and Allergies Allergies Allergy/AdvReac Type Severity Reaction Status Date / Time levofloxacin Allergy Severe Rash Verified 04/12/18 09:36 penicillin G Allergy Severe blistery Verified 04/12/18 09:36 rash metformin Allergy Intermediate Diarrhea Verified 04/12/18 09:36 azithromycin Allergy Mild Itching Verified 04/12/18 09:36 all antibiotics except keflex Allergy Severe Hives Uncoded 04/12/18 09:36 Home Medications Medication Instructions Recorded Confirmed Type albuterol sulfate [Ventolin HFA] 1 puff INHALATION Q4-6H PRN 04/11/18 04/20/18 History cholecalciferol (vitamin D3) 5,000 unit PO DAILY 04/11/18 04/20/18 History [Vitamin D3] clonidine HCl 0.1 mg PO BID 04/11/18 04/20/18 History diltiazem HCl 480 mg PO DAILY 04/11/18 04/20/18 History divalproex 250 mg PO TID 04/11/18 04/20/18 History furosemide 20 mg PO DAILY 04/11/18 04/20/18 History glipizide 10 mg PO BID 04/11/18 04/20/18 History hydralazine 100 mg PO TID 04/11/18 04/20/18 History latanoprost 1 drp RIGHT EYE QPM 04/11/18 04/20/18 History losartan 100 mg PO DAILY 04/11/18 04/20/18 History metoprolol succinate 100 mg PO DAILY 04/11/18 04/20/18 History timolol maleate 1 drp EACH EYE DAILY 04/11/18 04/20/18 History Active Medications: Active Medications Acetaminophen (Tylenol) 650 mg PO Q6H PRN PRN Reason: PAIN 1-10 Last Admin: 04/25/18 03:54 Dose: 650 mg Albuterol (Duoneb Neb (Prn)) 1 ampul NEB Q2HR NEB PRN PRN Reason: WHEEZING Albuterol (Duoneb Neb (Jay)) 1 ampul NEB Q4HR NEB JAY Last Admin: 04/25/18 03:51 Dose: Not Given Bisacodyl (Dulcolax Supp) 10 mg RECTAL DAILY PRN PRN Reason: SEVERE CONSITIPATION Carvedilol (Coreg) 12.5 mg PO BID [facility] Clonidine HCl (Catapres) 0.1 mg PO Q12HR PRN PRN Reason: BLOOD PRESSURE MANAGEMENT Dextrose (D50w Vial) 50 ml IV.PUSH UNSCH PRN PRN Reason: PER HYPOGLYCEMIA PROTOCOL Divalproex Sodium (Depakote Dr) 250 mg PO TID [facility] Last Admin: 04/24/18 17:05 Dose: 250 mg Glucagon (Glucagon Inj) 1 mg OTHER PRN PRN PRN Reason: for Hypoglycemia Protocol Glucagon (Glucagon Inj) 1 mg OTHER PRN PRN PRN Reason: for Hypoglycemia Protocol Hydralazine HCl (Apresoline) 100 mg PO TID [facility] Last Admin: 04/24/18 17:05 Dose: 100 mg Hydralazine HCl (Apresoline Inj) 20 mg IV.PUSH Q4H PRN PRN Reason: SBP >160 Last Admin: 04/22/18 20:45 Dose: 20 mg Ceftriaxone Sodium 1,000 mg/ (Sodium Chloride) 100 mls @ 200 mls/hr IV.SIG Q24H [facility] Last Infusion: 04/24/18 12:33 Dose: Infused Insulin Aspart (Novolog Insulin Correctional Sugar Inj) 0 unit SQ Q6HR [facility]; Protocol Last Admin: 04/25/18 06:18 Dose: 2 unit Insulin Detemir (Levemir Inj) 5 unit SQ BID [facility] Last Admin: 04/24/18 20:16 Dose: 5 unit Lactulose (Lactulose Liq) 30 ml PO DAILY PRN PRN Reason: SEVERE CONSITIPATION Last Admin: 04/24/18 17:19 Dose: 30 ml Nifedipine (Procardia Xl) 30 mg PO BID [facility] Last Admin: 04/24/18 22:08 Dose: 30 mg Pantoprazole Sodium (Protonix) 40 mg PO DAILY [facility] Last Admin: 04/24/18 09:09 Dose: 40 mg Sennosides (Senokot) 17.2 mg PO Q12H PRN PRN Reason: Moderate Constipation Last Admin: 04/24/18 17:19 Dose: 17.2 mg Sodium Chloride (Ns Flush) 2 ml IV.FLUSH PRN PRN PRN Reason: FLUSH AFTER USING IV ACCESS Sodium Chloride (Ns Flush) 2 ml IV.FLUSH BID [facility] Last Admin: 04/24/18 20:25 Dose: 2 ml Physical Exam Vital signs: Vital Signs 04/24/18 11:00 04/24/18 15:00 04/24/18 16:00 Temperature 97.6 F 99 F Pulse Rate 68 69 69 Respiratory Rate 14 18 Blood Pressure 138/73 157/74 H Pulse Oximetry 95 97 04/24/18 17:00 04/24/18 18:00 04/24/18 19:00 Temperature 98.6 F Pulse Rate 73 75 75 Respiratory Rate 20 Blood Pressure 175/81 H Pulse Oximetry 94 L 04/24/18 20:00 04/24/18 20:57 04/24/18 21:00 Temperature Pulse Rate 76 70 Respiratory Rate Blood Pressure 163/75 H 145/67 H Pulse Oximetry 98 04/24/18 21:34 04/24/18 22:00 04/24/18 23:00 Temperature 98.6 F Pulse Rate 70 66 Respiratory Rate 16 20 Blood Pressure 156/74 H Pulse Oximetry 94 L 04/25/18 00:00 04/25/18 01:00 04/25/18 02:00 Temperature Pulse Rate 71 67 70 Respiratory Rate Blood Pressure Pulse Oximetry 04/25/18 03:00 04/25/18 04:00 04/25/18 04:38 Temperature 98.6 F Pulse Rate 68 66 Respiratory Rate 20 16 Blood Pressure 159/75 H Pulse Oximetry 96 04/25/18 05:00 04/25/18 06:00 Temperature Pulse Rate 69 73 Respiratory Rate Blood Pressure Pulse Oximetry Intake & Output 04/24/18 04/25/18 04/25/18 18:59 06:59 18:59 Intake Total 1640 / 1640 240 / 240 Output Total 650 / 650 725 / 725 Balance 990 / 990 -485 / -485 Weight 181 lb 14.102 oz Intake: IV 200 / 200 INVanz Inj 500 MG In NS Inj 100 100 / 100 ML @ 200 mls/hr IV.SIG ONCE ONE Rx#:[id number] Rocephin Inj 1,000 MG In NS Inj 100 / 100 100 ML @ 200 mls/hr IV.SIG Q24H [facility] Rx#:[id number] Oral 1440 / 1440 240 / 240 Output: Urine 650 / 650 725 / 725 Other: # Voids 1 4 Date of Last Bowel Movement 04/20/18 04/25/18 # Bowel Movements 2 Narrative: GENERAL: Well-developed well-nourished. In no acute distress. NECK: No carotid bruits. No JVD. CARDIOVASCULAR: Regular rate and rhythm. No murmur appreciated. RESPIRATORY: No accessory muscle use. Clear to auscultation. Breath sounds equal bilaterally. MUSCULOSKELETAL: No clubbing or cyanosis. Trace ankle edema. NEUROLOGICAL: Awake and alert. Normal speech. - Urinary Catheter Management Indwelling Urethral Catheter Cath placed during this visit: yes, but has since been removed by the nurse Reason for continuing: Hourly intake/output Insertion date: 04/19/18 Insertion time: 21:07 Removal date: 04/21/18 Removal time: 10:24 Results 04/21/18 03:07 04/25/18 04:52 Comprehensive Metabolic Panel 04/25/18 Range/Units 04:52 Sodium 140 (136-145) meq/L Potassium 4.4 (3.5-5.1) meq/L Chloride 104 (98-107) meq/L Carbon Dioxide 24.9 (21.0-32.0) meq/L BUN 70 H (7-18) mg/dL Creatinine 2.50 H (0.60-1.30) mg/dL Calcium 9.3 (8.5-10.1) mg/dL Intake and Output 04/24/18 04/25/18 04/25/18 22:59 06:59 14:59 Intake Total 480 / 480 240 / 240 Output Total 725 / 725 Balance 480 / 480 -485 / -485 Intake: Oral 480 / 480 240 / 240 Output: Urine 725 / 725 Other: # Voids 1 4 Date of Last Bowel Movement 04/24/18 04/25/18 # Bowel Movements 2 Weight 181 lb 14.102 oz Assessment and Plan - Plan Assessment: -Symptomatic Bradycardia with atrial asystole and ventricular escape in setting of hyperkalemia and multiple AVN agents, now s/p return of intrinsic sinus rhythm following transvenous pacing. -Hyperkalemia, resolved. likely was due to IVORY on CKD -HTN poorly controlled with home meds held. He will require large change in home regimen clearly with fewer AVN agents -IVORY on CKD, creatinine 3, at baseline per nephrology -mild diastolic CHF, breathing improved with Lasix -UTI Recommendations: - Continue hydralazine 100mg tid - Continue nifedipine, consider titrating dose - BP more elevated with change from atenolol to metoprolol, would change metoprolol to carvedilol. - He would likely benefit from ARB, would resume when okay with nephrology - rest per primary team. DC planning - Attending Attestation bradycardia - triggered event due to K+ and AVN agents now NSR monitor BP avoid AVN blocking agents will sign off call with questions no PPM
[2018-04-25] MEDS: Carvedilol 12.5 MG Tablet PO SCH ×2 (08:40→21:46)
[2018-04-25] MEDS: Insulin Detemir Inj 1,000 UNIT/10 ML Vial SQ SCH ×2 (08:40→21:46)
[2018-04-25] MEDS: Divalproex 250 MG DR Tablet PO SCH ×3 (08:41→17:56)
--- NOTE | 2018-04-25 16:57 | P.PNIM ---
Subjective Interval history: No new complaints. Physical Exam Vital signs: 04/25/18 13:00 04/25/18 14:00 04/25/18 15:00 Temperature 98.1 F Pulse Rate 72 74 69 Respiratory Rate 17 Blood Pressure 154/72 H Pulse Oximetry 98 Narrative: GENERAL: Well-developed well-nourished. In no acute distress. NECK: No carotid bruits. No JVD. CARDIOVASCULAR: Regular rate and rhythm. No murmur appreciated. RESPIRATORY: No accessory muscle use. Clear to auscultation. Breath sounds equal bilaterally. MUSCULOSKELETAL: No clubbing or cyanosis. Trace ankle edema. NEUROLOGICAL: Awake and alert. Normal speech. - Urinary Catheter Management Indwelling Urethral Catheter Cath placed during this visit: yes, but has since been removed by the nurse Reason for continuing: Hourly intake/output Insertion date: 04/19/18 Insertion time: 21:07 Removal date: 04/21/18 Removal time: 10:24 Results - Labs CBC & Chem 7: 04/21/18 03:07 04/26/18 04:55 Assessment and Plan - Assessment (1) Bradyarrhythmia Code(s): I49.8 - Other specified cardiac arrhythmias Status: Acute Plan: 1. symptomatic bradycardia. atrial asystole/ventricular rhythm. pt with hyperkalemia and on high dose ccb/bb. temporary TVP was placed. Back in sinus rhythm and k corrected cardiology was managing htn medications cont hydralazine on 04/23 it was noted still requiring alot of po/iv breakthrough bp meds norvasc changed to procardia 04/25/18 - coreg increased to 12.5mg BID 2. a/ckd nephrology following. impoving 3. dm 2 oha on hold on basal/bolus insulin for now. 4. low grade fever noted uti noted. f/u cx. cont rocephin and adjust per final cx still awaiting removal of right IJ. discussed with RN remove IJ line today 5. diastolic chf.
--- NOTE | 2018-04-25 20:47 | P.PNNP ---
Physical Exam Vital signs: Vital Signs 04/24/18 20:57 04/24/18 21:00 04/24/18 21:34 Temperature Pulse Rate 70 Respiratory Rate 16 Blood Pressure 145/67 H Pulse Oximetry 98 04/24/18 22:00 04/24/18 23:00 04/25/18 00:00 Temperature 98.6 F Pulse Rate 70 66 71 Respiratory Rate 20 Blood Pressure 156/74 H Pulse Oximetry 94 L 04/25/18 01:00 04/25/18 02:00 04/25/18 03:00 Temperature 98.6 F Pulse Rate 67 70 68 Respiratory Rate 20 Blood Pressure 159/75 H Pulse Oximetry 96 04/25/18 04:00 04/25/18 04:38 04/25/18 05:00 Temperature Pulse Rate 66 69 Respiratory Rate 16 Blood Pressure Pulse Oximetry 04/25/18 06:00 04/25/18 07:00 04/25/18 08:16 Temperature 98.4 F Pulse Rate 73 71 Respiratory Rate 17 Blood Pressure 154/72 H Pulse Oximetry 99 98 04/25/18 10:00 04/25/18 11:00 04/25/18 13:00 Temperature 98.3 F Pulse Rate 70 69 72 Respiratory Rate 16 Blood Pressure 153/72 H Pulse Oximetry 96 04/25/18 14:00 04/25/18 15:00 04/25/18 16:00 Temperature 98.1 F Pulse Rate 74 69 70 Respiratory Rate 17 Blood Pressure 154/72 H Pulse Oximetry 98 04/25/18 17:00 04/25/18 18:00 04/25/18 19:26 Temperature Pulse Rate 120 H 122 H Respiratory Rate Blood Pressure Pulse Oximetry 96 Intake & Output 04/25/18 04/25/18 04/26/18 06:59 18:59 06:59 Intake Total 240 / 240 1060 / 1060 Output Total 725 / 725 1490 / 1490 Balance -485 / -485 -430 / -430 Weight 82.5 kg Intake: IV 100 / 100 Rocephin Inj 1,000 MG In NS Inj 100 / 100 100 ML @ 200 mls/hr IV.SIG Q24H [facility] Rx#:[id number] Oral 240 / 240 960 / 960 Output: Urine 725 / 725 1490 / 1490 Other: # Voids 4 Date of Last Bowel Movement 04/25/18 04/25/18 # Bowel Movements 2 Narrative: GENERAL: Well-developed well-nourished. In no acute distress. NECK: No carotid bruits. No JVD. CARDIOVASCULAR: Regular rate and rhythm. No murmur appreciated. RESPIRATORY: No accessory muscle use. Clear to auscultation. Breath sounds equal bilaterally. MUSCULOSKELETAL: No clubbing or cyanosis. Trace ankle edema. NEUROLOGICAL: Awake and alert. Normal speech. - Urinary Catheter Management Indwelling Urethral Catheter Cath placed during this visit: yes, but has since been removed by the nurse Reason for continuing: Hourly intake/output Insertion date: 04/19/18 Insertion time: 21:07 Removal date: 04/21/18 Removal time: 10:24 Assessment and Plan - Assessment (1) Hypertension Code(s): I10 - Essential (primary) hypertension Status: Acute Qualifiers: Hypertension type: essential hypertension Qualified Code(s): I10 - Essential (primary) hypertension Plan: Hydralazine added along with Catapres (2) Bradyarrhythmia Code(s): I49.8 - Other specified cardiac arrhythmias Status: Acute Plan: Resolved diltiazem was discontinued and beta-abena was stopped (3) Acute hyperkalemia Code(s): E87.5 - Hyperkalemia Status: Acute (4) Acute renal failure Code(s): N17.9 - Acute kidney failure, unspecified Status: Acute Qualifiers: Acute renal failure type: unspecified Qualified Code(s): N17.9 - Acute kidney failure, unspecified Plan: Resolving with improvement in heart rate and blood pressure - Plan Patient last creatinine 2.5, blood pressure was fluctuating with adjustment made by Dr. Whitehead Patient is diuresing well renal functions continue to improve UTI treated with Ceftriaxone. Gram-negative rods in the urine creatinine decline, growing Serratia 1 dose Invanz as organism is more sensitive He was in cardiogenic shock initially which resolved Continue to observe for further improvement Follow BMP
[2018-04-26] MEDS: Insulin NovoLOG Aspart Correctional Sugar Inj SQ SCH ×2 (00:53→05:51)
[2018-04-26 06:00] LABS: Carbon Dioxide 25.9 meq/L (21.0-32.0); Potassium 4.4 meq/L (3.5-5.1)
[2018-04-26] MEDS: Divalproex 250 MG DR Tablet PO SCH (08:01)
[2018-04-26] MEDS: Carvedilol 12.5 MG Tablet PO SCH (08:01)
[2018-04-26] MEDS: Insulin Detemir Inj 1,000 UNIT/10 ML Vial SQ SCH (08:01)
[2018-04-26 08:04] VITALS: TEMP 98.5
--- NOTE | 2018-04-26 11:58 | P.DS ---
Date of admission: 04/19/18 21:35 Primary care physician: Miladys Almaguer MD Attending physician on discharge: Rebel Larkin Anticipated date of discharge: 04/26/18 Brief History from admission: The patient is a 62-year-old male with a past medical history of hypertension, diabetes mellitus, chronic kidney disease, seizure disorder, diastolic congestive heart failure, right bundle branch block and closed head injury. He was brought in to [facility] ED for generalized weakness and symptomatic bradycardia. The patient had an echocardiogram in September, which showed an EF of 65-70%, trace MR and trace TR. He took his antihypertensive medications, which include diltiazem 240 mg 2 tablets, hydralazine 100 mg, Lopressor 100 mg, losartan 100 mg and clonidine 0.1 mg, and then later developed lightheadedness and fatigue. EMS was contacted and on arrival, he was found bradycardic with a heart rate of 24 and systolic blood pressure of 90. The patient was weak and somewhat confused. He was given atropine, which did not improve his heart rate. The patient was placed on transcutaneous pacing at heart rate of 60. He denies any chest pain, palpitations, orthopnea or PND. His laboratory data is significant for acute renal failure with a potassium 6.8, BUN 52 and creatinine 2.86. He was seen by Dr. Nick Moss from cardiology service and was taken emergently to the [facility] where he underwent transvenous pacemaker placement. He was also treated for hyperkalemia with IV insulin, calcium, and sodium bicarbonate. A repeat BMP showed a potassium of 5.9 from 6.8 and a slight increase in his renal dysfunction with a creatinine of 3.1 from 2.86 on arrival. The patient was transferred to CV ICU and is currently on a nonrebreather mask with saturation of 95% and blood pressure of 165/79. The patient is awake, reports shortness of breath. He was given Lasix 40 mg IV push x1 now. He denies any nausea, vomiting or abdominal pain. In addition, he denies any cough or constitutional symptoms. DS: Diagnosis - Discharge Diagnosis (1) Bradyarrhythmia Status: Acute DS: Medications - Discharge Medications Prescriptions: carvedilol [Coreg] 12.5 mg PO BID 30 Days #60 tab nifedipine 30 mg PO BID 30 Days #60 tab DS: Summary Hospital Course: (1) Bradyarrhythmia Code(s): I49.8 - Other specified cardiac arrhythmias Status: Acute Plan: 1. symptomatic bradycardia. - on admission: metoprolol 100mg daily Cardizem 240mg BID clonidine 01.mg BID losartan 100mg daily hydralazine 100mg TID - pt was taken by Dr. Nick Moss to [facility] and underwent transvenous pacemaker placement - Pt now back in NSR - Pt had hyperkalemia which was corrected - Pt's BP medication were changed to - coreg 12.5mg BID - hydralazine 100mg TID (same as admission) - procardia xl 30mg BID - Pt may require further outpt titration of his BP medications - comgmt with Cardiology - Pt to f/u with Cardiology, Dr. Nick Moss, 1 week - Pt to f/u with [facility] PCP in 1 week - pt to f/u with Nephrology, Dr. Kaopor, in 2 weeks. 2. a/ckd nephrology following. impoving - f/u with Dr. Kapoor outpt 3. dm 2 oha on hold on basal/bolus insulin for now. - resume OHA upon discharge 4. low grade fever noted uti noted - Urine Cx --> serratia - IV rocephin - change rocephin to keflex 500mg TID x 3d upon discharge 5. diastolic chf. - Time Spent with Patient Total time spent providing and/or coordinating discharge services: Greater than 30 minutes Exam Vital signs: Vital Signs 04/25/18 13:00 04/25/18 14:00 04/25/18 15:00 Temperature 98.1 F Pulse Rate 72 74 69 Respiratory Rate 17 Blood Pressure 154/72 H Pulse Oximetry 98 04/25/18 16:00 04/25/18 17:00 04/25/18 18:00 Temperature Pulse Rate 70 120 H 122 H Respiratory Rate Blood Pressure Pulse Oximetry 04/25/18 19:00 04/25/18 19:26 04/25/18 20:00 Temperature 98.7 F Pulse Rate 75 74 Respiratory Rate 18 Blood Pressure 171/83 H Pulse Oximetry 97 96 96 04/25/18 21:00 04/25/18 22:00 04/25/18 23:00 Temperature 98.7 F Pulse Rate 74 78 73 Respiratory Rate 16 Blood Pressure 134/61 Pulse Oximetry 93 L 04/26/18 00:00 04/26/18 01:00 04/26/18 02:00 Temperature Pulse Rate 74 70 72 Respiratory Rate Blood Pressure Pulse Oximetry 04/26/18 03:00 04/26/18 04:00 04/26/18 05:00 Temperature 98 F Pulse Rate 74 77 69 Respiratory Rate 16 Blood Pressure 151/75 H Pulse Oximetry 97 04/26/18 06:00 04/26/18 06:58 04/26/18 07:00 Temperature 98.5 F Pulse Rate 75 73 78 Respiratory Rate 16 Blood Pressure 169/80 H Pulse Oximetry 97 04/26/18 08:00 04/26/18 08:27 04/26/18 09:00 Temperature Pulse Rate 78 76 Respiratory Rate Blood Pressure Pulse Oximetry 97 95 Intake & Output 04/25/18 04/26/18 04/26/18 18:59 06:59 18:59 Intake Total 1060 / 1060 240 / 240 Output Total 1490 / 1490 1150 / 1150 Balance -430 / -430 -910 / -910 Weight 82.5 kg Intake: IV 100 / 100 Rocephin Inj 1,000 MG In NS Inj 100 / 100 100 ML @ 200 mls/hr IV.SIG Q24H [facility] Rx#:[id number] Oral 960 / 960 240 / 240 Output: Urine 1490 / 1490 1150 / 1150 Other: Date of Last Bowel Movement 04/25/18 Results Procedures completed during hospitalization: see hospital course Labs on day of discharge: Labs from last 24 hours 04/26/18 04/26/18 04/26/18 11:05 07:58 04:55 Sodium 141 Potassium 4.4 Chloride 106 Carbon Dioxide 25.9 Anion Gap 9 BUN 62 H Creatinine 2.34 H Estimated GFR 28 L POC Glucose 204 H 168 H Random Glucose 154 H Calcium 9.0 04/26/18 04/25/18 04/25/18 00:47 21:55 17:20 Sodium Potassium Chloride Carbon Dioxide Anion Gap BUN Creatinine Estimated GFR POC Glucose 291 H 243 H 211 H Random Glucose Calcium - Impressions ITS Impressions Chest X-Ray 04/21/18 06:00 CONCLUSION: 1. Right IJ central line apparently projecting over the right ventricle. This can be verified with oblique chest radiograph. 2. Improved lung aeration. Discharge Plan - Discharge Disposition Patient Disposition: Discharge Home - Discharge Condition Condition: Stable - Discharge Order Discharge Orders: Discharge Order (Routine); Ordered 04/26/18 Ordered By: Juana Estrella - Discharge Details Anticipated Discharge Date: 04/26/18 Discharge Comment: Followup with your PCP in 1 week, call for an appt - Physicians Team Primary Care Provider: Miladys Almaguer Attending Provider: Lincoln Lopez Other Providers: Zander Merritt MD ; Lincoln Lopez MD ; Nandini Gruber MD
[2018-04-26 12:01] VITALS: BP 157/76; RESP 17; O2SAT 98
[2018-04-26 12:03] VITALS: PULSE 72
== END 2018-04-26 14:13 | disposition home or self-care (01) ==
LOC: NEPC 16:50 → HCVI 19:30 → HCPC 04-24 14:50
PROVIDERS: ADMIT Hospitalist; ATTEND Hospitalist